=== PATIENT | male | born 1970 | race Caucasian/White ===

== ENCOUNTER 2018-01-27 16:37 | Outpatient (REF) | payer BC, SELFPAY ==
[2018-01-27 22:10] LABS: Abs Immature Grans 0.03 k/cumm (0.0-0.09); Absolute Basophil Count 0.02 k/cumm (0.0-0.2); Absolute Eosinophil Count 0.13 k/cumm (0.0-0.7); Absolute Monocyte Count 0.69 k/cumm (0.11-0.7); Absolute Neutrophil Count 7.26 k/cumm (1.2-6.7); Basophils % 0.2; Eosinophils % 1.3; HCT 41.8 % (40.0-50.0); HGB 13.8 g/dL (13.5-17.5); Immature Grans % 0.3; Lymphocytes % 17.3; Mean Corpuscular Volume 93.9 fL (80-95); Mean Platelet Volume 10.5 fL (8.0-11.0); Neutrophils % 73.9; Platelet Count 313 x1000/uL (130-400); RBC 4.45 m/cumm (4.50-6.00); RBC Distribution Width 11.8 % (11.8-14.1); White Blood Cell Count 9.83 k/cumm (4.4-10.8)
[2018-01-27 22:44] LABS: ALT 24 U/L (12-78); AST 26 U/L (15-37); Albumin 3.4 g/dL (3.4-5.0); Alkaline Phosphatase 71 U/L (46-116); Anion Gap 10.3 mmol/L (3-11); BUN 12 mg/dL (7-18); Bilirubin, Total 0.4 mg/dL (0.2-1.0); CO2 29.7 mmol/L (21.0-32.0); CREATININE 0.92 mg/dL (0.70-1.30); Calcium 8.9 mg/dL (8.5-10.1); Chloride 103 mmol/L (98-107); Glucose 108 mg/dL (70-100); Sodium 143 mmol/L (136-145); Total Protein 7.2 g/dL (6.4-8.2)
== END 2018-01-27 16:57 ==
LOC: NCHCN 16:37
PROVIDERS: PCP Internal Medicine; Visit Provider Nurse Practitioner Family
DX: K59.00 Constipation, unspecified (principal); R10.9 Unspecified abdominal pain
CPT/HCPCS: 80053; 85025

== ENCOUNTER 2018-01-29 12:47 | Outpatient (REF) | payer BC, SELFPAY ==
[2018-01-29 21:57] LABS: Abs Immature Grans 0.02 k/cumm (0.0-0.09); Absolute Basophil Count 0.01 k/cumm (0.0-0.2); Absolute Eosinophil Count 0.09 k/cumm (0.0-0.7); Absolute Monocyte Count 1.17 k/cumm (0.11-0.7); Basophils % 0.1; Eosinophils % 0.7; HCT 40.9 % (40.0-50.0); HGB 13.3 g/dL (13.5-17.5); Immature Grans % 0.2; Lymphocytes % 13.1; Mean Corp. HGB Concentration 32.5 g/dL (32.0-36.0); Mean Corpuscular Hemoglobin 30.7 pg (27.0-33.0); Mean Corpuscular Volume 94.5 fL (80-95); Mean Platelet Volume 10.4 fL (8.0-11.0); Monocytes % 8.9; Platelet Count 294 x1000/uL (130-400); RBC 4.33 m/cumm (4.50-6.00); RBC Distribution Width 11.7 % (11.8-14.1)
[2018-01-29 22:14] LABS: Absolute Lymphocyte Count 1.72 k/cumm (1.2-3.4); Absolute Neutrophil Count 10.09 k/cumm (1.2-6.7)
[2018-01-29 22:18] LABS: ALT 22 U/L (12-78); AST 20 U/L (15-37); Albumin 3.3 g/dL (3.4-5.0); Alkaline Phosphatase 67 U/L (46-116); Anion Gap 9.6 mmol/L (3-11); BUN 7 mg/dL (7-18); Bilirubin, Total 0.5 mg/dL (0.2-1.0); CO2 29.4 mmol/L (21.0-32.0); CREATININE 0.89 mg/dL (0.70-1.30); Calcium 8.4 mg/dL (8.5-10.1); Chloride 102 mmol/L (98-107); Glucose 85 mg/dL (70-100); Sodium 141 mmol/L (136-145)
== END 2018-01-29 13:07 ==
LOC: NCHCN 12:47
PROVIDERS: PCP Internal Medicine; Visit Provider Nurse Practitioner Family
DX: K59.00 Constipation, unspecified (principal); R10.30 Lower abdominal pain, unspecified; R30.0 Dysuria
CPT/HCPCS: 80053; 85025; 87086

== ENCOUNTER 2018-01-31 16:24 | Inpatient (IN) | payer BC, SELFPAY ==
[2018-01-31 16:30] VITALS: BP 129/72; PULSE 105; RESP 18; TEMP 36.6; O2SAT 97
--- NOTE | 2018-01-31 16:45 | DI.CT_ITS ---
SYMPTOMS/DIAGNOSIS: LEFT LOWER ABDOMINAL PAIN ABDOMINAL AND PELVIC CT: CT examination of the abdomen and pelvis was performed with a bolus infusion of 100 cc of Omnipaque 350. Images obtained through the lung bases are unremarkable. The liver, spleen and pancreas appear normal. Gallbladder and bile ducts are CT normal. Adrenals and kidneys appear normal. Abdominal aorta is of normal diameter and no major vascular abnormality is seen. No significant abdominal wall hernia is seen. No significant abdominal or pelvic adenopathy is seen. Appendix appears normal. There is marked wall thickening of the sigmoid colon with very prominent pericolonic fat edema and some small quantities of free fluid in the pelvis. There is an intramural irregular fluid collection measuring up to about 5 x 3 cm in diameter on transaxial imaging consistent with an intramural abscess. No free air identified. CONCLUSION: Severe diverticulitis with presumed intramural abscess as described above.
[2018-01-31 16:46] LABS: Bilirubin Negative (Negative); Blood Trace-lysed (Negative); Clarity Clear; Glucose Negative (Negative); Ketones Negative (Negative); Leukocyte Esterase Negative (Negative); Nitrite Negative (Negative)
--- NOTE | 2018-01-31 16:46 | W.ED.GENAD ---
Discharge Plan Disposition Patient Disposition: [facility] INPATIENT Condition: Stable Discharge Details Chief Complaint: Abd Prob Clinical Impression: Diverticulitis of intestine with abscess Reason For Visit: DIVERTICULITIS WITH ABSCESS Admit Date/Time: 01/31/18 18:52 Admit Provider: Diane House Attending Provider: Diane House Primary Care Provider: Shubham Tabor ED Provider: Blas Francis Medical Decision Making 47 yo male wh odenies chronic medical problems comes in with cc of 1 week of left lower abdominal pain, constipation and difficulty urinating. Based on his exam could be diverticulitis, will image to eval for this among other pathologies. No upper abdominal pain to suggest hepatitis. No testicle pain or swelling and normal cremasteric reflex so do not suspect torsion at this time labs unremarkable, pt remains stable. His CT shows diverticulitis with 3cm intramural abscess per radiology. Spoke with Dr. House who will admit, zosyn ordered. Pt agrees with plan Differential Diagnosis diverticulitis, kidney stone, constipation Imaging Data Radiologic Study: Attestation: I personally reviewed and interpreted this imaging study as follows: Imaging: CT Scan Radiologist's impression: diverticulitis with abscess Lab Data Lab results reviewed: Yes I reviewed the patient's lab results. HPI General Mode of arrival: ambulatory. Date/Time Provider Initiated Documentation: 01/31/18 16:27. Limitations to Documentation: no limitations. Information obtained by: patient. History of Present Illness 47 year old M presents to the emergency department with the chief complaint of abdominal pain, described as moderate, with intensity rated at 6. Quality is described as stabbing, and is localized to the abdomen. Patient reports no radiation. Patient started experiencing this week(s) (1) and it has been constant. No relieving factors improve symptom(s), No exacerbating factors reported . Patient notes other (difficulty urinating, constipation). Patient did receive the following treatments prior to arrival, none Related Data Home Medications Medication Instructions Recorded Confirmed Unknown [No Known Home Meds] 01/31/18 01/31/18 Allergies Allergy/AdvReac Type Severity Reaction Status Date / Time No Known Allergies Allergy Unverified 01/31/18 18:02 General Stated Complaint: Abd Prob CESAR: 3 Review of Systems Review of Systems All systems reviewed & are unremarkable except as noted in HPI and below Constitutional Denies chills and Denies fever(s) ENT Denies change in voice Cardiovascular Denies chest pain and Denies dyspnea Respiratory Denies dyspnea Gastrointestinal Denies vomiting Allergic/Immunologic Reports urticaria PFSH Social History Smoking/Tobacco Use Status: Never Exam Const General: no acute distress Orientation: alert HENMT Head: normal to inspection Ears: external ears normal General nose exam: external nose normal Mouth: moist mucous membranes Eyes General: appearance normal, both eyes and all related structures Neck Neck: normal visual inspection Resp Effort & Inspection: normal respiratory effort and able to speak in complete sentences Cardio Rate: regular rate GI Inspection: normal to inspection and other (llq pain without guarding or rebound, no other pain elsewhere) Skin General skin exam: no rashes or lesions noted Neuro General: alert and oriented x3 Extrem General: normal to inspection Psych Mental Status: mental status grossly normal Course Vital Signs Temperature 36.6 C 01/31/18 16:30 Pulse 105 H 01/31/18 16:30 Respiratory Rate 18 01/31/18 16:30 Blood Pressure 129/72 01/31/18 16:30 Pulse Oximetry 97 01/31/18 16:30 Temperature 36.6 C 01/31/18 16:30 Temperature Source Temporal Artery Scan 01/31/18 16:30 Pulse 105 H 01/31/18 16:30 Respiratory Rate 18 01/31/18 16:30 Respiratory Effort Non-Labored 01/31/18 16:34 Blood Pressure 129/72 01/31/18 16:30 Blood Pressure Position Sitting 01/31/18 16:30 Pulse Oximetry 97 01/31/18 16:30 Oxygen Delivery Method Room Air 01/31/18 16:30 Oxygen Flow Rate 0 01/31/18 16:30 Pain Level 8 01/31/18 16:30
--- NOTE | 2018-01-31 16:49 | ED.GENADUL_ITS ---
Discharge Plan Disposition Patient Disposition: [facility] INPATIENT Condition: Stable Discharge Details Chief Complaint: Abd Prob Clinical Impression: Diverticulitis of intestine with abscess Reason For Visit: DIVERTICULITIS WITH ABSCESS Admit Date/Time: 01/31/18 18:52 Admit Provider: Diane House Attending Provider: Diane House Primary Care Provider: Shubham Tabor ED Provider: Blas Francis Medical Decision Making 47 yo male wh odenies chronic medical problems comes in with cc of 1 week of left lower abdominal pain, constipation and difficulty urinating. Based on his exam could be diverticulitis, will image to eval for this among other pathologies. No upper abdominal pain to suggest hepatitis. No testicle pain or swelling and normal cremasteric reflex so do not suspect torsion at this time labs unremarkable, pt remains stable. His CT shows diverticulitis with 3cm intramural abscess per radiology. Spoke with Dr. House who will admit, zosyn ordered. Pt agrees with plan Differential Diagnosis diverticulitis, kidney stone, constipation Imaging Data Radiologic Study: Attestation: I personally reviewed and interpreted this imaging study as follows: Imaging: CT Scan Radiologist's impression: diverticulitis with abscess Lab Data Lab results reviewed: Yes I reviewed the patient's lab results. HPI General Mode of arrival: ambulatory . Date/Time Provider Initiated Documentation: 01/31/18 16:27 . Limitations to Documentation: no limitations . Information obtained by: patient . History of Present Illness 47 year old M presents to the emergency department with the chief complaint of abdominal pain, described as moderate, with intensity rated at 6. Quality is described as stabbing, and is localized to the abdomen. Patient reports no radiation. Patient started experiencing this week(s) (1) and it has been constant. No relieving factors improve symptom(s), No exacerbating factors reported . Patient notes other (difficulty urinating, constipation). Patient did receive the following treatments prior to arrival, none Related Data Home Medications Medication Instructions Recorded Confirmed Unknown [No Known Home Meds] 01/31/18 01/31/18 Allergies Allergy/AdvReac Type Severity Reaction Status Date / Time No Known Allergies Allergy Unverified 01/31/18 18:02 General Stated Complaint: Abd Prob CESAR: 3 Review of Systems Review of Systems All systems reviewed & are unremarkable except as noted in HPI and below Constitutional Denies chills and Denies fever(s) ENT Denies change in voice Cardiovascular Denies chest pain and Denies dyspnea Respiratory Denies dyspnea Gastrointestinal Denies vomiting Allergic/Immunologic Reports urticaria PFSH Social History Smoking/Tobacco Use Status: Never Exam Const General: no acute distress Orientation: alert HENMT Head: normal to inspection Ears: external ears normal General nose exam: external nose normal Mouth: moist mucous membranes Eyes General: appearance normal, both eyes and all related structures Neck Neck: normal visual inspection Resp Effort & Inspection: normal respiratory effort and able to speak in complete sentences Cardio Rate: regular rate GI Inspection: normal to inspection and other (llq pain without guarding or rebound , no other pain elsewhere) Skin General skin exam: no rashes or lesions noted Neuro General: alert and oriented x3 Extrem General: normal to inspection Psych Mental Status: mental status grossly normal Course Vital Signs Temperature 36.6 C 01/31/18 16:30 Pulse 105 H 01/31/18 16:30 Respiratory Rate 18 01/31/18 16:30 Blood Pressure 129/72 01/31/18 16:30 Pulse Oximetry 97 01/31/18 16:30 Temperature 36.6 C 01/31/18 16:30 Temperature Source Temporal Artery Scan 01/31/18 16:30 Pulse 105 H 01/31/18 16:30 Respiratory Rate 18 01/31/18 16:30 Respiratory Effort Non-Labored 01/31/18 16:34 Blood Pressure 129/72 01/31/18 16:30 Blood Pressure Position Sitting 01/31/18 16:30 Pulse Oximetry 97 01/31/18 16:30 Oxygen Delivery Method Room Air 01/31/18 16:30 Oxygen Flow Rate 0 01/31/18 16:30 Pain Level 8 01/31/18 16:30
[2018-01-31] MEDS: Ketorolac 15 MG/ML VIAL (16:59)
[2018-01-31] MEDS: Normal Saline 1,000 ML 1000 ML IV (16:59)
[2018-01-31 17:00] LABS: Bacteria Negative HPF (Negative); C & S Indicated? No; Casts Negative LPF (Negative); Crystals Negative HPF (Negative); Epithelial Cells Negative HPF (Negative); Mucus Negative (Negative); Other Cells Negative (Negative); RBC 0-2 (0-2); WBC Negative HPF (0-5)
[2018-01-31 17:02] LABS: Abs Immature Grans 0.03 k/cumm (0.0-0.09); Absolute Basophil Count 0.01 k/cumm (0.0-0.2); Absolute Lymphocyte Count 1.43 k/cumm (1.2-3.4); Absolute Monocyte Count 1.05 k/cumm (0.11-0.7); Absolute Neutrophil Count 7.81 k/cumm (1.2-6.7); Basophils % 0.1; HCT 43.7 % (40.0-50.0); HGB 14.5 g/dL (13.5-17.5); Immature Grans % 0.3; Lymphocytes % 13.7; Mean Corp. HGB Concentration 33.2 g/dL (32.0-36.0); Mean Corpuscular Hemoglobin 30.6 pg (27.0-33.0); Mean Corpuscular Volume 92.2 fL (80-95); Mean Platelet Volume 9.7 fL (8.0-11.0); Monocytes % 10.1; Neutrophils % 74.8; Platelet Count 310 x1000/uL (130-400); RBC 4.74 m/cumm (4.50-6.00); RBC Distribution Width 11.6 % (11.8-14.1); White Blood Cell Count 10.43 k/cumm (4.4-10.8)
[2018-01-31 17:15] LABS: ALT 22 U/L (12-78); AST 18 U/L (15-37); Albumin 3.2 g/dL (3.4-5.0); Alkaline Phosphatase 67 U/L (46-116); Anion Gap 10.4 mmol/L (3-11); BUN 8 mg/dL (7-18); Bilirubin, Total 0.5 mg/dL (0.2-1.0); CO2 29.6 mmol/L (21.0-32.0); CREATININE 1.04 mg/dL (0.70-1.30); Chloride 97 mmol/L (98-107); Glucose 104 mg/dL (70-100); Lipase 83 U/L (73-393); Potassium 3.7 mmol/L (3.5-5.1); Sodium 137 mmol/L (136-145); Total Protein 8.3 g/dL (6.4-8.2)
[2018-01-31] MEDS: Omnipaque 350 MG/ML 100 ML BTL IJ (17:31)
--- NOTE | 2018-01-31 18:05 | DI.VRAD_ITS ---
EXAM: CT Abdomen and Pelvis With Intravenous Contrast CLINICAL HISTORY: 47 years old, male; Pain; Abdominal pain; Localized; Left lower quadrant (llq); Patient HX: Left lower abdominal pain TECHNIQUE: Axial computed tomography images of the abdomen and pelvis with intravenous contrast. Coronal and sagittal reformatted images were created and reviewed. COMPARISON: No relevant prior studies available. FINDINGS: Appendix appears normal. Inflammatory process of the mid sigmoid colon consistent with a focal colitis less likely diverticulitis. There appears to be an approximate 3 cm intramural abscess. No additional abscess formation or extraluminal air. No evidence of bowel obstruction. No obstructive uropathy. No significant free fluid. IMPRESSION: Marked diverticulitis of the mid sigmoid colon with a prominent intramural abscess but no additional abscess formation or extraluminal air. Dictated and Authenticated by: Rigo Paulino MD. Ordering:GLENDA CASIANO MD
[2018-01-31 18:57] VITALS: BP 108/67; PULSE 76; RESP 16; O2SAT 94
[2018-01-31 19:15] VITALS: BP 96/58; PULSE 76; RESP 16; TEMP 36.4; O2SAT 94
[2018-01-31] MEDS: Normal Saline 1,000 ML 150 ML IV (20:05)
[2018-01-31] MEDS: PIPERACILLIN/TAZO 4.5 GM in Normal Saline 100 ML IVPB (20:05)
[2018-01-31 21:40] VITALS: BP 113/58; PULSE 68; RESP 16; O2SAT 100
[2018-01-31] MEDS: MORPHine 4 MG/ML SYR IVP (21:41)
[2018-01-31] MEDS: Normal Saline Flush 10 ML SYR 20 ML (21:56)
[2018-01-31] MEDS: ACETAMINOPHEN 1,000 MG/100 ML BTL 400 MG IVPB (22:24)
[2018-02-01] MEDS: PIPERACILLIN/TAZO 4.5 GM in Normal Saline 100 ML IVPB ×4 (02:05→20:15)
[2018-02-01] MEDS: Ketorolac 30 MG/ML VIAL IM ×2 (02:05→07:54)
[2018-02-01] MEDS: Normal Saline Flush 10 ML SYR 20 ML ×2 (02:06→20:15)
[2018-02-01] MEDS: ACETAMINOPHEN 1,000 MG/100 ML BTL 400 MG IVPB ×3 (03:53→16:15)
[2018-02-01] MEDS: Normal Saline 1,000 ML 150 ML IV ×4 (03:53→18:08)
[2018-02-01 06:48] LABS: Abs Immature Grans 0.01 k/cumm (0.0-0.09); Absolute Basophil Count 0.02 k/cumm (0.0-0.2); Absolute Eosinophil Count 0.11 k/cumm (0.0-0.7); Absolute Lymphocyte Count 1.06 k/cumm (1.2-3.4); Absolute Monocyte Count 0.79 k/cumm (0.11-0.7); Absolute Neutrophil Count 6.38 k/cumm (1.2-6.7); Basophils % 0.2; Eosinophils % 1.3; HGB 12.6 g/dL (13.5-17.5); Immature Grans % 0.1; Lymphocytes % 12.7; Mean Corp. HGB Concentration 32.3 g/dL (32.0-36.0); Mean Corpuscular Hemoglobin 30.4 pg (27.0-33.0); Mean Corpuscular Volume 94.2 fL (80-95); Mean Platelet Volume 9.6 fL (8.0-11.0); Monocytes % 9.4; Neutrophils % 76.3; Platelet Count 257 x1000/uL (130-400); RBC 4.14 m/cumm (4.50-6.00); RBC Distribution Width 11.5 % (11.8-14.1); White Blood Cell Count 8.37 k/cumm (4.4-10.8)
[2018-02-01 07:01] LABS: ALT 16 U/L (12-78); AST 15 U/L (15-37); Albumin 2.5 g/dL (3.4-5.0); Alkaline Phosphatase 57 U/L (46-116); Anion Gap 7.8 mmol/L (3-11); BUN 10 mg/dL (7-18); Bilirubin, Total 0.5 mg/dL (0.2-1.0); CO2 28.2 mmol/L (21.0-32.0); CREATININE 0.99 mg/dL (0.70-1.30); Calcium 8.1 mg/dL (8.5-10.1); Chloride 105 mmol/L (98-107); Glucose 91 mg/dL (70-100); Potassium 3.8 mmol/L (3.5-5.1); Sodium 141 mmol/L (136-145); Total Protein 6.6 g/dL (6.4-8.2)
[2018-02-01 07:35] VITALS: BP 104/70; PULSE 59; RESP 18; TEMP 37.1; O2SAT 96
--- NOTE | 2018-02-01 11:18 | PHARADMIT ---
Addendum entered by Lorenza Beauchamp 02/04/18 11:50: Pharmacy Note Subjective diverticulitis with abcess, may need more imaging depending on labs Objective vs ok, Assessment pip/tazo IV continues day 5, BC pending Plan continue to watch VS, labs and for med changes Original Note: Addendum entered by Delia Ayers 02/03/18 10:46: Pharmacy Note Subjective low grade fever overnight per progress note Objective VS-okay WBC-11.00(up) Assessment zosyn continues (day 4 starts this evening) acetaminophen and pantoprazole changed from IV to PO yesterday Plan continue to watch VS, labs and for med changes Original Note: Addendum entered by Delia Ayers 02/02/18 14:36: Pharmacy Note Subjective started on clear liquids today Objective VS-okay no labs Assessment zosyn continues (day 3 starts this evening) has been using ketorolac and acetaminophen for pain control no med changes Plan IV abx for a couple of days then PO, if fails IV abs may need surgery Original Note: Admission Pharmacy Clinical Review DIVERTICULITIS W/ABCESS (Obs) Code Status Full Code Current Weight 77.111 kg Renally Cleared and Narrow Therapeutic Index Meds QTc Value / Action Taken BP Control, Fever BP 104/70 Afebrile Pain 6/10 Electrolytes reviewed in range DVT Prophylaxis Opiate Usage / Scheduled Bowel Regimen Ordered Yes/NO (diet is NPO at this time) Plt/SCr for Heparin / Enoxaparin Plt 257 SCr 0.99 INR for Warfarin H/H stable, WBC/Bands H/H 12.6/39.0 WBC 8.37 Antibiotic appropriateness Zosyn 4.5gm q6h Cultures and Sensitivities Surgical ABX d/c within 24 hr DM control / Insulin Dosing BG 91 Heart Failure (Check EF%) (PATRICK's, B-Block, Diuretics) IV to PO Switch Home Meds Reviewed Home Meds Not Ordered No home meds Comments CT shows 3cm abscess
--- NOTE | 2018-02-01 11:27 | PDOC.CMIN ---
- If Service Date Differs Date of service: 02/01/18 Time of Service: 11:27 Care Management Initial Assess REASON FOR HOSPITALIZATION:: Diverticulitis/abscess PAST MEDICAL HISTORY/PAST SURGICAL HISTORY:: No past medical history PREVIOUS FUNCTIONAL STATUS/SOCIAL/FAMILY SUPPORTS:: Manuel is a 47 year old male that lives locally and works at [employer]. His Nany is present he has two children one in 8th grade and the other in highschool. He is independent at home and active in the community. CURRENT FUNCTIONAL STATUS:: Manuel describes events that led to admission. He has been having abdominal pain on and off he was seen by his primary care several times prior to coming into the ED. He spoke to the oncall provider who directed him to the ED. Today he is alert he states his pain is well controlled. He does not want to take opioid pain relievers and states Toradol and Tylenol are controlling his pain. He states the morphine made him awful. ADVANCE DIRECTIVES:: None on file CM left a packet for review with patient Has patient been provided with information about the portal?: Yes Did the patient sign up for the portal?: No (provided information) CODE STATUS:: Full Code INSURANCE COVERAGE / FINANCIAL ISSUES:: BCBS CURRENT HOME/COMMUNITY SERVICES/EQUIPMENT:: None PRIMARY CARE PHYSICIAN:: POTENTIAL DISCHARGE NEEDS:: Follow up with surgical provider and primary scheduled prior to discharge. PATIENT/FAMILY EDUCATION NEEDS:: Discharge education, limitations and follow up plan of care. ANTICIPATED BARRIERS TO DISCHARGE:: None identified TRANSPORTATION:: Via private car with spouse PLAN:: Manuel is receiving IV antibiotics, toradol, and tylenol IV. He will be dicharged home when medically ready per provider. No anticipated services at time of discharge. CM to continue to provide support to pt, family and care team.
--- NOTE | 2018-02-01 11:38 | W.PM.HP.N ---
Date of service: 02/01/18 Time of Service: 11:00 Assessment and Plan (1) Diverticulitis of intestine with abscess without bleeding: Current visit: Yes Status: Acute A\\ Diverticulitis of sigmoid colon with 3 cm abscess. No free air. MOst likely has had mild diverticulitis since June. P\\ 1. Diverticulitis: Iv antibiotics for 2-3 days then will switch to Augmentin 875 mg tid for 14 days. If he fails IV antibiotic therapy may need laparoscopy with washout and drain placement vs Percutaneous drain placement vs sigmoid colectomy and ileostomy. This was all discussed in detail with Manuel and his . 2. Activity: up and ambulating tid 3. DVT prophylaxis: Lovenox 40 mg SQ daily and SCD's while in bed 4. Nutrition: NPO for now. May start on clear liquids tomorrow if his pain is better. Discussed low fiber diet once he is eating solids, for 2-3 weeks. 5. Pain Control: Continue with Toradol and Acetaminophen IV. Also has dilauded if needed. 6. Dis[facility]: [facility] days of IV antibiotics. Discharge to home once Medically stable. Will have him follow up with me in the office after discharge. he will need a Colonoscopy in 6-8 weeks to evaluate severity of his diverticulosis. Will also discuss at that time surgery vs no surgery. History of Present Illness Chief Complaint: Diverticulitis Narrative: Mr. Santana is a pleasant 47 year old male who came to the ER yesterday with 1 week of painful constipation. CT scan showed complicated diverticulitis with a 3 cm abscess. On talking to him he tells me that he has not felt right since June. In June he had a bout of painful constipation. He was seen at his PCP's and treated for constipation. He then had 2 more milder episodes of pain. One week ago his pain got acutely worse and he was seen on at his PCP office. He was started on Cipro for presumed diverticulitis as well as given a medication for his prostate. He states that he is having dysuria and urinary frequency. His pain is located in the LLQ and suprapubic area. His pain is about the same as last night. The toradol and tylenol have been keeping him comfortable. He did have some Morphine that caused him to have chest tightness. He has never had a colonoscopy. He also tells me that since june his BM's have not been normal. He used to go to the bathroom daily and the BM's were soft. He doesn't usually have constipation. His mother has diverticulitis. Review of Systems Constitutional Reports anorexia, Denies fever(s) and Denies lethargy Eyes Reports system reviewed and no additional complaints, except as docu Cardiovascular Denies chest pain, Denies chest pain at rest, Denies chest pain with activity, Denies rapid heart rate, Denies palpitations, Denies dyspnea and Denies dyspnea on exertion Respiratory Denies dyspnea and Denies dyspnea on exertion Gastrointestinal Reports as per HPI Genitourinary Reports as per HPI Musculoskeletal Reports system reviewed and no additional complaints, except as docu Endocrine Reports system reviewed and no additional complaints, except as docu and Denies palpitations Hematologic/Lymphatic Denies easy bleeding and Denies easy bruising PFSH Family History Mother Diverticulosis Medical History Diverticulitis of intestine with abscess without bleeding (Acute) Social History household members: family housing: house marital status: current occupational status: employed current occupation: [employer] Smoking/Tobacco Use Status: Never alcohol intake: current alcohol intake frequency: a few times a month substance use type: does not use Meds Home Medications Medication Instructions Recorded Confirmed Type Unknown [No Known Home Meds] 01/31/18 01/31/18 History Allergies Allergy/AdvReac Type Severity Reaction Status Date / Time morphine AdvReac Mild chest Verified 02/01/18 11:52 tighteness Exam Const General: healthy appearing, comfortable and no acute distress HENMT Head: normocephalic and atraumatic Resp Effort & Inspection: normal respiratory effort Auscultation: clear to auscultation bilaterally Cardio Rate: regular rate Rhythm: regular rhythm Heart Sounds: no gallops, no murmurs and no rubs GI Inspection: normal to inspection Palpation: soft, guarding in the LLQ and other (suprapubic) and no hepatosplenomegaly Auscultation: normal bowel sounds Rectal Exam: deferred Extrem General: no clubbing, cyanosis or edema Results Labs : 02/01/18 06:30 02/01/18 06:30 Laboratory Results - last 24 hr 01/31/18 01/31/18 01/31/18 16:39 16:50 16:50 WBC 10.43 RBC 4.74 Hgb 14.5 Hct 43.7 MCV 92.2 MCH 30.6 MCHC 33.2 RDW 11.6 L Plt Count 310 MPV 9.7 Immature Gran % 0.3 Neutrophils % 74.8 Lymphocytes % 13.7 Monocytes % 10.1 Eosinophils % 1.0 Basophils % 0.1 Absolute Neutrophils 7.81 H Absolute Lymphocytes 1.43 Absolute Monocytes 1.05 H Absolute Eosinophils 0.10 Absolute Basophils 0.01 Sodium 137 Potassium 3.7 Chloride 97 L Carbon Dioxide 29.6 Anion Gap 10.4 BUN 8 Creatinine 1.04 Estimated GFR/1.73 m2 >= 60.00 Glucose 104 H Calcium 9.0 Total Bilirubin 0.5 AST 18 ALT 22 Alkaline Phosphatase 67 Total Protein 8.3 H Albumin 3.2 L Lipase 83 Urine Color Yellow Urine Clarity Clear Urine pH 6.0 Ur Specific [place] 1.010 Urine Protein Negative Urine Ketones Negative Urine Blood Trace-lysed H Urine Nitrite Negative Urine Bilirubin Negative Urine Urobilinogen 1.0 H Ur Leukocyte Esterase Negative Urine RBC 0-2 Urine WBC Negative Ur Epithelial Cells Negative Urine Crystals Negative Urine Bacteria Negative Urine Casts Negative Urine Mucus Negative Urine Other Negative Ur Culture Indicated? No Urine Glucose Negative 02/01/18 02/01/18 06:30 06:30 WBC 8.37 RBC 4.14 L Hgb 12.6 L Hct 39.0 L MCV 94.2 MCH 30.4 MCHC 32.3 RDW 11.5 L Plt Count 257 MPV 9.6 Immature Gran % 0.1 Neutrophils % 76.3 Lymphocytes % 12.7 Monocytes % 9.4 Eosinophils % 1.3 Basophils % 0.2 Absolute Neutrophils 6.38 Absolute Lymphocytes 1.06 L Absolute Monocytes 0.79 H Absolute Eosinophils 0.11 Absolute Basophils 0.02 Sodium 141 Potassium 3.8 Chloride 105 Carbon Dioxide 28.2 Anion Gap 7.8 BUN 10 Creatinine 0.99 Estimated GFR/1.73 m2 >= 60.00 Glucose 91 Calcium 8.1 L Total Bilirubin 0.5 AST 15 ALT 16 Alkaline Phosphatase 57 Total Protein 6.6 Albumin 2.5 L Lipase Urine Color Urine Clarity Urine pH Ur Specific [place] Urine Protein Urine Ketones Urine Blood Urine Nitrite Urine Bilirubin Urine Urobilinogen Ur Leukocyte Esterase Urine RBC Urine WBC Ur Epithelial Cells Urine Crystals Urine Bacteria Urine Casts Urine Mucus Urine Other Ur Culture Indicated? Urine Glucose Last Vital Signs Temp 98.8 F 02/01/18 07:35 Pulse 59 L 02/01/18 07:35 Resp 18 02/01/18 07:35 BP 104/70 02/01/18 07:35 Pulse Ox 96 02/01/18 07:35
[2018-02-01 12:32] VITALS: BP 107/67; PULSE 58; RESP 17; TEMP 36.8; O2SAT 99
[2018-02-01] MEDS: Ketorolac 30 MG/ML VIAL IV ×2 (13:39→20:14)
[2018-02-01] MEDS: Pantoprazole 40 MG VIAL IVP (13:40)
[2018-02-01] MEDS: Enoxaparin 40 MG/0.4 ML SYR SC (13:40)
[2018-02-01 15:56] VITALS: BP 104/68; PULSE 58; RESP 18; TEMP 36.5; O2SAT 98
[2018-02-01 20:30] VITALS: BP 104/65; PULSE 56; RESP 18; TEMP 36.9; O2SAT 98
[2018-02-02 00:26] VITALS: BP 119/76; PULSE 69; RESP 18; TEMP 36.3; O2SAT 98
[2018-02-02] MEDS: PIPERACILLIN/TAZO 4.5 GM in Normal Saline 100 ML IVPB ×2 (02:09→07:52)
[2018-02-02] MEDS: Ketorolac 30 MG/ML VIAL IV ×2 (02:09→21:49)
--- NOTE | 2018-02-02 07:03 | W.PM.PROGNOT ---
Assessment and Plan (1) Diverticulitis of intestine with abscess without bleeding: Current visit: No Status: Acute A\\ Diverticulitis of sigmoid colon with 3 cm abscess. No free air. MOst likely has had mild diverticulitis since June. P\\ 1. Diverticulitis: Iv antibiotics for 2-3 days then will switch to Augmentin 875 mg tid for 14 days. If he fails IV antibiotic therapy may need laparoscopy with washout and drain placement vs Percutaneous drain placement vs sigmoid colectomy and ileostomy. This was all discussed in detail with Manuel and his . 2. Activity: up and ambulating tid 3. DVT prophylaxis: Lovenox 40 mg SQ daily and SCD's while in bed 4. Nutrition: Start on clear liquids 5. Pain Control: Continue with Toradol and Acetaminophen IV. Also has dilauded if needed. 6. Disposition: He will be here for 2 more days most likely so he can get at least 3 days of IV antibiotics. Discharge to home once Medically stable. Will have him follow up with me in the office after discharge. he will need a Colonoscopy in 6-8 weeks to evaluate severity of his diverticulosis. Will also discuss at that time surgery vs no surgery. Subjective Interval history since last seen: Patient is feeling a little better. pain is not as bad. He is passing flatus. No BM yet. Exam Resp Auscultation: clear to auscultation bilaterally Cardio Rate: regular rate Rhythm: regular rhythm GI Palpation: soft and tender (mild LLQ and suprapubic pain) Objective Objective Clinical Data: Abnormal lab results 02/01/18 Range/Units 06:30 Calcium 8.1 L (8.5-10.1) mg/dL Albumin 2.5 L (3.4-5.0) g/dL Vital Signs Temperature 97.3 F L 02/02/18 00:26 Temperature Source Tympanic 02/02/18 00:26 Pulse 69 02/02/18 00:26 Pulse Rhythm Regular 02/01/18 19:58 Respiratory Rate 18 02/02/18 00:26 Respiratory Effort 02/01/18 19:58 Respiratory Depth Normal 02/01/18 19:58 Respiratory Pattern Normal 02/01/18 19:58 Blood Pressure 119/76 02/02/18 00:26 Blood Pressure Position Sitting 01/31/18 16:30 Pulse Oximetry 98 02/02/18 00:26 Oxygen Delivery Method Room Air 02/02/18 00:26 Oxygen Flow Rate 0 02/02/18 00:26 Pain Level 6 02/02/18 02:09 Intake & Output 02/01/18 02/01/18 02/02/18 11:59 23:59 11:59 Intake Total 1732.5 / 1732.5 1300.0 / 1300.0 Output Total 700 / 700 300 / 300 Balance 1032.5 / 1032.5 1000.0 / 1000.0 Intake: IV 1732.5 / 1732.5 1300.0 / 1300.0 Output: Urine 700 / 700 300 / 300 Other: Urine Color Light [place] Yellow Urine Appearance Clear Clear Comment independantly to toilet Voiding Methods Toilet Laboratory Results WBC 8.37 k/cumm (4.4-10.8) 02/01/18 06:30 RBC 4.14 m/cumm (4.50-6.00) L 02/01/18 06:30 Hgb 12.6 g/dL (13.5-17.5) L 02/01/18 06:30 Hct 39.0 % (40.0-50.0) L 02/01/18 06:30 MCV 94.2 fL (80-95) 02/01/18 06:30 MCH 30.4 pg (27.0-33.0) 02/01/18 06:30 MCHC 32.3 g/dL (32.0-36.0) 02/01/18 06:30 RDW 11.5 % (11.8-14.1) L 02/01/18 06:30 Plt Count 257 x1000/uL (130-400) 02/01/18 06:30 MPV 9.6 fL (8.0-11.0) 02/01/18 06:30 Immature Gran % 0.1 02/01/18 06:30 Neutrophils % 76.3 02/01/18 06:30 Lymphocytes % 12.7 02/01/18 06:30 Monocytes % 9.4 02/01/18 06:30 Eosinophils % 1.3 02/01/18 06:30 Basophils % 0.2 02/01/18 06:30 Absolute Neutrophils 6.38 k/cumm (1.2-6.7) 02/01/18 06:30 Absolute Lymphocytes 1.06 k/cumm (1.2-3.4) L 02/01/18 06:30 Absolute Monocytes 0.79 k/cumm (0.11-0.7) H 02/01/18 06:30 Absolute Eosinophils 0.11 k/cumm (0.0-0.7) 02/01/18 06:30 Absolute Basophils 0.02 k/cumm (0.0-0.2) 02/01/18 06:30 Sodium 141 mmol/L (136-145) 02/01/18 06:30 Potassium 3.8 mmol/L (3.5-5.1) 02/01/18 06:30 Chloride 105 mmol/L (98-107) 02/01/18 06:30 Carbon Dioxide 28.2 mmol/L (21.0-32.0) 02/01/18 06:30 Anion Gap 7.8 mmol/L (3-11) 02/01/18 06:30 BUN 10 mg/dL (7-18) 02/01/18 06:30 Creatinine 0.99 mg/dL (0.70-1.30) 02/01/18 06:30 Estimated GFR/1.73 m2 >= 60.00 (mL/min/1.73m2) 02/01/18 06:30 Glucose 91 mg/dL (70-100) 02/01/18 06:30 Calcium 8.1 mg/dL (8.5-10.1) L 02/01/18 06:30 Total Bilirubin 0.5 mg/dL (0.2-1.0) 02/01/18 06:30 AST 15 U/L (15-37) 02/01/18 06:30 ALT 16 U/L (12-78) 02/01/18 06:30 Alkaline Phosphatase 57 U/L (46-116) 02/01/18 06:30 Total Protein 6.6 g/dL (6.4-8.2) 02/01/18 06:30 Albumin 2.5 g/dL (3.4-5.0) L 02/01/18 06:30 Lipase 83 U/L (73-393) 01/31/18 16:50 Urine Color Yellow (Yellow) 01/31/18 16:39 Urine Clarity Clear 10/13/18 16:39 Urine pH 6.0 (5-8) 01/31/18 16:39 Ur Specific [place] 1.010 (1.005-1.025) 01/31/18 16:39 Urine Protein Negative mg/dL (Negative) 01/31/18 16:39 Urine Ketones Negative mg/dL (Negative) 01/31/18 16:39 Urine Blood Trace-lysed (Negative) H 01/31/18 16:39 Urine Nitrite Negative (Negative) 01/31/18 16:39 Urine Bilirubin Negative (Negative) 01/31/18 16:39 Urine Urobilinogen 1.0 EU/dL (Up TO 0.2) H 01/31/18 16:39 Ur Leukocyte Esterase Negative (Negative) 01/31/18 16:39 Urine RBC 0-2 (0-2) 01/31/18 16:39 Urine WBC Negative HPF (0-5) 01/31/18 16:39 Ur Epithelial Cells Negative HPF (Negative) 01/31/18 16:39 Urine Crystals Negative HPF (Negative) 01/31/18 16:39 Urine Bacteria Negative HPF (Negative) 01/31/18 16:39 Urine Casts Negative LPF (Negative) 01/31/18 16:39 Urine Mucus Negative (Negative) 01/31/18 16:39 Urine Other Negative (Negative) 01/31/18 16:39 Ur Culture Indicated? No 01/31/18 16:39 Urine Glucose Negative mg/dL (Negative) 01/31/18 16:39
[2018-02-02] MEDS: Normal Saline 1,000 ML 150 ML IV (07:52)
[2018-02-02 08:12] VITALS: BP 116/75; PULSE 69; RESP 18; TEMP 37.1; O2SAT 99
[2018-02-02] MEDS: Normal Saline Flush 10 ML SYR IVP ×4 (10:00→21:51)
[2018-02-02] MEDS: ACETAMINOPHEN 1,000 MG/100 ML BTL 400 MG IVPB (13:46)
[2018-02-02 14:00] VITALS: BP 116/73; PULSE 65; RESP 18; TEMP 37.5; O2SAT 95
[2018-02-02] MEDS: Enoxaparin 40 MG/0.4 ML SYR SC (14:36)
--- NOTE | 2018-02-02 14:57 | PDOC.CMPRO ---
- If Service Date Differs Date of service: 02/02/18 Time of Service: 14:57 Care Management Progress Note S/O: CM met with patient at the bedside with his spouse. They have questions about the treatment plan of care. CM reviewed the current plan with patient and spouse including antibiotic therapy, pain management and transition to oral antibiotics upon discharge. Nany (spouse) would like to be updated by provider during rounding. Manuel and Nany have two children and one of their children is having her braces put on this week. Nany wants to ensure that she is aware of her spouse treatment while she continues to manage the children health care as well. CM provided support and active listening with patient and family, also into see patient. Manuel states his pain has improved he states he definitely needs pain management at night ti improve his rest. He does feel that he is improving, his spouse agrees. Manuel is tolerating a clear liquid diet. A:Manuel is a 47 year old male admitted with diverticulitis with abscess. IV antibiotics every 6 hours and pain management. P:Manuel will return home when medically ready. Per MD he will transition to oral antibiotics upon discharge. He will follow up with after discharge. CM to continue to provide support to Pt, family and care team ongoing discharge planning.
--- NOTE | 2018-02-02 15:06 | W.PM.PROGNOT ---
Assessment and Plan (1) Diverticulitis of intestine with abscess without bleeding: Current visit: No Status: Acute A\\ Diverticulitis of sigmoid colon with 3 cm abscess. No free air. MOst likely has had mild diverticulitis since June. Is feeling better on antibiotics. P\\ 1. Diverticulitis: Iv antibiotics for 2-3 days then will switch to Augmentin 875 mg tid for 14 days. If he fails IV antibiotic therapy may need laparoscopy with washout and drain placement vs Percutaneous drain placement vs sigmoid colectomy and ileostomy. This was all discussed in detail with Manuel and his . 2. Activity: up and ambulating tid 3. DVT prophylaxis: Lovenox 40 mg SQ daily and SCD's if not ambulating 4. Nutrition: switch to soft, low fiber diet 5. Pain Control: Continue with IV Toradol as needed and po Tylenol as needed 6. Disposition: He is doing well. Hopefully will be able to go home tomorrow on a soft, low fiber diet. He will need a Colonoscopy in 6-8 weeks to evaluate severity of his diverticulosis. Will also discuss at that time surgery vs no surgery. Subjective Interval history since last seen: Doing better this afternoon. Has had several liquid BM's. Pain continues to improve. He has done well with a clear liquid diet. Has been up and around today. Exam GI Palpation: soft and tender (mild tenderness) Auscultation: normal bowel sounds Objective Objective Clinical Data: Vital Signs Temperature 99.5 F 02/02/18 14:00 Temperature Source Tympanic 02/02/18 14:00 Pulse 65 02/02/18 14:00 Pulse Rhythm Regular 02/02/18 08:00 Respiratory Rate 18 02/02/18 14:00 Respiratory Effort Non-Labored 02/02/18 08:00 Respiratory Depth Normal 02/02/18 08:00 Respiratory Pattern Normal 02/02/18 08:00 Blood Pressure 116/73 02/02/18 14:00 Blood Pressure Position Sitting 01/31/18 16:30 Pulse Oximetry 95 02/02/18 14:00 Oxygen Delivery Method Room Air 02/02/18 14:00 Oxygen Flow Rate 0 02/02/18 14:00 Pain Level 5 02/02/18 13:46 Comment 02/02/18 08:12 Intake & Output 02/01/18 02/02/18 02/02/18 23:59 11:59 23:59 Intake Total 1400.0 / 1400.0 1340 / 1340 Output Total 300 / 300 Balance 1100.0 / 1100.0 1340 / 1340 Intake: IV 1400.0 / 1400.0 1100 / 1100 Oral 240 / 240 Output: Urine 300 / 300 Other: Urine Color Yellow Urine Appearance Clear Comment independantly to toilet pt voiding independently in toilet; urine not assessed. pt denies any issues at this time Stool Size Small Stool Characteristics Soft Voiding Methods Toilet Laboratory Results WBC 8.37 k/cumm (4.4-10.8) 02/01/18 06:30 RBC 4.14 m/cumm (4.50-6.00) L 02/01/18 06:30 Hgb 12.6 g/dL (13.5-17.5) L 02/01/18 06:30 Hct 39.0 % (40.0-50.0) L 02/01/18 06:30 MCV 94.2 fL (80-95) 02/01/18 06:30 MCH 30.4 pg (27.0-33.0) 02/01/18 06:30 MCHC 32.3 g/dL (32.0-36.0) 02/01/18 06:30 RDW 11.5 % (11.8-14.1) L 02/01/18 06:30 Plt Count 257 x1000/uL (130-400) 02/01/18 06:30 MPV 9.6 fL (8.0-11.0) 02/01/18 06:30 Immature Gran % 0.1 02/01/18 06:30 Neutrophils % 76.3 02/01/18 06:30 Lymphocytes % 12.7 02/01/18 06:30 Monocytes % 9.4 02/01/18 06:30 Eosinophils % 1.3 02/01/18 06:30 Basophils % 0.2 02/01/18 06:30 Absolute Neutrophils 6.38 k/cumm (1.2-6.7) 02/01/18 06:30 Absolute Lymphocytes 1.06 k/cumm (1.2-3.4) L 02/01/18 06:30 Absolute Monocytes 0.79 k/cumm (0.11-0.7) H 02/01/18 06:30 Absolute Eosinophils 0.11 k/cumm (0.0-0.7) 02/01/18 06:30 Absolute Basophils 0.02 k/cumm (0.0-0.2) 02/01/18 06:30 Sodium 141 mmol/L (136-145) 02/01/18 06:30 Potassium 3.8 mmol/L (3.5-5.1) 02/01/18 06:30 Chloride 105 mmol/L (98-107) 02/01/18 06:30 Carbon Dioxide 28.2 mmol/L (21.0-32.0) 02/01/18 06:30 Anion Gap 7.8 mmol/L (3-11) 02/01/18 06:30 BUN 10 mg/dL (7-18) 02/01/18 06:30 Creatinine 0.99 mg/dL (0.70-1.30) 02/01/18 06:30 Estimated GFR/1.73 m2 >= 60.00 (mL/min/1.73m2) 02/01/18 06:30 Glucose 91 mg/dL (70-100) 02/01/18 06:30 Calcium 8.1 mg/dL (8.5-10.1) L 02/01/18 06:30 Total Bilirubin 0.5 mg/dL (0.2-1.0) 02/01/18 06:30 AST 15 U/L (15-37) 02/01/18 06:30 ALT 16 U/L (12-78) 02/01/18 06:30 Alkaline Phosphatase 57 U/L (46-116) 02/01/18 06:30 Total Protein 6.6 g/dL (6.4-8.2) 02/01/18 06:30 Albumin 2.5 g/dL (3.4-5.0) L 02/01/18 06:30 Lipase 83 U/L (73-393) 01/31/18 16:50 Urine Color Yellow (Yellow) 01/31/18 16:39 Urine Clarity Clear 01/31/18 16:39 Urine pH 6.0 (5-8) 01/31/18 16:39 Ur Specific [place] 1.010 (1.005-1.025) 01/31/18 16:39 Urine Protein Negative mg/dL (Negative) 01/31/18 16:39 Urine Ketones Negative mg/dL (Negative) 01/31/18 16:39 Urine Blood Trace-lysed (Negative) H 01/31/18 16:39 Urine Nitrite Negative (Negative) 01/31/18 16:39 Urine Bilirubin Negative (Negative) 01/31/18 16:39 Urine Urobilinogen 1.0 EU/dL (Up TO 0.2) H 01/31/18 16:39 Ur Leukocyte Esterase Negative (Negative) 01/31/18 16:39 Urine RBC 0-2 (0-2) 01/31/18 16:39 Urine WBC Negative HPF (0-5) 01/31/18 16:39 Ur Epithelial Cells Negative HPF (Negative) 01/31/18 16:39 Urine Crystals Negative HPF (Negative) 01/31/18 16:39 Urine Bacteria Negative HPF (Negative) 01/31/18 16:39 Urine Casts Negative LPF (Negative) 01/31/18 16:39 Urine Mucus Negative (Negative) 01/31/18 16:39 Urine Other Negative (Negative) 01/31/18 16:39 Ur Culture Indicated? No 01/31/18 16:39 Urine Glucose Negative mg/dL (Negative) 01/31/18 16:39
[2018-02-02 15:49] VITALS: BP 102/65; PULSE 58; RESP 18; TEMP 37.4; O2SAT 97
[2018-02-02 21:23] VITALS: BP 112/71; PULSE 59; RESP 18; TEMP 38; O2SAT 97
[2018-02-02] MEDS: Acetaminophen 500 MG TAB 1000 MG PO (21:49)
[2018-02-02] MEDS: Melatonin 3 MG TAB PO (21:50)
[2018-02-02] MEDS: Pantoprazole 40 MG TABCR PO (21:50)
[2018-02-03 02:30] VITALS: BP 111/73; PULSE 51; RESP 16; TEMP 36.1; O2SAT 98
[2018-02-03] MEDS: Normal Saline Flush 10 ML SYR IVP ×5 (02:40→20:08)
--- NOTE | 2018-02-03 06:36 | W.PM.PROGNOT ---
Assessment and Plan (1) Diverticulitis of intestine with abscess without bleeding: Current visit: No Status: Acute A\\ Diverticulitis of sigmoid colon with 3 cm abscess. Had a low grade fever last night and night sweats. P\\ 1. Diverticulitis: Continue Iv Abx for another 24 hours. If he spikes another temp will get blood cultures. May also repeat his CT scan if Leukocytosis worsens. 2. Activity: up and ambulating tid 3. DVT prophylaxis: Lovenox 40 mg SQ daily and SCD's while in bed 4. Nutrition: On soft diet. Continue for now 5. Pain Control: Continue with Toradol IV. Tylenol po. Also has dilauded if needed. 6. Disposition: Will keep for another 24 hours of IV antibitics. Further recommendations pending lab results Subjective Interval history since last seen: Patient reports a fever last night and night sweats. No increase in pain. Passing flatus but minimal BM. Exam GI Inspection: normal to inspection Palpation: soft and tender (minimal suprabupic pain. No guarding or rebound) Auscultation: normal bowel sounds Objective Objective Clinical Data: Vital Signs Temperature 97.0 F L 02/03/18 02:30 Temperature Source Skin 02/03/18 02:30 Pulse 51 L 02/03/18 02:30 Pulse Rhythm Regular 02/03/18 02:30 Respiratory Rate 16 02/03/18 02:30 Respiratory Effort 02/03/18 02:30 Respiratory Depth Normal 02/03/18 02:30 Respiratory Pattern Normal 02/03/18 02:30 Blood Pressure 111/73 02/03/18 02:30 Blood Pressure Position Sitting 01/31/18 16:30 Pulse Oximetry 98 02/03/18 02:30 Oxygen Delivery Method Room Air 02/03/18 02:30 Oxygen Flow Rate 0 02/03/18 02:30 Pain Level 0 02/03/18 02:30 Comment 02/02/18 08:12 Intake & Output 02/02/18 02/02/18 02/03/18 11:59 23:59 11:59 Intake Total 1340 / 1340 480 / 480 350 / 350 Balance 1340 / 1340 480 / 480 350 / 350 Intake: IV 1100 / 1100 100 / 100 100 / 100 Oral 240 / 240 380 / 380 250 / 250 Other: Urine Color Yellow Urine Appearance Clear Comment pt voiding independently in toilet; urine not assessed. pt denies any issues at this time VOID X 1 IN TOILET AND FLUSHED. Stool Size Small Small Stool Characteristics Soft Soft Liquid Voiding Methods Toilet Toilet Toilet Laboratory Results WBC 8.37 k/cumm (4.4-10.8) 02/01/18 06:30 RBC 4.14 m/cumm (4.50-6.00) L 02/01/18 06:30 Hgb 12.6 g/dL (13.5-17.5) L 02/01/18 06:30 Hct 39.0 % (40.0-50.0) L 02/01/18 06:30 MCV 94.2 fL (80-95) 02/01/18 06:30 MCH 30.4 pg (27.0-33.0) 02/01/18 06:30 MCHC 32.3 g/dL (32.0-36.0) 02/01/18 06:30 RDW 11.5 % (11.8-14.1) L 02/01/18 06:30 Plt Count 257 x1000/uL (130-400) 02/01/18 06:30 MPV 9.6 fL (8.0-11.0) 02/01/18 06:30 Immature Gran % 0.1 02/01/18 06:30 Neutrophils % 76.3 02/01/18 06:30 Lymphocytes % 12.7 02/01/18 06:30 Monocytes % 9.4 02/01/18 06:30 Eosinophils % 1.3 02/01/18 06:30 Basophils % 0.2 02/01/18 06:30 Absolute Neutrophils 6.38 k/cumm (1.2-6.7) 02/01/18 06:30 Absolute Lymphocytes 1.06 k/cumm (1.2-3.4) L 02/01/18 06:30 Absolute Monocytes 0.79 k/cumm (0.11-0.7) H 02/01/18 06:30 Absolute Eosinophils 0.11 k/cumm (0.0-0.7) 02/01/18 06:30 Absolute Basophils 0.02 k/cumm (0.0-0.2) 02/01/18 06:30 Sodium 141 mmol/L (136-145) 02/01/18 06:30 Potassium 3.8 mmol/L (3.5-5.1) 02/01/18 06:30 Chloride 105 mmol/L (98-107) 02/01/18 06:30 Carbon Dioxide 28.2 mmol/L (21.0-32.0) 02/01/18 06:30 Anion Gap 7.8 mmol/L (3-11) 02/01/18 06:30 BUN 10 mg/dL (7-18) 02/01/18 06:30 Creatinine 0.99 mg/dL (0.70-1.30) 02/01/18 06:30 Estimated GFR/1.73 m2 >= 60.00 (mL/min/1.73m2) 02/01/18 06:30 Glucose 91 mg/dL (70-100) 02/01/18 06:30 Calcium 8.1 mg/dL (8.5-10.1) L 02/01/18 06:30 Total Bilirubin 0.5 mg/dL (0.2-1.0) 02/01/18 06:30 AST 15 U/L (15-37) 02/01/18 06:30 ALT 16 U/L (12-78) 02/01/18 06:30 Alkaline Phosphatase 57 U/L (46-116) 02/01/18 06:30 Total Protein 6.6 g/dL (6.4-8.2) 02/01/18 06:30 Albumin 2.5 g/dL (3.4-5.0) L 02/01/18 06:30 Lipase 83 U/L (73-393) 01/31/18 16:50 Urine Color Yellow (Yellow) 01/31/18 16:39 Urine Clarity Clear 01/31/18 16:39 Urine pH 6.0 (5-8) 01/31/18 16:39 Ur Specific [place] 1.010 (1.005-1.025) 01/31/18 16:39 Urine Protein Negative mg/dL (Negative) 01/31/18 16:39 Urine Ketones Negative mg/dL (Negative) 01/31/18 16:39 Urine Blood Trace-lysed (Negative) H 01/31/18 16:39 Urine Nitrite Negative (Negative) 01/31/18 16:39 Urine Bilirubin Negative (Negative) 01/31/18 16:39 Urine Urobilinogen 1.0 EU/dL (Up TO 0.2) H 01/31/18 16:39 Ur Leukocyte Esterase Negative (Negative) 01/31/18 16:39 Urine RBC 0-2 (0-2) 01/31/18 16:39 Urine WBC Negative HPF (0-5) 01/31/18 16:39 Ur Epithelial Cells Negative HPF (Negative) 01/31/18 16:39 Urine Crystals Negative HPF (Negative) 01/31/18 16:39 Urine Bacteria Negative HPF (Negative) 01/31/18 16:39 Urine Casts Negative LPF (Negative) 01/31/18 16:39 Urine Mucus Negative (Negative) 01/31/18 16:39 Urine Other Negative (Negative) 01/31/18 16:39 Ur Culture Indicated? No 01/31/18 16:39 Urine Glucose Negative mg/dL (Negative) 01/31/18 16:39
[2018-02-03 07:21] LABS: Abs Immature Grans 0.02 k/cumm (0.0-0.09); Absolute Basophil Count 0.01 k/cumm (0.0-0.2); Absolute Eosinophil Count 0.22 k/cumm (0.0-0.7); Absolute Neutrophil Count 8.35 k/cumm (1.2-6.7); Basophils % 0.1; HCT 36.5 % (40.0-50.0); Immature Grans % 0.2; Lymphocytes % 12.7; Mean Corp. HGB Concentration 32.9 g/dL (32.0-36.0); Mean Corpuscular Hemoglobin 30.6 pg (27.0-33.0); Mean Corpuscular Volume 93.1 fL (80-95); Mean Platelet Volume 10.5 fL (8.0-11.0); Monocytes % 9.1; Neutrophils % 75.9; Platelet Count 287 x1000/uL (130-400); RBC 3.92 m/cumm (4.50-6.00); RBC Distribution Width 11.6 % (11.8-14.1)
--- NOTE | 2018-02-03 07:51 | PDOC.CMPRO ---
Care Management Progress Note S/O: Per MD, IV ABX will continue and if Manuel develops another fever, she will order blood cultures as Manuel experienced night sweats last night as well as a fever-when discussing this with Manuel in person he reported he felt like he had a fever at the moment. CM encouraged Manuel to hit his RN button. GERRY Maurice arrived and confirmed that Manuel did have an elevated tempature. He also reported increased pain, and changes in urination amount. He was pleasant in interaction and forthcoming with information. Kaylene later reported MD had ordered repeat blood and urine cultures. CM will continue to follow. A: 47 year old male admitted to [facility] 02/01/18 with Diverticulitis with Abscess P: Manuel is receiving IV antibiotics, Toradol, and Tylenol IV. He will be discharged home when medically ready per provider. No anticipated services at time of discharge.
--- NOTE | 2018-02-03 08:02 | CMPROGNOTE_ITS ---
Care Management Progress Note S/O: Per MD, IV ABX will continue and if Manuel develops another fever, she will order blood cultures as Manuel experienced night sweats last night as well as a fever-when discussing this with Manuel in person he reported he felt like he had a fever at the moment. CM encouraged Manuel to hit his RN button. GERRY Maurice arrived and confirmed that Manuel did have an elevated tempature. He also reported increased pain, and changes in urination amount. He was pleasant in interaction and forthcoming with information. Kaylene later reported MD had ordered repeat blood and urine cultures. CM will continue to follow. A: 47 year old male admitted to [facility] 02/01/18 with Diverticulitis with Abscess P: Manuel is receiving IV antibiotics, Toradol, and Tylenol IV. He will be discharged home when medically ready per provider. No anticipated services at time of discharge.
[2018-02-03 08:05] LABS: Anion Gap 8.1 mmol/L (3-11); BUN 9 mg/dL (7-18); CO2 27.9 mmol/L (21.0-32.0); CREATININE 0.87 mg/dL (0.70-1.30); Calcium 8.3 mg/dL (8.5-10.1); Chloride 106 mmol/L (98-107); Glucose 92 mg/dL (70-100); Potassium 3.5 mmol/L (3.5-5.1); Sodium 142 mmol/L (136-145)
[2018-02-03] MEDS: Pantoprazole 40 MG TABCR PO (08:06)
[2018-02-03 09:14] VITALS: BP 109/74; PULSE 87; RESP 18; TEMP 36.5; O2SAT 94
[2018-02-03 13:48] VITALS: BP 113/69; PULSE 67; RESP 18; TEMP 38.1; O2SAT 98
[2018-02-03] MEDS: Enoxaparin 40 MG/0.4 ML SYR SC (14:29)
--- NOTE | 2018-02-03 15:28 | W.PM.PROGNOT ---
Assessment and Plan (1) Diverticulitis of intestine with abscess without bleeding: Current visit: No Status: Acute A\\ Diverticulitis of sigmoid colon with 3 cm abscess. Had a low grade fever last night and night sweats. Another fever this afternoon and not feeling as well. Blood cultures done today. P\\ 1. Diverticulitis: Continue Iv Abx. Recheck Labs in am. If WBC count increased then repeat CT scan with Iv/oral contrast for increase in size of abscess. May need possible drainage procedure. 2. Activity: up and ambulating tid 3. DVT prophylaxis: Lovenox 40 mg SQ daily and SCD's while in bed 4. Nutrition: Clear liquids 5. Pain Control: Continue with Toradol IV. Tylenol po. Also has dilauded if needed. Subjective Interval history since last seen: Manuel had another spike in temperature to 100.6. he also tells me that he has not felt hungry again and has had increased urinary frequency again. No increased abdominal pain Exam GI Palpation: soft and tender (suprapubic, no guarding or rebound) Auscultation: normal bowel sounds Objective Objective Clinical Data: Abnormal lab results 02/03/18 02/03/18 Range/Units 06:15 06:15 WBC 11.00 H (4.4-10.8) k/cumm RBC 3.92 L (4.50-6.00) m/cumm Hgb 12.0 L (13.5-17.5) g/dL Hct 36.5 L (40.0-50.0) % RDW 11.6 L (11.8-14.1) % Absolute Neutrophils 8.35 H (1.2-6.7) k/cumm Absolute Monocytes 1.00 H (0.11-0.7) k/cumm Calcium 8.3 L (8.5-10.1) mg/dL Vital Signs Temperature 100.6 F H 02/03/18 13:48 Temperature Source Tympanic 02/03/18 13:48 Pulse 67 02/03/18 13:48 Pulse Rhythm Regular 02/03/18 08:08 Respiratory Rate 18 02/03/18 13:48 Respiratory Effort 02/03/18 08:08 Respiratory Depth Normal 02/03/18 08:08 Respiratory Pattern Normal 02/03/18 08:08 Blood Pressure 113/69 02/03/18 13:48 Blood Pressure Position Sitting 01/31/18 16:30 Pulse Oximetry 98 02/03/18 13:48 Oxygen Delivery Method Room Air 02/03/18 13:48 Oxygen Flow Rate 0 02/03/18 13:48 Pain Level 0 02/03/18 02:30 Comment 02/03/18 09:14 Intake & Output 02/02/18 02/03/18 02/03/18 23:59 11:59 23:59 Intake Total 480 / 480 810 / 810 Balance 480 / 480 810 / 810 Weight 168 lb 13.985 oz Intake: IV 100 / 100 200 / 200 Oral 380 / 380 610 / 610 Other: Urine Color Yellow Urine Appearance Clear Comment voided in toilet and flushed. pt independant to br, reports going frequently and not much at a time will put hat in toilet to measure Stool Size Small Stool Characteristics Soft Liquid Voiding Methods Toilet Toilet Laboratory Results WBC 11.00 k/cumm (4.4-10.8) H 02/03/18 06:15 RBC 3.92 m/cumm (4.50-6.00) L 02/03/18 06:15 Hgb 12.0 g/dL (13.5-17.5) L 02/03/18 06:15 Hct 36.5 % (40.0-50.0) L 02/03/18 06:15 MCV 93.1 fL (80-95) 02/03/18 06:15 MCH 30.6 pg (27.0-33.0) 02/03/18 06:15 MCHC 32.9 g/dL (32.0-36.0) 02/03/18 06:15 RDW 11.6 % (11.8-14.1) L 02/03/18 06:15 Plt Count 287 x1000/uL (130-400) 02/03/18 06:15 MPV 10.5 fL (8.0-11.0) 02/03/18 06:15 Immature Gran % 0.2 02/03/18 06:15 Neutrophils % 75.9 02/03/18 06:15 Lymphocytes % 12.7 02/03/18 06:15 Monocytes % 9.1 02/03/18 06:15 Eosinophils % 2.0 02/03/18 06:15 Basophils % 0.1 02/03/18 06:15 Absolute Neutrophils 8.35 k/cumm (1.2-6.7) H 02/03/18 06:15 Absolute Lymphocytes 1.40 k/cumm (1.2-3.4) 02/03/18 06:15 Absolute Monocytes 1.00 k/cumm (0.11-0.7) H 02/03/18 06:15 Absolute Eosinophils 0.22 k/cumm (0.0-0.7) 02/03/18 06:15 Absolute Basophils 0.01 k/cumm (0.0-0.2) 02/03/18 06:15 Sodium 142 mmol/L (136-145) 02/03/18 06:15 Potassium 3.5 mmol/L (3.5-5.1) 02/03/18 06:15 Chloride 106 mmol/L (98-107) 02/03/18 06:15 Carbon Dioxide 27.9 mmol/L (21.0-32.0) 02/03/18 06:15 Anion Gap 8.1 mmol/L (3-11) 02/03/18 06:15 BUN 9 mg/dL (7-18) 02/03/18 06:15 Creatinine 0.87 mg/dL (0.70-1.30) 02/03/18 06:15 Estimated GFR/1.73 m2 >= 60.00 (mL/min/1.73m2) 02/03/18 06:15 Glucose 92 mg/dL (70-100) 02/03/18 06:15 Calcium 8.3 mg/dL (8.5-10.1) L 02/03/18 06:15 Total Bilirubin 0.5 mg/dL (0.2-1.0) 02/01/18 06:30 AST 15 U/L (15-37) 02/01/18 06:30 ALT 16 U/L (12-78) 02/01/18 06:30 Alkaline Phosphatase 57 U/L (46-116) 02/01/18 06:30 Total Protein 6.6 g/dL (6.4-8.2) 02/01/18 06:30 Albumin 2.5 g/dL (3.4-5.0) L 02/01/18 06:30 Lipase 83 U/L (73-393) 01/31/18 16:50 Urine Color Yellow (Yellow) 01/31/18 16:39 Urine Clarity Clear 01/31/18 16:39 Urine pH 6.0 (5-8) 01/31/18 16:39 Ur Specific [place] 1.010 (1.005-1.025) 01/31/18 16:39 Urine Protein Negative mg/dL (Negative) 01/31/18 16:39 Urine Ketones Negative mg/dL (Negative) 01/31/18 16:39 Urine Blood Trace-lysed (Negative) H 01/31/18 16:39 Urine Nitrite Negative (Negative) 01/31/18 16:39 Urine Bilirubin Negative (Negative) 01/31/18 16:39 Urine Urobilinogen 1.0 EU/dL (Up TO 0.2) H 01/31/18 16:39 Ur Leukocyte Esterase Negative (Negative) 01/31/18 16:39 Urine RBC 0-2 (0-2) 01/31/18 16:39 Urine WBC Negative HPF (0-5) 01/31/18 16:39 Ur Epithelial Cells Negative HPF (Negative) 01/31/18 16:39 Urine Crystals Negative HPF (Negative) 01/31/18 16:39 Urine Bacteria Negative HPF (Negative) 01/31/18 16:39 Urine Casts Negative LPF (Negative) 01/31/18 16:39 Urine Mucus Negative (Negative) 01/31/18 16:39 Urine Other Negative (Negative) 01/31/18 16:39 Ur Culture Indicated? No 01/31/18 16:39 Urine Glucose Negative mg/dL (Negative) 01/31/18 16:39
[2018-02-03 16:03] VITALS: BP 131/79; PULSE 60; RESP 18; TEMP 37.9; O2SAT 96
[2018-02-03 17:11] LABS: Bilirubin Negative (Negative); Blood Moderate (Negative); Clarity Clear; Glucose Negative (Negative); Ketones Negative (Negative); Leukocyte Esterase Negative (Negative); Nitrite Negative (Negative); Urobilinogen >=8.0 EU/dL (Up TO 0.2)
[2018-02-03 17:23] LABS: Bacteria Negative HPF (Negative); C & S Indicated? No; Casts Negative LPF (Negative); Crystals Negative HPF (Negative); Epithelial Cells Negative HPF (Negative); Mucus Negative (Negative); Other Cells Negative (Negative); WBC 0-2 HPF (0-5)
[2018-02-03] MEDS: Ketorolac 30 MG/ML VIAL IV (17:43)
[2018-02-03 18:51] VITALS: BP 120/74; PULSE 57; RESP 18; TEMP 37.8; O2SAT 95
[2018-02-03] MEDS: Melatonin 3 MG TAB PO (21:55)
[2018-02-03 23:35] VITALS: BP 100/65; PULSE 47; RESP 14; TEMP 36.9; O2SAT 94
[2018-02-04] MEDS: Normal Saline Flush 10 ML SYR IVP ×6 (02:25→21:04)
[2018-02-04 06:55] VITALS: BP 108/70; PULSE 57; RESP 18; TEMP 36.7; O2SAT 97
[2018-02-04 07:10] VITALS: BP 131/79; PULSE 60; RESP 18; TEMP 37.9; O2SAT 96
[2018-02-04 07:28] LABS: Abs Immature Grans 0.02 k/cumm (0.0-0.09); Absolute Basophil Count 0.02 k/cumm (0.0-0.2); Absolute Eosinophil Count 0.27 k/cumm (0.0-0.7); Absolute Lymphocyte Count 1.56 k/cumm (1.2-3.4); Absolute Neutrophil Count 7.54 k/cumm (1.2-6.7); Basophils % 0.2; Eosinophils % 2.6; HCT 36.2 % (40.0-50.0); HGB 11.8 g/dL (13.5-17.5); Immature Grans % 0.2; Lymphocytes % 15.3; Mean Corp. HGB Concentration 32.6 g/dL (32.0-36.0); Mean Corpuscular Hemoglobin 30.5 pg (27.0-33.0); Mean Corpuscular Volume 93.5 fL (80-95); Mean Platelet Volume 10.1 fL (8.0-11.0); Monocytes % 7.8; Neutrophils % 73.9; Platelet Count 318 x1000/uL (130-400); RBC 3.87 m/cumm (4.50-6.00); RBC Distribution Width 11.8 % (11.8-14.1); White Blood Cell Count 10.21 k/cumm (4.4-10.8)
--- NOTE | 2018-02-04 07:32 | PGE_ITS ---
Documented by User: MELLISA Calle 02/04/18 11:37 Assessment and Plan (1) Diverticulitis of intestine with abscess without bleeding: Current visit: No Status: Acute A\\ Diverticulitis of sigmoid colon with 3 cm abscess. Low grade fever yesterday morning and afternoon. No fevers over night. Blood cultures pending. P\\ 1. Diverticulitis: Continue Iv Abx. AM labs pending. If WBC count increased then repeat CT scan with Iv/oral contrast for increase in size of abscess. May need possible drainage procedure. 2. Activity: up and ambulating tid 3. DVT prophylaxis: Lovenox 40 mg SQ daily and SCD's while in bed 4. Nutrition: Clear liquids 5. Pain Control: Continue with Toradol IV. Tylenol po. Also has dilauded if needed. Subjective Patient reports: no bowel movement; denies nausea and vomiting Interval history since last seen: Mr. Santana states that he is feeling better this morning and was able to get some sleep last night. He states that he has been passing mucus, but no BMs since admission. He describes his pain as a really bad, stomach ache and is crampy. The pain is located in his lower abdomen LLQ>RLQ. Pain has been well managed with Toradol which was last given last night around 2200. He states that he has been tolerating clear liquid diet , however does not have an appetite. Exam Const General: cooperative and comfortable Orientation: alert and oriented x3 HENMT Ears: hearing grossly normal bilaterally Resp Effort & Inspection: normal respiratory effort Auscultation: clear to auscultation bilaterally and no wheezes Cardio Jugular venous pressure: no JVD Rate: regular rate Rhythm: regular rhythm Heart Sounds: S1 normal, S2 normal, no gallops and no murmurs GI Palpation: soft, no guarding and tender in the LLQ and in the RLQ; with no rebound tenderness Auscultation: normal bowel sounds Objective Objective Clinical Data: Abnormal lab results 02/03/18 02/03/18 Range/Units 06:15 16:00 Calcium 8.3 L (8.5-10.1) mg/dL Urine Protein 100 H (Negative) mg/dL Urine Blood Moderate H (Negative) Urine RBC 10-20 H (0-2) Vital Signs Temperature 36.7 C 02/04/18 06:55 Temperature Source Tympanic 02/04/18 06:55 Pulse 57 L 02/04/18 06:55 Pulse Rhythm Regular 02/03/18 23:35 Respiratory Rate 18 02/04/18 06:55 Respiratory Effort 02/03/18 23:35 Respiratory Depth Normal 02/03/18 23:35 Respiratory Pattern Normal 02/03/18 23:35 Blood Pressure 108/70 02/04/18 06:55 Blood Pressure Position Sitting 01/31/18 16:30 Pulse Oximetry 97 02/04/18 06:55 Oxygen Delivery Method Room Air 02/04/18 06:55 Oxygen Flow Rate 0 02/04/18 06:55 Pain Level 0 02/04/18 06:55 Comment 02/03/18 09:14 Intake & Output 02/03/18 02/03/18 02/04/18 11:59 23:59 11:59 Intake Total 810 / 810 200 / 200 200 / 200 Balance 810 / 810 200 / 200 200 / 200 Weight 76.6 kg Intake: IV 200 / 200 200 / 200 100 / 100 Oral 610 / 610 100 / 100 Other: Urine Appearance Clear Comment voided in toilet and flushed. pt independant to br, reports going frequently and not much at a time will put hat in toilet to measure voiding in toilet indep and flushing. Pt did get up one time during noc to void and did not just felt like he might have to void. Stool Size Small Voiding Methods Toilet Toilet Toilet Laboratory Results WBC 11.00 k/cumm (4.4-10.8) H 02/03/18 06:15 RBC 3.92 m/cumm (4.50-6.00) L 02/03/18 06:15 Hgb 12.0 g/dL (13.5-17.5) L 02/03/18 06:15 Hct 36.5 % (40.0-50.0) L 02/03/18 06:15 MCV 93.1 fL (80-95) 02/03/18 06:15 MCH 30.6 pg (27.0-33.0) 02/03/18 06:15 MCHC 32.9 g/dL (32.0-36.0) 02/03/18 06:15 RDW 11.6 % (11.8-14.1) L 02/03/18 06:15 Plt Count 287 x1000/uL (130-400) 02/03/18 06:15 MPV 10.5 fL (8.0-11.0) 02/03/18 06:15 Immature Gran % 0.2 02/03/18 06:15 Neutrophils % 75.9 02/03/18 06:15 Lymphocytes % 12.7 02/03/18 06:15 Monocytes % 9.1 02/03/18 06:15 Eosinophils % 2.0 02/03/18 06:15 Basophils % 0.1 02/03/18 06:15 Absolute Neutrophils 8.35 k/cumm (1.2-6.7) H 02/03/18 06:15 Absolute Lymphocytes 1.40 k/cumm (1.2-3.4) 02/03/18 06:15 Absolute Monocytes 1.00 k/cumm (0.11-0.7) H 02/03/18 06:15 Absolute Eosinophils 0.22 k/cumm (0.0-0.7) 02/03/18 06:15 Absolute Basophils 0.01 k/cumm (0.0-0.2) 02/03/18 06:15 Sodium 142 mmol/L (136-145) 02/03/18 06:15 Potassium 3.5 mmol/L (3.5-5.1) 02/03/18 06:15 Chloride 106 mmol/L (98-107) 02/03/18 06:15 Carbon Dioxide 27.9 mmol/L (21.0-32.0) 02/03/18 06:15 Anion Gap 8.1 mmol/L (3-11) 02/03/18 06:15 BUN 9 mg/dL (7-18) 02/03/18 06:15 Creatinine 0.87 mg/dL (0.70-1.30) 02/03/18 06:15 Estimated GFR/1.73 m2 >= 60.00 (mL/min/1.73m2) 02/03/18 06:15 Glucose 92 mg/dL (70-100) 02/03/18 06:15 Calcium 8.3 mg/dL (8.5-10.1) L 02/03/18 06:15 Total Bilirubin 0.5 mg/dL (0.2-1.0) 02/01/18 06:30 AST 15 U/L (15-37) 02/01/18 06:30 ALT 16 U/L (12-78) 02/01/18 06:30 Alkaline Phosphatase 57 U/L (46-116) 02/01/18 06:30 Total Protein 6.6 g/dL (6.4-8.2) 02/01/18 06:30 Albumin 2.5 g/dL (3.4-5.0) L 02/01/18 06:30 Lipase 83 U/L (73-393) 01/31/18 16:50 Urine Color Yellow (Yellow) 02/03/18 16:00 Urine Clarity Clear 02/03/18 16:00 Urine pH 7.0 (5-8) 02/03/18 16:00 Ur Specific [place] 1.020 (1.005-1.025) 02/03/18 16:00 Urine Protein 100 mg/dL (Negative) H 02/03/18 16:00 Urine Ketones Negative mg/dL (Negative) 02/03/18 16:00 Urine Blood Moderate (Negative) H 02/03/18 16:00 Urine Nitrite Negative (Negative) 02/03/18 16:00 Urine Bilirubin Negative (Negative) 02/03/18 16:00 Urine Urobilinogen >=8.0 EU/dL (Up TO 0.2) 02/03/18 16:00 Ur Leukocyte Esterase Negative (Negative) 02/03/18 16:00 Urine RBC 10-20 (0-2) H 02/03/18 16:00 Urine WBC 0-2 HPF (0-5) 02/03/18 16:00 Ur Epithelial Cells Negative HPF (Negative) 02/03/18 16:00 Urine Crystals Negative HPF (Negative) 02/03/18 16:00 Urine Bacteria Negative HPF (Negative) 02/03/18 16:00 Urine Casts Negative LPF (Negative) 02/03/18 16:00 Urine Mucus Negative (Negative) 02/03/18 16:00 Urine Other Negative (Negative) 02/03/18 16:00 Ur Culture Indicated? No 02/03/18 16:00 Urine Glucose Negative mg/dL (Negative) 02/03/18 16:00
[2018-02-04 07:42] LABS: ALT 23 U/L (12-78); AST 31 U/L (15-37); Albumin 2.4 g/dL (3.4-5.0); Alkaline Phosphatase 51 U/L (46-116); Anion Gap 8.3 mmol/L (3-11); BUN 8 mg/dL (7-18); Bilirubin, Total 0.4 mg/dL (0.2-1.0); CO2 28.7 mmol/L (21.0-32.0); CREATININE 0.88 mg/dL (0.70-1.30); Calcium 8.4 mg/dL (8.5-10.1); Chloride 105 mmol/L (98-107); Glucose 90 mg/dL (70-100); Potassium 3.5 mmol/L (3.5-5.1); Sodium 142 mmol/L (136-145); Total Protein 6.6 g/dL (6.4-8.2)
--- NOTE | 2018-02-04 09:06 | PDOC.CMPRO ---
Care Management Progress Note S/O: Manuel reported sleeping better but has continued pain, his was at his bedside when CM entered the room. He continues on IV ABX; and is being closely monitored. CM will continue to follow. A: 47 year old male admitted to [facility] 02/01/18 with Diverticulitis with Abscess P: Manuel is receiving IV antibiotics, Toradol, and Tylenol IV. He will be discharged home when medically ready per provider. No anticipated services at time of discharge.
[2018-02-04] MEDS: Pantoprazole 40 MG TABCR PO (09:10)
[2018-02-04 11:00] VITALS: BP 111/68; PULSE 61; RESP 18; TEMP 37; O2SAT 97
[2018-02-04] MEDS: Enoxaparin 40 MG/0.4 ML SYR SC (14:40)
[2018-02-04 15:53] VITALS: BP 116/74; PULSE 64; RESP 20; TEMP 37.5; O2SAT 94
[2018-02-04] MEDS: PIPERACILLIN/TAZO 4.5 GM in Normal Saline 100 ML IVPB (19:45)
[2018-02-04] MEDS: Melatonin 3 MG TAB PO (21:03)
[2018-02-04] MEDS: Ketorolac 30 MG/ML VIAL IV (21:03)
[2018-02-05] MEDS: PIPERACILLIN/TAZO 4.5 GM in Normal Saline 100 ML IVPB ×3 (01:55→14:17)
[2018-02-05] MEDS: Normal Saline 500 ML 200 ML IV (01:56)
[2018-02-05] MEDS: Normal Saline Flush 10 ML SYR IVP ×3 (01:56→14:17)
[2018-02-05 02:00] VITALS: BP 108/68; PULSE 48; RESP 18; TEMP 36.3; O2SAT 94
[2018-02-05 07:15] VITALS: BP 121/75; PULSE 57; RESP 18; TEMP 36.7; O2SAT 98
[2018-02-05 07:50] LABS: Abs Immature Grans 0.02 k/cumm (0.0-0.09); Absolute Basophil Count 0.02 k/cumm (0.0-0.2); Absolute Eosinophil Count 0.34 k/cumm (0.0-0.7); Absolute Lymphocyte Count 1.48 k/cumm (1.2-3.4); Absolute Monocyte Count 0.72 k/cumm (0.11-0.7); Absolute Neutrophil Count 5.86 k/cumm (1.2-6.7); Basophils % 0.2; HCT 36.6 % (40.0-50.0); Immature Grans % 0.2; Lymphocytes % 17.5; Mean Corp. HGB Concentration 32.8 g/dL (32.0-36.0); Mean Corpuscular Hemoglobin 30.6 pg (27.0-33.0); Mean Corpuscular Volume 93.4 fL (80-95); Mean Platelet Volume 9.1 fL (8.0-11.0); Monocytes % 8.5; Neutrophils % 69.6; Platelet Count 326 x1000/uL (130-400); RBC 3.92 m/cumm (4.50-6.00); RBC Distribution Width 11.7 % (11.8-14.1); White Blood Cell Count 8.44 k/cumm (4.4-10.8)
[2018-02-05 07:59] LABS: Anion Gap 8.5 mmol/L (3-11); BUN 6 mg/dL (7-18); CO2 30.5 mmol/L (21.0-32.0); CREATININE 0.92 mg/dL (0.70-1.30); Calcium 8.8 mg/dL (8.5-10.1); Chloride 104 mmol/L (98-107); Glucose 93 mg/dL (70-100); Magnesium 1.9 mg/dL (1.8-2.4); Potassium 3.4 mmol/L (3.5-5.1); Sodium 143 mmol/L (136-145)
[2018-02-05] MEDS: Pantoprazole 40 MG TABCR PO (08:05)
--- NOTE | 2018-02-05 09:36 | PGE_ITS ---
Documented by User: MELLISA Calle 02/05/18 09:41 Assessment and Plan (1) Diverticulitis of intestine with abscess without bleeding: Current visit: Yes Status: Acute A\\ Diverticulitis of sigmoid colon with 3 cm abscess. Lower abdominal pain has reduced. (+) BMs over night. Afebrile over night. WBC count is trending down. P\\ 1. Diverticulitis: Continue Iv Abx. Recheck Labs in am. If WBC count increased then repeat CT scan with Iv/oral contrast for increase in size of abscess. May need possible drainage procedure. 2. Activity: up and ambulating tid 3. DVT prophylaxis: Lovenox 40 mg SQ daily and SCD's while in bed 4. Nutrition: Will progress to soft diet today 5. Pain Control: Continue with Toradol IV. Tylenol po. Also has dilauded if needed. Subjective Interval history since last seen: Mr. Santana reports that he is feeling much better. He states that he continues to have mild lower crampy abdominal pain that is much improved compared to when he was first admitted. He reports that last evening and this morning he has been having loose, brown stools. Tolerating clear liquids well with no change in his abdominal pain. Denies nause , vomiting, fevers or chills. Exam Const General: cooperative, comfortable and no acute distress Orientation: alert and oriented x3 Resp Effort & Inspection: normal respiratory effort Auscultation: clear to auscultation bilaterally and no wheezes Cardio Rate: regular rate Rhythm: regular rhythm Heart Sounds: S1 normal, S2 normal, no gallops and no murmurs GI Palpation: soft, no guarding and tender in the LLQ and in the RLQ; with no rebound tenderness Auscultation: normal bowel sounds Objective Objective Clinical Data: Abnormal lab results 02/05/18 02/05/18 Range/Units 07:45 07:45 RBC 3.92 L (4.50-6.00) m/cumm Hgb 12.0 L (13.5-17.5) g/dL Hct 36.6 L (40.0-50.0) % RDW 11.7 L (11.8-14.1) % Absolute Monocytes 0.72 H (0.11-0.7) k/cumm Potassium 3.4 L (3.5-5.1) mmol/L BUN 6 L (7-18) mg/dL Vital Signs Temperature 36.7 C 02/05/18 07:15 Temperature Source Tympanic 02/05/18 07:15 Pulse 57 L 02/05/18 07:15 Pulse Rhythm Regular 02/05/18 02:00 Respiratory Rate 18 02/05/18 07:15 Respiratory Effort Non-Labored 02/05/18 02:00 Respiratory Depth Normal 02/05/18 02:00 Respiratory Pattern Normal 02/05/18 02:00 Blood Pressure 121/75 02/05/18 07:15 Blood Pressure Position Sitting 01/31/18 16:30 Pulse Oximetry 98 02/05/18 07:15 Oxygen Delivery Method Room Air 02/05/18 07:15 Oxygen Flow Rate 0 02/05/18 07:15 Pain Level 0 02/05/18 02:00 Comment 02/05/18 07:15 Intake & Output 02/04/18 02/04/18 02/05/18 11:59 23:59 11:59 Intake Total 960 / 960 480 / 480 130 / 130 Output Total 150 / 150 Balance 960 / 960 330 / 330 130 / 130 Weight 75.2 kg Intake: IV 210 / 210 130 / 130 Oral 750 / 750 480 / 480 Output: Urine 150 / 150 Other: Urine Color Yellow Urine Appearance Clear Comment pt noted to void x 2 so far this shift pt state he passed urine in the bathroom Stool Size Small Stool Characteristics Liquid Voiding Methods Toilet Urinal Toilet Laboratory Results WBC 8.44 k/cumm (4.4-10.8) 02/05/18 07:45 RBC 3.92 m/cumm (4.50-6.00) L 02/05/18 07:45 Hgb 12.0 g/dL (13.5-17.5) L 02/05/18 07:45 Hct 36.6 % (40.0-50.0) L 02/05/18 07:45 MCV 93.4 fL (80-95) 02/05/18 07:45 MCH 30.6 pg (27.0-33.0) 02/05/18 07:45 MCHC 32.8 g/dL (32.0-36.0) 02/05/18 07:45 RDW 11.7 % (11.8-14.1) L 02/05/18 07:45 Plt Count 326 x1000/uL (130-400) 02/05/18 07:45 MPV 9.1 fL (8.0-11.0) 02/05/18 07:45 Immature Gran % 0.2 02/05/18 07:45 Neutrophils % 69.6 02/05/18 07:45 Lymphocytes % 17.5 02/05/18 07:45 Monocytes % 8.5 02/05/18 07:45 Eosinophils % 4.0 02/05/18 07:45 Basophils % 0.2 02/05/18 07:45 Absolute Neutrophils 5.86 k/cumm (1.2-6.7) 02/05/18 07:45 Absolute Lymphocytes 1.48 k/cumm (1.2-3.4) 02/05/18 07:45 Absolute Monocytes 0.72 k/cumm (0.11-0.7) H 02/05/18 07:45 Absolute Eosinophils 0.34 k/cumm (0.0-0.7) 02/05/18 07:45 Absolute Basophils 0.02 k/cumm (0.0-0.2) 02/05/18 07:45 Sodium 143 mmol/L (136-145) 02/05/18 07:45 Potassium 3.4 mmol/L (3.5-5.1) L 02/05/18 07:45 Chloride 104 mmol/L (98-107) 02/05/18 07:45 Carbon Dioxide 30.5 mmol/L (21.0-32.0) 02/05/18 07:45 Anion Gap 8.5 mmol/L (3-11) 02/05/18 07:45 BUN 6 mg/dL (7-18) L 02/05/18 07:45 Creatinine 0.92 mg/dL (0.70-1.30) 02/05/18 07:45 Estimated GFR/1.73 m2 >= 60.00 (mL/min/1.73m2) 02/05/18 07:45 Glucose 93 mg/dL (70-100) 02/05/18 07:45 Calcium 8.8 mg/dL (8.5-10.1) 02/05/18 07:45 Magnesium 1.9 mg/dL (1.8-2.4) 02/05/18 07:45 Total Bilirubin 0.4 mg/dL (0.2-1.0) 02/04/18 06:22 AST 31 U/L (15-37) 02/04/18 06:22 ALT 23 U/L (12-78) 02/04/18 06:22 Alkaline Phosphatase 51 U/L (46-116) 02/04/18 06:22 Total Protein 6.6 g/dL (6.4-8.2) 02/04/18 06:22 Albumin 2.4 g/dL (3.4-5.0) L 02/04/18 06:22 Lipase 83 U/L (73-393) 01/31/18 16:50 Urine Color Yellow (Yellow) 02/03/18 16:00 Urine Clarity Clear 02/03/18 16:00 Urine pH 7.0 (5-8) 02/03/18 16:00 Ur Specific [place] 1.020 (1.005-1.025) 02/03/18 16:00 Urine Protein 100 mg/dL (Negative) H 02/03/18 16:00 Urine Ketones Negative mg/dL (Negative) 02/03/18 16:00 Urine Blood Moderate (Negative) H 02/03/18 16:00 Urine Nitrite Negative (Negative) 02/03/18 16:00 Urine Bilirubin Negative (Negative) 02/03/18 16:00 Urine Urobilinogen >=8.0 EU/dL (Up TO 0.2) 02/03/18 16:00 Ur Leukocyte Esterase Negative (Negative) 02/03/18 16:00 Urine RBC 10-20 (0-2) H 02/03/18 16:00 Urine WBC 0-2 HPF (0-5) 02/03/18 16:00 Ur Epithelial Cells Negative HPF (Negative) 02/03/18 16:00 Urine Crystals Negative HPF (Negative) 02/03/18 16:00 Urine Bacteria Negative HPF (Negative) 02/03/18 16:00 Urine Casts Negative LPF (Negative) 02/03/18 16:00 Urine Mucus Negative (Negative) 02/03/18 16:00 Urine Other Negative (Negative) 02/03/18 16:00 Ur Culture Indicated? No 02/03/18 16:00 Urine Glucose Negative mg/dL (Negative) 02/03/18 16:00
--- NOTE | 2018-02-05 11:22 | CMPROGNOTE_ITS ---
- If Service Date Differs Date of service: 02/05/18 Time of Service: 11:21 Care Management Progress Note S/O:Manuel is sitting up in the bed he has just finished his lunch and at this point has tolerating it. Anticipate that he will be discharged home on Friday on oral antibiotics. A: 47 year old male admitted to [facility] 02/01/18 with Diverticulitis with Abscess P: Manuel is receiving IV antibiotics, Toradol, and Tylenol IV. He will be discharged home when medically ready per provider. No anticipated services at time of discharge.
[2018-02-05] MEDS: Enoxaparin 40 MG/0.4 ML SYR SC (13:46)
[2018-02-05 13:50] VITALS: BP 119/76; PULSE 75; RESP 20; TEMP 36.9; O2SAT 96
--- NOTE | 2018-02-05 15:00 | W.PM.DS.N ---
Date of service: 02/05/18 Time of Service: 15:01 DS: Diagnosis Discharge Diagnosis (1) Diverticulitis of intestine with abscess without bleeding: Status: Acute (2) Diverticulitis of large intestine with abscess: Status: Acute Discharge Plan Disposition Patient Disposition: HOME Condition: Stable Discharge Details Chief Complaint: Abd Prob Reason For Visit: DIVERTICULITIS WITH ABSCESS Admit Date/Time: 02/01/18 12:23 Admit Provider: Diane House Attending Provider: Diane House Primary Care Provider: Shubham Tabor ED Provider: Blas Francis Hospital Course Hospital Course: HPI: Mr. Santana is a pleasant 47 year old male who came to the ER yesterday with 1 week of painful constipation. CT scan showed complicated diverticulitis with a 3 cm abscess. On talking to him he tells me that he has not felt right since June. In June he had a bout of painful constipation. He was seen at his PCP's and treated for constipation. He then had 2 more milder episodes of pain. One week ago his pain got acutely worse and he was seen on at his PCP office. He was started on Cipro for presumed diverticulitis as well as given a medication for his prostate. He states that he is having dysuria and urinary frequency. His pain is located in the LLQ and suprapubic area. His pain is about the same as last night. The toradol and tylenol have been keeping him comfortable. He did have some Morphine that caused him to have chest tightness. He has never had a colonoscopy. He also tells me that since june his BM's have not been normal. He used to go to the bathroom daily and the BM's were soft. He doesn't usually have constipation. His mother has had diverticulitis. Hospital Course: Patient was admitted for conservative therapy of perforated diverticulitis with abscess. He was continued on IV antibiotics. Consideration was given to percutaneous drainage of the abscess; given its size of the abscess, the plan was for trial of antibiotic therapy only without drainage, then attempt drainage if antibiotic therapy alone was not successful. His hospital course was fairly unremarkable except that he did spike a fever hospital day 2 up to 38.1 ?C. At that time he had been progressing well, but started to feel worse once his diet had been advanced to a regular diet. He is put back on a clear liquid diet, and appropriate studies were obtained for the fever workup which have been negative to date. After 24 hours of being afebrile, and was steady improvement in his pain profile, his diet was advanced which he tolerated without complications. As he was tolerating a soft diet without nausea or vomiting, had had no pain medication for 24 hours, and no narcotics for 72 hours, along with being afebrile for 48 hours, the decision was made to discharge home on oral antibiotics. He was afebrile, tolerating soft diet, pain resolved, ambulating at baseline at the time of discharge. Plan: If he does well with conservative outpatient management of his diverticulitis, the plan will be for outpatient colonoscopy in 6-8 weeks to rule out occult malignancy. Home Meds and New Rx's Prescriptions: New amoxicillin-pot clavulanate 875-125 mg tablet 1 tab PO BID Qty: 20 RF: 0 Discharge Instructions Instructions: Diverticulitis (GEN), Soft Diet (DC), Soft Diet (GEN) Stand Alone Forms: Nursing Discharge Form Referrals: Diane House MD [ [facility] STAFF PHYSICIAN] - 02/13/18 2:00 pm (Follow up after hospitalization for diverticulitis with abscess) Activity:: Activity as Tolerated Equipment/Supplies:: No Equipment Needed Diet:: disgestive soft Discharge Orders Discharge Orders: Discharge Order (Routine); Ordered 02/05/18 Ordered By: Huey Pizano DS: Summary Status at Discharge Functional status at discharge: independent ambulation Overall status at discharge: patient is progressing back to baseline Time Spent with Patient Less than 30 minutes Exam Const General: cooperative, healthy appearing, comfortable and no acute distress Nutritional Appearance: average body habitus Orientation: alert, awake and oriented x3 HENMT Head: normal to inspection, normocephalic and atraumatic Ears: hearing grossly normal bilaterally General nose exam: external nose normal Face and sinus: normal facial exam Mouth: oral mucosae normal Eyes Periorbital: periorbital findings normal Conjunctivae: conjunctivae normal Sclera: sclerae normal Pupils: PERRL EOM: EOM intact bilaterally Neck Neck: normal visual inspection, trachea midline and supple Resp Effort & Inspection: normal respiratory effort, no audible wheezes and not labored Auscultation: clear to auscultation bilaterally Cardio Jugular venous pressure: no JVD Rate: regular rate Rhythm: regular rhythm GI Inspection: non-distended Palpation: soft, not firm, no guarding and nontender Rectal Exam: deferred Skin General skin exam: no rashes or lesions noted and turgor normal Neuro General: moves all extremities, no focal motor deficits and CN's II-XI intact bilaterally Extrem General: normal capillary refill and no clubbing, cyanosis or edema Psych Appearance: grossly normal and well kempt Mental Status: mental status grossly normal Affect: normal affect Attitude: cooperative Judgment: judgment good DS: Data Vitals/I&O Vitals and I&O: Vital Signs Temperature 36.9 C 02/05/18 13:50 Temperature Source Tympanic 02/05/18 13:50 Pulse 75 02/05/18 13:50 Pulse Rhythm Regular 02/05/18 02:00 Respiratory Rate 20 02/05/18 13:50 Respiratory Effort Non-Labored 02/05/18 02:00 Respiratory Depth Normal 02/05/18 02:00 Respiratory Pattern Normal 02/05/18 02:00 Blood Pressure 119/76 02/05/18 13:50 Blood Pressure Position Sitting 01/31/18 16:30 Pulse Oximetry 96 02/05/18 13:50 Oxygen Delivery Method Room Air 02/05/18 13:50 Oxygen Flow Rate 0 02/05/18 13:50 Pain Level 0 02/05/18 02:00 Comment 02/05/18 07:15 Intake & Output 02/04/18 02/05/18 02/05/18 18:59 06:59 18:59 Intake Total 860 / 860 610 / 610 460 / 460 Output Total 150 / 150 Balance 860 / 860 460 / 460 460 / 460 Weight 75.2 kg Intake: IV 110 / 110 130 / 130 100 / 100 Oral 750 / 750 480 / 480 360 / 360 Output: Urine 150 / 150 Other: Urine Color Yellow Yellow Urine Appearance Clear Clear Comment pt noted to void x 2 so far this shift pt state he passed urine in the bathroom voiding indep in BR Stool Size Small Stool Characteristics Liquid Voiding Methods Toilet Toilet Toilet Labs on day of discharge: Labs from last 24 hours 02/05/18 02/05/18 07:45 07:45 WBC 8.44 RBC 3.92 L Hgb 12.0 L Hct 36.6 L MCV 93.4 MCH 30.6 MCHC 32.8 RDW 11.7 L Plt Count 326 MPV 9.1 Immature Gran % 0.2 Neutrophils % 69.6 Lymphocytes % 17.5 Monocytes % 8.5 Eosinophils % 4.0 Basophils % 0.2 Absolute Neutrophils 5.86 Absolute Lymphocytes 1.48 Absolute Monocytes 0.72 H Absolute Eosinophils 0.34 Absolute Basophils 0.02 Sodium 143 Potassium 3.4 L Chloride 104 Carbon Dioxide 30.5 Anion Gap 8.5 BUN 6 L Creatinine 0.92 Estimated GFR/1.73 m2 >= 60.00 Glucose 93 Calcium 8.8 Magnesium 1.9 Preliminary micro results at discharge 02/03/18 14:38 Blood Culture - Preliminary Blood NO GROWTH 24 HOURS 02/03/18 14:30 Blood Culture - Preliminary Blood NO GROWTH [address] abdomen & pelvis w SYMPTOMS/DIAGNOSIS: LEFT LOWER ABDOMINAL PAIN ABDOMINAL AND PELVIC CT: CT examination of the abdomen and pelvis was performed with a bolus infusion of 100 cc of Omnipaque 350. Images obtained through the lung bases are unremarkable. The liver, spleen and pancreas appear normal. Gallbladder and bile ducts are CT normal. Adrenals and kidneys appear normal. Abdominal aorta is of normal diameter and no major vascular abnormality is seen. No significant abdominal wall hernia is seen. No significant abdominal or pelvic adenopathy is seen. Appendix appears normal. There is marked wall thickening of the sigmoid colon with very prominent pericolonic fat edema and some small quantities of free fluid in the pelvis. There is an intramural irregular fluid collection measuring up to about 5 x 3 cm in diameter on transaxial imaging consistent with an intramural abscess. No free air identified. CONCLUSION: Severe diverticulitis with presumed intramural abscess as described above.
== END 2018-02-05 17:03 | disposition home or self-care (01) | DRG 392 ==
LOC: ER 18:59 → MS 19:16
PROVIDERS: Admitting Provider Surgery; Emergency Provider Emergency Medicine; PCP Internal Medicine; Visit Provider Surgery
DX: K57.20 Diverticulitis of large intestine with perforation and abscess without bleeding (principal); R30.0 Dysuria
CPT/HCPCS: 36410; 36415; 80048; 80053; 83690; 87040; 96361; 96374; 99223; 99231; 99232; 99233; 99238; 99285; J1650; NC; 74177; 81003; 81015; 83735; 85025; 99284; G0378; J0131; J1885; J2543; J3490

== ENCOUNTER 2018-02-06 15:37 | Inpatient (IN) | payer BC, SELFPAY ==
[2018-02-06] VITALS (9 sets, daily range): BP systolic 97–120; BP diastolic 54–81; PULSE 62–121; RESP 16–20; TEMP 37–38.4; O2SAT 94–96
--- NOTE | 2018-02-06 16:07 | W.ED.GENAD ---
Discharge Plan Disposition Patient Disposition: [facility] INPATIENT Condition: Poor Discharge Details Chief Complaint: Fever Clinical Impression: Diverticulitis of large intestine with abscess Reason For Visit: DIVERTICULITIS WITH ABCESS Admit Date/Time: 02/06/18 17:19 Admit Provider: Huey Pizano Attending Provider: Huey Pizano Primary Care Provider: Shubham Tabor ED Provider: Suri Hewitt Discharge Data Discharge Date/Time-TO BE ENTERED AT DEPARTURE: 02/06/18 18:32 Medical Decision Making Patient is a 47-year-old male presenting today, accompanied by his , with chief complaint of fever. Patient was discharged from the hospital yesterday after being treated inpatient for complicated diverticulitis with abscess formation. Patient reports that his abdominal pain began approximately 2 weeks ago. No chronic medical problems that he is aware of. At th e time patient was admitted last week, imaging was concerning for a comp gated diverticulitis with a 3 cm abscess. At the time of discharge, patient had been afebrile for 48 hours, not required narcotics for 72 hours and had not had any nausea vomiting times 24 hours. He denies any nausea or vomiting since the time of discharge. States that he awoke this morning feeling weak which was new since yesterday. Reports depression 45 minutes to arrival he began having Reiger's with T-max of 102 ?F at home. Has not taken anything as of yet for his fever. On exam, he had mild discomfort in the left lower quadrant. Actually reported that he was not having any abdominal discomfort. Has been having soft bowel movements times 3 days. Reports is been taking his antibiotics as prescribed. Time of arrival, patient is febrile with a temp of 38.4. Pulse is 120. Will [address] IV, give Tylenol, hydrate the patient and obtain baseline labs. Plan to consult with Dr. Toribio who discharged the patient yesterday. Patient is also endorsing feeling of post void residual since the onset of his symptoms. I did perform a rectal exam as his primary had been concerned for possible prostate involvement. Patient is not having any prostate tenderness. No abnormalities palpated. Heme-negative stool. Will obtain postvoid residual Spoke with Dr. Toribio who also advised repeat imaging with IV contrast. Discussed this plan with the patient who is in agreement. Will also obtain repeat blood cultures. He advised beginning patient on IV Zosyn after obtaining cultures. Laboratory evaluation significant for hypokalemia with potassium of 2.9, will give oral and IV potassium. Patient will remain on monitor. Will obtain EKG. patient received 40 mg p.o. and 10 thus far IV. Lactate 1.0 AST and ALT are also noted to be elevated. Is not been elevated yesterday at the time of discharge EKG performed by my nursing staff, reviewed by Dr. Mills with no acute abnormalities noted, no U waves noted. No ischemic changes Postvoid residual was 0 Was contacted by the radiologist who advised the patient has diverticulitis. They note that the patient's inferior intramural abscess has reduced in size. However, they do notice a small section of abscess between the bladder and colon measuring 2.2 x 1.2 x 2.3 cm. Advised this appears contained against the bladder. No free air noted. We did discuss possible need for IR drainage in the radiologist is concerned that it due to the location this would be quite difficult and that it may need to be performed through the bladder. She has no tiny amount of pelvic free fluid. Enlargement of the prostate noted. He also notes thickening of the bladder wall but feels that this likely associated with the above-noted infection. Contacted Dr. Pizano once again. We discussed the findings of the CT as well as laboratory evaluation. He advised admission for continued IV antibiotics. Does not feel the IR drainage is appropriate at this time given the size of the abscess. He is asked that I place holding orders. We discussed the patient's hyperkalemia and ongoing replenishment as you well as continue antibiotics. Discussed this plan with the patient and his . He voiced understanding and agreement. Patient will be admitted to medical surgical unit. HPI General Mode of arrival: ambulatory. Date/Time Provider Initiated Documentation: 02/06/18 15:42. Limitations to Documentation: no limitations. Information obtained by: patient and family. History of Present Illness 47 year old M presents to the emergency department with the chief complaint of fever, described as mild, with intensity rated at 1 (denies pain at this time). and is localized to the abdomen (reports he had been having LLQ pain and pain around areas of injection of Lovenox). Patient reports no radiation. Patient started experiencing this day(s) (1) and it has been constant. No relieving factors improve symptom(s), No exacerbating factors reported . Patient notes fever/chills, loss of appetite and malaise; denies chest pain, cough, headaches, nausea/vomiting, rash and shortness of breath. Patient did receive the following treatments prior to arrival, other (has been taking antibiotics as prescribed) Related Data Home Medications Medication Instructions Recorded Confirmed amoxicillin-pot clavulanate 1 tab PO BID #20 tab 02/05/18 02/06/18 Previous Rx's Medication Instructions Recorded amoxicillin-pot clavulanate 1 tab PO BID #20 tab 02/05/18 Allergies Allergy/AdvReac Type Severity Reaction Status Date / Time morphine AdvReac Mild chest Verified 02/06/18 15:49 tighteness General Stated Complaint: Fever CESAR: 2 Review of Systems Constitutional Reports as per HPI, Reports chills, Reports fatigue, Reports fever(s), Denies headache(s), Reports malaise, Reports poor appetite and Reports weakness Eyes Denies change in vision ENT Denies headache(s) Cardiovascular Denies chest pain, Denies dyspnea and Denies dyspnea on exertion Respiratory Denies cough, Denies dyspnea and Denies dyspnea on exertion Gastrointestinal Reports as per HPI, Reports abdominal pain (improving LLQ pain), Denies melena, Reports change in bowel habits (states he has had soft BM x 3 days, one episode today), Denies constipation, Reports loose stools, Denies nausea and Denies vomiting Genitourinary Reports as per HPI (patient reports that he feels that he has post void residual, this sensation has been present since onset of symptoms), Denies dysuria, Denies flank pain, Denies penile discharge, Denies scrotal swelling, Denies testicular pain, Denies urinary frequency, Denies urinary hesitancy and Denies urinary urgency Musculoskeletal Denies back pain Integumentary/Breasts Denies rash and Reports other (patient has areas of ecchymosis over his abdomen which he relates to Lovenox injections) Neurologic Denies headache(s) and Reports weakness Endocrine Reports fatigue Exam Const General: cooperative, comfortable, no acute distress, well developed, well groomed and other (patient appears fatigued) Nutritional Appearance: average body habitus and well nourished Orientation: alert and awake [facility] Mouth: mucous membranes dry (patient appears dry) Resp Effort & Inspection: normal respiratory effort, able to speak in complete sentences and no respiratory distress Auscultation: clear to auscultation bilaterally, no rales, no rhonchi and no wheezes Cardio Rate: regular rate Rhythm: regular rhythm Heart Sounds: S1 normal and S2 normal GI Inspection: normal to inspection, abdominal wall ecchymosis (small areas of ecchymosis consistent with Lovenox injection), no edema, non-distended, no incisions and no visible herniation Palpation: soft, no hepatosplenomegaly, not firm, no guarding, no hernias, no masses, not rigid, tender in the LLQ (mild tenderness with palpation); with no rebound tenderness and No ascites Auscultation: normal bowel sounds Rectal Exam: visual inspection normal, normal sphincter tone, prostate normal, heme negative stool, No hemorrhoids and No tenderness Back/Spine/Pelvis Back: no CVA tenderness Skin General skin exam: no rashes or lesions noted and ecchymosis (as above) Neuro General: alert and awake Cognition: normal cognition Speech: speech normal Gait: normal gait Psych Appearance: grossly normal and well kempt Mental Status: mental status grossly normal Speech and Movement: speech and movement normal Mood: congruent mood Course Vital Signs Temperature 38.4 C H 02/06/18 15:42 Pulse 121 H 02/06/18 15:42 Respiratory Rate 20 02/06/18 15:42 Blood Pressure 120/81 02/06/18 15:42 Pulse Oximetry 96 02/06/18 15:42 Temperature 38.4 C H 02/06/18 15:42 Temperature Source Oral 02/06/18 15:42 Pulse 121 H 02/06/18 15:42 Respiratory Rate 20 02/06/18 15:42 Respiratory Effort 02/06/18 15:45 Blood Pressure 120/81 02/06/18 15:42 Blood Pressure Position Sitting 02/06/18 15:42 Pulse Oximetry 96 02/06/18 15:42 Oxygen Delivery Method Room Air 02/06/18 15:42 Oxygen Flow Rate 0 02/06/18 15:42 Pain Level 0 02/06/18 15:42
--- NOTE | 2018-02-06 16:09 | DI.CT_ITS ---
SYMPTOM/DIAGNOSIS: LLQ PAIN ABDOMEN AND PELVIC CT: Comparison is made with 01/31/18. Images were performed from the lung bases through the ischial tuberosities after IV and without oral contrast. The exam is mildly limited by patient motion in the mid to lower portion of the scan. Again noted is severe sigmoid diverticulitis. There is a residual abscess seen between the sigmoid colon and superior aspect of the bladder. The intramural component of the abscess shows significant improvement. There is no free fluid. There is no bowel dilatation. There is again noted to be marked thickening of the superior aspect of the bladder, adjacent to the abscess. IMPRESSION: Interval improvement in intramural abscess of the sigmoid colon. A small abscess is seen between the sigmoid colon and roof of the bladder measuring 2.5 by 3 by 3.2 cm.
[2018-02-06] MEDS: Acetaminophen 500 MG TAB 1000 MG PO (16:32)
[2018-02-06 16:34] LABS: Abs Immature Grans 0.04 k/cumm (0.0-0.09); Absolute Basophil Count 0.02 k/cumm (0.0-0.2); Absolute Eosinophil Count 0.15 k/cumm (0.0-0.7); Absolute Lymphocyte Count 0.56 k/cumm (1.2-3.4); Absolute Monocyte Count 0.37 k/cumm (0.11-0.7); Absolute Neutrophil Count 8.25 k/cumm (1.2-6.7); Basophils % 0.2; Eosinophils % 1.6; HCT 40.6 % (40.0-50.0); HGB 13.6 g/dL (13.5-17.5); Immature Grans % 0.4; Mean Corp. HGB Concentration 33.5 g/dL (32.0-36.0); Mean Corpuscular Hemoglobin 30.6 pg (27.0-33.0); Mean Corpuscular Volume 91.4 fL (80-95); Mean Platelet Volume 9.4 fL (8.0-11.0); Monocytes % 3.9; Neutrophils % 87.9; Platelet Count 318 x1000/uL (130-400); RBC 4.44 m/cumm (4.50-6.00); RBC Distribution Width 11.9 % (11.8-14.1); White Blood Cell Count 9.39 k/cumm (4.4-10.8)
[2018-02-06 16:35] LABS: Lactate-non-spesis 1.1 mmol/L (0.6-1.4)
[2018-02-06] MEDS: Omnipaque 350 MG/ML 100 ML BTL IJ (16:44)
[2018-02-06 16:54] LABS: ALT 111 U/L (12-78); AST 126 U/L (15-37); Albumin 2.8 g/dL (3.4-5.0); Alkaline Phosphatase 59 U/L (46-116); Anion Gap 11.3 mmol/L (3-11); BUN 5 mg/dL (7-18); Bilirubin, Total 0.4 mg/dL (0.2-1.0); CO2 29.7 mmol/L (21.0-32.0); CREATININE 0.95 mg/dL (0.70-1.30); Calcium 8.9 mg/dL (8.5-10.1); Chloride 102 mmol/L (98-107); Glucose 111 mg/dL (70-100); Lipase 97 U/L (73-393); Sodium 143 mmol/L (136-145); Total Protein 7.7 g/dL (6.4-8.2)
--- NOTE | 2018-02-06 17:00 | DI.VRAD_ITS ---
EXAM: CT Abdomen and Pelvis With Intravenous Contrast EXAM DATE/TIME: 02/06/2018 4:11 PM CLINICAL HISTORY: 47 years old, male; Pain; Other: Llq pain TECHNIQUE: Axial computed tomography images of the abdomen and pelvis with intravenous contrast. Coronal and sagittal reformatted images were created and reviewed. COMPARISON: CT ABDOMEN PELVIS W 01/31/2018 5:08 PM FINDINGS: Marked inflammatory process of the proximal sigmoid colon of with surrounding fatty infiltration consistent with diverticulitis. There is decreased density along the inferior wall of the sigmoid colon suggesting an intramural abscess. No other definite abscess formation or significant extraluminal air. Small air collection in the subcutaneous fat of the anterior right lower abdominal wall most likely related to an injection. No evidence of bowel obstruction. No obstructive uropathy. Tiny amount of pelvic free fluid. Enlargement of the prostate gland with thickening of the urinary bladder wall some of this thickening may be secondary reaction to the sigmoid colon inflammation. Suggestion of prior TURP. IMPRESSION: 1. Prominent diverticulitis of the sigmoid colon with what appears to be a prominent intramural abscess without evidence of perforation. Continued close followup is recommended. 2. Additional incidental findings as described. Dictated and Authenticated by: Rigo Paulino MD. Ordering:NANDO DIEZ MD
[2018-02-06] MEDS: Normal Saline 1,000 ML 1000 ML IV (17:06)
[2018-02-06] MEDS: PIPERACILLIN/TAZO 3.375 GM in Normal Saline 50 ML IVPB (17:07)
[2018-02-06 17:10] LABS: Potassium 2.9 mmol/L (3.5-5.1)
[2018-02-06] MEDS: POTASSIUM CHLORIDE 10 MEQ/100 ML BAG 100 MEQ IVPB (17:57)
[2018-02-06] MEDS: Potassium Chloride 20 MEQ TABCR 40 MEQ PO (17:58)
--- NOTE | 2018-02-06 18:23 | ED.GENADUL_ITS ---
Discharge Plan Disposition Patient Disposition: [facility] INPATIENT Condition: Poor Discharge Details Chief Complaint: Fever Clinical Impression: Diverticulitis of large intestine with abscess Reason For Visit: DIVERTICULITIS WITH ABCESS Admit Date/Time: 02/06/18 17:19 Admit Provider: Huey Pizano Attending Provider: Huey Pizano Primary Care Provider: Shubham Tabor ED Provider: Suri Hewitt Discharge Data Discharge Date/Time-TO BE ENTERED AT DEPARTURE: 02/06/18 18:32 Medical Decision Making Patient is a 47-year-old male presenting today, accompanied by his , with chief complaint of fever. Patient was discharged from the hospital yesterday after being treated inpatient for complicated diverticulitis with abscess formation. Patient reports that his abdominal pain began approximately 2 weeks ago. No chronic medical problems that he is aware of. At th e time patient was admitted last week, imaging was concerning for a comp gated diverticulitis with a 3 cm abscess. At the time of discharge, patient had been afebrile for 48 hours, not required narcotics for 72 hours and had not had any nausea vomiting times 24 hours. He denies any nausea or vomiting since the time of discharge. States that he awoke this morning feeling weak which was new since yesterday. Reports depression 45 minutes to arrival he began having Reiger's with T-max of 102 ?F at home. Has not taken anything as of yet for his fever. On exam, he had mild discomfort in the left lower quadrant. Actually reported that he was not having any abdominal discomfort. Has been having soft bowel movements times 3 days. Reports is been taking his antibiotics as prescribed. Time of arrival, patient is febrile with a temp of 38.4. Pulse is 120. Will place IV, give Tylenol, hydrate the patient and obtain baseline labs. Plan to consult with Dr. Toribio who discharged the patient yesterday. Patient is also endorsing feeling of post void residual since the onset of his symptoms. I did perform a rectal exam as his primary had been concerned for possible prostate involvement. Patient is not having any prostate tenderness. No abnormalities palpated. Heme-negative stool. Will obtain postvoid residual Spoke with Dr. Toribio who also advised repeat imaging with IV contrast. Discussed this plan with the patient who is in agreement. Will also obtain repeat blood cultures. He advised beginning patient on IV Zosyn after obtaining cultures. Laboratory evaluation significant for hypokalemia with potassium of 2.9, will give oral and IV potassium. Patient will remain on monitor. Will obtain EKG. patient received 40 mg p.o. and 10 thus far IV. Lactate 1.0 AST and ALT are also noted to be elevated. Is not been elevated yesterday at the time of discharge EKG performed by my nursing staff, reviewed by Dr. Mills with no acute abnormalities noted, no U waves noted. No ischemic changes Postvoid residual was 0 Was contacted by the radiologist who advised the patient has diverticulitis. They note that the patient's inferior intramural abscess has reduced in size. However, they do notice a small section of abscess between the bladder and colon measuring 2.2 x 1.2 x 2.3 cm. Advised this appears contained against the bladder. No free air noted. We did discuss possible need for IR drainage in the radiologist is concerned that it due to the location this would be quite difficult and that it may need to be performed through the bladder. She has no tiny amount of pelvic free fluid. Enlargement of the prostate noted. He also notes thickening of the bladder wall but feels that this likely associated with the above-noted infection. Contacted Dr. Pizano once again. We discussed the findings of the CT as well as laboratory evaluation. He advised admission for continued IV antibiotics. Does not feel the IR drainage is appropriate at this time given the size of the abscess. He is asked that I place holding orders. We discussed the patient's hyperkalemia and ongoing replenishment as you well as continue antibiotics. Discussed this plan with the patient and his . He voiced understanding and agreement. Patient will be admitted to medical surgical unit. HPI General Mode of arrival: ambulatory . Date/Time Provider Initiated Documentation: 02/06/18 15:42 . Limitations to Documentation: no limitations . Information obtained by: patient and family . History of Present Illness 47 year old M presents to the emergency department with the chief complaint of fever, described as mild, with intensity rated at 1 (denies pain at this time). and is localized to the abdomen (reports he had been having LLQ pain and pain around areas of injection of Lovenox). Patient reports no radiation. Patient started experiencing this day(s) (1) and it has been constant. No relieving factors improve symptom(s), No exacerbating factors reported . Patient notes fever/chills, loss of appetite and malaise; denies chest pain, cough, headaches, nausea/vomiting, rash and shortness of breath. Patient did receive the following treatments prior to arrival, other (has been taking antibiotics as prescribed) Related Data Home Medications Medication Instructions Recorded Confirmed amoxicillin-pot clavulanate 1 tab PO BID #20 tab 02/05/18 02/06/18 Previous Rx's Medication Instructions Recorded amoxicillin-pot clavulanate 1 tab PO BID #20 tab 02/05/18 Allergies Allergy/AdvReac Type Severity Reaction Status Date / Time morphine AdvReac Mild chest Verified 02/06/18 15:49 tighteness General Stated Complaint: Fever CESAR: 2 Review of Systems Constitutional Reports as per HPI, Reports chills, Reports fatigue, Reports fever(s), Denies headache(s), Reports malaise, Reports poor appetite and Reports weakness Eyes Denies change in vision ENT Denies headache(s) Cardiovascular Denies chest pain, Denies dyspnea and Denies dyspnea on exertion Respiratory Denies cough, Denies dyspnea and Denies dyspnea on exertion Gastrointestinal Reports as per HPI, Reports abdominal pain (improving LLQ pain), Denies melena, Reports change in bowel habits (states he has had soft BM x 3 days, one episode today), Denies constipation, Reports loose stools, Denies nausea and Denies vomiting Genitourinary Reports as per HPI (patient reports that he feels that he has post void residual , this sensation has been present since onset of symptoms), Denies dysuria, Denies flank pain, Denies penile discharge, Denies scrotal swelling, Denies testicular pain, Denies urinary frequency, Denies urinary hesitancy and Denies urinary urgency Musculoskeletal Denies back pain Integumentary/Breasts Denies rash and Reports other (patient has areas of ecchymosis over his abdomen which he relates to Lovenox injections) Neurologic Denies headache(s) and Reports weakness Endocrine Reports fatigue Exam Const General: cooperative, comfortable, no acute distress, well developed, well groomed and other (patient appears fatigued) Nutritional Appearance: average body habitus and well nourished Orientation: alert and awake [facility] Mouth: mucous membranes dry (patient appears dry) Resp Effort & Inspection: normal respiratory effort, able to speak in complete sentences and no respiratory distress Auscultation: clear to auscultation bilaterally, no rales, no rhonchi and no wheezes Cardio Rate: regular rate Rhythm: regular rhythm Heart Sounds: S1 normal and S2 normal GI Inspection: normal to inspection, abdominal wall ecchymosis (small areas of ecchymosis consistent with Lovenox injection), no edema, non-distended, no incisions and no visible herniation Palpation: soft, no hepatosplenomegaly, not firm, no guarding, no hernias, no masses, not rigid, tender in the LLQ (mild tenderness with palpation); with no rebound tenderness and No ascites Auscultation: normal bowel sounds Rectal Exam: visual inspection normal, normal sphincter tone, prostate normal, heme negative stool, No hemorrhoids and No tenderness Back/Spine/Pelvis Back: no CVA tenderness Skin General skin exam: no rashes or lesions noted and ecchymosis (as above) Neuro General: alert and awake Cognition: normal cognition Speech: speech normal Gait: normal gait Psych Appearance: grossly normal and well kempt Mental Status: mental status grossly normal Speech and Movement: speech and movement normal Mood: congruent mood Course Vital Signs Temperature 38.4 C H 02/06/18 15:42 Pulse 121 H 02/06/18 15:42 Respiratory Rate 20 02/06/18 15:42 Blood Pressure 120/81 02/06/18 15:42 Pulse Oximetry 96 02/06/18 15:42 Temperature 38.4 C H 02/06/18 15:42 Temperature Source Oral 02/06/18 15:42 Pulse 121 H 02/06/18 15:42 Respiratory Rate 20 02/06/18 15:42 Respiratory Effort 02/06/18 15:45 Blood Pressure 120/81 02/06/18 15:42 Blood Pressure Position Sitting 02/06/18 15:42 Pulse Oximetry 96 02/06/18 15:42 Oxygen Delivery Method Room Air 02/06/18 15:42 Oxygen Flow Rate 0 02/06/18 15:42 Pain Level 0 02/06/18 15:42
[2018-02-06 18:34] LABS: Bilirubin Negative (Negative); Blood Small (Negative); Clarity Clear; Glucose Negative (Negative); Ketones Negative (Negative); Leukocyte Esterase Negative (Negative); Nitrite Negative (Negative); Specific Gravity <= 1.005 (1.005-1.025); Urobilinogen 0.2 EU/dL (Up TO 0.2)
[2018-02-06 18:43] LABS: Bacteria Rare HPF (Negative); C & S Indicated? No; Casts Negative LPF (Negative); Crystals Negative HPF (Negative); Epithelial Cells Rare HPF (Negative); Mucus Negative (Negative); WBC 0-2 HPF (0-5)
[2018-02-06] MEDS: Pantoprazole 40 MG VIAL IVP (21:26)
--- NOTE | 2018-02-06 21:26 | HPE_ITS ---
Date of service: 02/06/18 Time of Service: 21:15 Assessment and Plan (1) Diverticulitis of large intestine with abscess: Current visit: No Status: Acute Diverticulitis?question of intraluminal abscess versus extraluminal. Will continue on IV antibiotics, pain medication, antiemetics, antipyretics, and continue to reassess. Did have fairly long discussion with Mr. Santana in regards to success of conservative management. He is not any emergent need of surgery, but with this latest episode of fever, and malaise. I am not sure that conservative therapy will be successful. In consideration of this, I did discuss at length semi-elective surgery, with urology involved for ureter stent placement, and time to optimize surgical outcomes. For now we will continue with conservative treatments, unless emergent surgical intervention becomes necessary. Hypokalemia?will replace electrolytes as needed Abscess?question whether intraluminal versus extraluminal abscess present. In either case, abscess position difficult for percutaneous drainage, and appears to high for transrectal aspiration. Antibiotics may be able to resolve abscess alone given its small size. Though have not seen much success with this with intraluminal abscesses. Disposition?continue current treatment, further recommendations pending clinical diagnostic findings. History of Present Illness Chief Complaint: Fever Narrative: Mr. Santana is a 47-year-old gentleman well-known to the surgery service. He was discharged yesterday, after being hospitalized for conservative therapy of perforated diverticulitis with abscess. He did well overnight but this morning started to feel weak general malaise, then developed chills with rigors. He was sent to the emergency room for evaluation. Surgery was consulted for admission Review of Systems Constitutional Reports anorexia, Reports chills, Reports fatigue, Reports fever(s), Reports malaise, Reports poor appetite and Reports weakness Eyes Denies blurry vision, Denies diplopia and Denies loss of vision ENT Reports system reviewed and no additional complaints, except as docu Cardiovascular Reports system reviewed and no additional complaints, except as docu Respiratory Reports system reviewed and no additional complaints, except as docu Gastrointestinal Reports abdominal pain, Denies melena, Denies bloating, Denies hematochezia, Denies constipation, Denies heartburn, Reports loose stools, Denies nausea and Denies vomiting Genitourinary Reports urinary frequency, Denies urinary hesitancy and Denies urinary incontinence Musculoskeletal Denies back pain, Denies myalgias and Denies joint swelling Neurologic Reports system reviewed and no additional complaints, except as docu, Denies loss of vision and Reports weakness Psychiatric Reports system reviewed and no additional complaints, except as docu Endocrine Reports system reviewed and no additional complaints, except as docu and Reports fatigue Hematologic/Lymphatic Denies easy bleeding and Denies easy bruising Allergic/Immunologic Reports system reviewed and no additional complaints, except as docu Meds Home Medications Medication Instructions Recorded Confirmed Type amoxicillin-pot clavulanate 1 tab PO BID #20 tab 02/05/18 02/06/18 Rx Allergies Allergy/AdvReac Type Severity Reaction Status Date / Time morphine AdvReac Mild chest Verified 02/06/18 15:49 tighteness Exam Const General: cooperative, healthy appearing and no acute distress Nutritional Appearance: average body habitus Orientation: alert, awake and oriented x3 HENMT Head: normal to inspection, normocephalic and atraumatic Ears: hearing grossly normal bilaterally General nose exam: external nose normal Face and sinus: normal facial exam Mouth: oral mucosae normal Teeth and gingiva: dentition normal Eyes General: appearance normal, both eyes and all related structures Periorbital: periorbital findings normal Sclera: sclerae normal Pupils: PERRL EOM: EOM intact bilaterally Neck Neck: normal visual inspection, trachea midline and supple Chest Chest: normal inspection of the chest Resp Effort & Inspection: normal respiratory effort, no audible wheezes and not labored Auscultation: clear to auscultation bilaterally Cardio Jugular venous pressure: no JVD Rate: regular rate Rhythm: regular rhythm Heart Sounds: S1 normal and S2 normal GI Inspection: normal to inspection and non-distended Palpation: soft, no guarding and tender suprapubicly; with no rebound tenderness Rectal Exam: deferred Skin General skin exam: no rashes or lesions noted Neuro General: moves all extremities, no focal motor deficits and CN's II-XI intact bilaterally Extrem General: normal capillary refill and no clubbing, cyanosis or edema Psych Appearance: grossly normal Attitude: cooperative Judgment: judgment good CT abdomen and pelvis: Impression?diverticulitis in the sigmoid colon small intraluminal abscess no evidence of free air free fluid. Results Labs : 02/06/18 16:25 02/06/18 16:25 Laboratory Results - last 24 hr 02/06/18 02/06/18 02/06/18 16:25 16:25 16:25 WBC 9.39 RBC 4.44 L Hgb 13.6 Hct 40.6 MCV 91.4 MCH 30.6 MCHC 33.5 RDW 11.9 Plt Count 318 MPV 9.4 Immature Gran % 0.4 Neutrophils % 87.9 Lymphocytes % 6.0 Monocytes % 3.9 Eosinophils % 1.6 Basophils % 0.2 Absolute Neutrophils 8.25 H Absolute Lymphocytes 0.56 L Absolute Monocytes 0.37 Absolute Eosinophils 0.15 Absolute Basophils 0.02 Sodium 143 Potassium 2.9 L* Chloride 102 Carbon Dioxide 29.7 Anion Gap 11.3 H BUN 5 L Creatinine 0.95 Estimated GFR/1.73 m2 >= 60.00 Glucose 111 H Lactate 1.1 Calcium 8.9 Total Bilirubin 0.4 AST 126 H ALT 111 H Alkaline Phosphatase 59 Total Protein 7.7 Albumin 2.8 L Lipase 97 Urine Color Urine Clarity Urine pH Ur Specific [place] Urine Protein Urine Ketones Urine Blood Urine Nitrite Urine Bilirubin Urine Urobilinogen Ur Leukocyte Esterase Urine RBC Urine WBC Ur Epithelial Cells Urine Crystals Urine Bacteria Urine Casts Urine Mucus Ur Culture Indicated? Urine Glucose 02/06/18 18:29 WBC RBC Hgb Hct MCV MCH MCHC RDW Plt Count MPV Immature Gran % Neutrophils % Lymphocytes % Monocytes % Eosinophils % Basophils % Absolute Neutrophils Absolute Lymphocytes Absolute Monocytes Absolute Eosinophils Absolute Basophils Sodium Potassium Chloride Carbon Dioxide Anion Gap BUN Creatinine Estimated GFR/1.73 m2 Glucose Lactate Calcium Total Bilirubin AST ALT Alkaline Phosphatase Total Protein Albumin Lipase Urine Color Yellow Urine Clarity Clear Urine pH 7.0 Ur Specific [place] <= 1.005 Urine Protein Negative Urine Ketones Negative Urine Blood Small H Urine Nitrite Negative Urine Bilirubin Negative Urine Urobilinogen 0.2 Ur Leukocyte Esterase Negative Urine RBC 5-10 H Urine WBC 0-2 Ur Epithelial Cells Rare Urine Crystals Negative Urine Bacteria Rare Urine Casts Negative Urine Mucus Negative Ur Culture Indicated? No Urine Glucose Negative Last Vital Signs Temp 37.5 C 02/06/18 18:44 Pulse 62 02/06/18 18:44 Resp 18 02/06/18 18:44 BP 102/67 02/06/18 18:44 Pulse Ox 94 L 02/06/18 18:44
[2018-02-06] MEDS: ACETAMINOPHEN 1,000 MG/100 ML BTL 400 MG IVPB (21:28)
[2018-02-06] MEDS: POTASSIUM CHLORIDE/D5-0.45NACL 1,000 ML 100 MEQ IV (21:31)
[2018-02-06] MEDS: Enoxaparin 40 MG/0.4 ML SYR SC (21:49)
[2018-02-07] VITALS (8 sets, daily range): BP systolic 100–127; BP diastolic 64–86; PULSE 49–68; RESP 16–20; TEMP 36.5–37.1; O2SAT 93–97
[2018-02-07] MEDS: Piperacillin/Tazobactam 3.375 GM VIAL IVPB ×2 (00:09→06:39)
--- NOTE | 2018-02-07 07:06 | PDOC.CMIN ---
- If Service Date Differs Date of service: 02/07/18 Time of Service: 07:07 Care Management Initial Assess REASON FOR HOSPITALIZATION:: Diverticulitis with abcess. PAST MEDICAL HISTORY/PAST SURGICAL HISTORY:: No past medical or surgical history. PREVIOUS FUNCTIONAL STATUS/SOCIAL/FAMILY SUPPORTS:: Manuel resides in his own home in [facility] with his , Nany and their two children. He is employed at [facility] [employer]. He is independent at home and active in the community. CURRENT FUNCTIONAL STATUS:: Manuel is lying in bed with his , Nany, at bedside. He is engaged in conversation, makes good eye contact and is talkative. Manuel reports that at his discharge on 02/05 he was feeling well. On 02/06 he became febrile and returned the hospital per MD suggestion. He denies pain at this time. Manuel continues to receive IV antibiotics and fluids and will likely continue to do so for several days. ADVANCE DIRECTIVES:: None on file at [facility]. Packet provided at last visit; 02/05/2018. Has patient been provided with information about the portal?: Yes Did the patient sign up for the portal?: No CODE STATUS:: Full Code INSURANCE COVERAGE / FINANCIAL ISSUES:: [employer]. CURRENT HOME/COMMUNITY SERVICES/EQUIPMENT:: No home or community services or equipment. PRIMARY CARE PHYSICIAN:: Shubham Tabor. POTENTIAL DISCHARGE NEEDS:: Follow up appointments with surgical provider and PCP. PATIENT/FAMILY EDUCATION NEEDS:: Discharge education, any limitations, and follow up plan of care. Ask Me Three discussion. ANTICIPATED BARRIERS TO DISCHARGE:: No anticipated barriers to discharge identified. TRANSPORTATION:: Manuel will transport via private vehicle with Nany. PLAN:: Manuel will discharge home when medically ready per MD. Anticipate patient will discharge with no services and follow up with surgical provider and PCP. will continue to offer support to patient, family, and care team regarding discharge planning and disposition. Readmission - Within the Past 30 Days Yes or No: Y - Date of First Admission Date of 1st Admission: 02/05/18 - Date of this Admission Date of Admission: 02/06/18 This admission was: Through ED - Office Visit Since 1st Admission Have you seen your PCP in the office since discharge?: No Had an appointment Been Scheduled?: Yes Describe barriers for scheduling or getting an appointment: Patient was discharged on 02/05/18 and re-admitted on 02/06/18. - Speicalist Appointments Have you seen any other specialist since your 1st Admission?: No - I. Interview patient and/or Family Difficulty reaching your doctor or getting an office appt?: No Have you had trouble purchasing/ or taking medication?: No Have you had trouble with getting meals at home?: No Did you feel ready for discharge when you left the last time: Yes Did you call your physician beore you came to the ED?: Yes Did your physician tell you to come in?: Yes How do you think you became sick enough to come back?: Unsure. - Assessment for Readmission Summary of readmission circumstances, based upon interviews: Manuel was discharged from [facility] following an admission for diverticulitis with an abscess. At that time he felt well and reports that he felt ready to return home. Her returned to [facility] and was re-admitted 02/06 following episodes of malaise and fever.
--- NOTE | 2018-02-07 07:13 | INITIAL_ITS ---
- If Service Date Differs Date of service: 02/07/18 Time of Service: 07:07 Care Management Initial Assess REASON FOR HOSPITALIZATION:: Diverticulitis with abcess. PAST MEDICAL HISTORY/PAST SURGICAL HISTORY:: No past medical or surgical history. PREVIOUS FUNCTIONAL STATUS/SOCIAL/FAMILY SUPPORTS:: Manuel resides in his own home in [place] with his , Nany and their two children. He is employed at [facility] [employer]. He is independent at home and active in the community. CURRENT FUNCTIONAL STATUS:: Manuel is lying in bed with his , Nany, at bedside. He is engaged in conversation, makes good eye contact and is talkative. Manuel reports that at his discharge on 02/05 he was feeling well. On 02/06 he became febrile and returned the hospital per MD suggestion. He denies pain at this time. Manuel continues to receive IV antibiotics and fluids and will likely continue to do so for several days. ADVANCE DIRECTIVES:: None on file at [facility]. Packet provided at last visit; 2017. Has patient been provided with information about the portal?: Yes Did the patient sign up for the portal?: No CODE STATUS:: Full Code INSURANCE COVERAGE / FINANCIAL ISSUES:: [employer]. CURRENT HOME/COMMUNITY SERVICES/EQUIPMENT:: No home or community services or equipment. PRIMARY CARE PHYSICIAN:: Shubham Tabor. POTENTIAL DISCHARGE NEEDS:: Follow up appointments with surgical provider and PCP. PATIENT/FAMILY EDUCATION NEEDS:: Discharge education, any limitations, and follow up plan of care. Ask Me Three discussion. ANTICIPATED BARRIERS TO DISCHARGE:: No anticipated barriers to discharge identified. TRANSPORTATION:: Manuel will transport via private vehicle with Nany. PLAN:: Manuel will discharge home when medically ready per MD. Anticipate patient will discharge with no services and follow up with surgical provider and PCP. will continue to offer support to patient, family, and care team regarding discharge planning and disposition. Readmission - Within the Past 30 Days Yes or No: Y - Date of First Admission Date of 1st Admission: 02/05/18 - Date of this Admission Date of Admission: 02/06/18 This admission was: Through ED - Office Visit Since 1st Admission Have you seen your PCP in the office since discharge?: No Had an appointment Been Scheduled?: Yes Describe barriers for scheduling or getting an appointment: Patient was discharged on 02/05/18 and re-admitted on 02/06/18. - Speicalist Appointments Have you seen any other specialist since your 1st Admission?: No - I. Interview patient and/or Family Difficulty reaching your doctor or getting an office appt?: No Have you had trouble purchasing/ or taking medication?: No Have you had trouble with getting meals at home?: No Did you feel ready for discharge when you left the last time: Yes Did you call your physician beore you came to the ED?: Yes Did your physician tell you to come in?: Yes How do you think you became sick enough to come back?: Unsure. - Assessment for Readmission Summary of readmission circumstances, based upon interviews: Manuel was discharged from [facility] following an admission for diverticulitis with an abscess. At that time he felt well and reports that he felt ready to return home. Her returned to [facility] and was re-admitted 02/06 following episodes of malaise and fever.
[2018-02-07 07:42] LABS: Abs Immature Grans 0.03 k/cumm (0.0-0.09); Absolute Basophil Count 0.01 k/cumm (0.0-0.2); Absolute Eosinophil Count 0.27 k/cumm (0.0-0.7); Absolute Lymphocyte Count 1.05 k/cumm (1.2-3.4); Absolute Monocyte Count 0.62 k/cumm (0.11-0.7); Absolute Neutrophil Count 2.84 k/cumm (1.2-6.7); Basophils % 0.2; Eosinophils % 5.6; HCT 35.4 % (40.0-50.0); HGB 11.3 g/dL (13.5-17.5); Immature Grans % 0.6; Lymphocytes % 21.8; Mean Corp. HGB Concentration 31.9 g/dL (32.0-36.0); Mean Corpuscular Hemoglobin 30.1 pg (27.0-33.0); Mean Corpuscular Volume 94.1 fL (80-95); Mean Platelet Volume 9.5 fL (8.0-11.0); Monocytes % 12.9; Neutrophils % 58.9; Platelet Count 288 x1000/uL (130-400); RBC 3.76 m/cumm (4.50-6.00); White Blood Cell Count 4.82 k/cumm (4.4-10.8)
[2018-02-07 07:59] LABS: Anion Gap 9.6 mmol/L (3-11); BUN 4 mg/dL (7-18); C-Reactive Protein 7.46 mg/dL (0.0-0.3); CO2 27.4 mmol/L (21.0-32.0); CREATININE 0.91 mg/dL (0.70-1.30); Calcium 8.4 mg/dL (8.5-10.1); Chloride 107 mmol/L (98-107); Glucose 94 mg/dL (70-100); Magnesium 1.8 mg/dL (1.8-2.4); Potassium 3.6 mmol/L (3.5-5.1); Sodium 144 mmol/L (136-145)
[2018-02-07] MEDS: POTASSIUM CHLORIDE 10 MEQ/100 ML BAG 100 MEQ IVPB ×2 (11:00→16:12)
[2018-02-07] MEDS: Normal Saline Flush 10 ML SYR IVP ×2 (11:01→20:45)
--- NOTE | 2018-02-07 11:10 | PHARADMIT ---
Addendum entered by Delia Ayers 02/08/18 12:02: Pharmacy Note Subjective bowel rest and IV abx continue Objective HR-56 other VS okay BUN-3 electrolytes okay Assessment acetaminophen changed from IV scheduled to PO PRN, pantoprazole discontinued, zosyn continues C.diff negative, blood cultures no growth at 24 hours Plan continue to watch VS, labs and for med changes Original Note: Pharmacy Note Subjective diverticulitis with abscess Objective HR-50 other VS okay electrolytes okay Assessment zosyn restarted yesterday; no PO meds right now Plan continue to watch VS, labs and for med changes FROM PREVIOUS ADMISSION discharged 02/05/18 and readmitted 02/06/18 PAUL PLATA Male : 1970 Emr# [id number] 02/01/18 11:18 - [id number] 1970 Patient Age: 47 Addendum entered by Lorenza Beauchamp 02/04/18 11:50: Pharmacy Note Subjective diverticulitis with abcess, may need more imaging depending on labs Objective vs ok, Assessment pip/tazo IV continues day 5, BC pending Plan continue to watch VS, labs and for med changes Original Note: Addendum entered by Delia Ayers 02/03/18 10:46: Pharmacy Note Subjective low grade fever overnight per progress note Objective VS-okay WBC-11.00(up) Assessment zosyn continues (day 4 starts this evening) acetaminophen and pantoprazole changed from IV to PO yesterday Plan continue to watch VS, labs and for med changes Original Note: Addendum entered by Delia Ayers 02/02/18 14:36: Pharmacy Note Subjective started on clear liquids today Objective VS-okay no labs Assessment zosyn continues (day 3 starts this evening) has been using ketorolac and acetaminophen for pain control no med changes Plan IV abx for a couple of days then PO, if fails IV abs may need surgery Original Note: Admission Pharmacy Clinical Review DIVERTICULITIS W/ABCESS (Obs) Code Status Full Code Current Weight 77.111 kg Renally Cleared and Narrow Therapeutic Index Meds QTc Value / Action Taken BP Control, Fever BP 104/70 Afebrile Pain 6/10 Electrolytes reviewed in range DVT Prophylaxis Opiate Usage / Scheduled Bowel Regimen Ordered Yes/NO (diet is NPO at this time) Plt/SCr for Heparin / Enoxaparin Plt 257 SCr 0.99 INR for Warfarin H/H stable, WBC/Bands H/H 12.6/39.0 WBC 8.37 Antibiotic appropriateness Zosyn 4.5gm q6h Cultures and Sensitivities Surgical ABX d/c within 24 hr DM control / Insulin Dosing BG 91 Heart Failure (Check EF%) (PATRICK's, B-Block, Diuretics) IV to PO Switch Home Meds Reviewed Home Meds Not Ordered No home meds Comments CT shows 3cm abscess
--- NOTE | 2018-02-07 12:17 | W.PM.PROGNOT ---
Assessment and Plan (1) Diverticulitis of large intestine with abscess: Current visit: No Status: Acute Continue conservative management of bowel rest and IV antibiotics. We will slowly advance diet. Question if current occurrence of fevers was from failure of oral antibiotic therapy for perforated diverticulitis, or C. difficile superinfection. Have ordered a C. difficile screen may need to change antibiotic therapy to address C. difficile. Otherwise continue current care. (2) Hypokalemia due to inadequate potassium intake: Start date: 02/06/18 Current visit: Yes Status: Acute Hypokalemia resolved with IV therapy. Original cause is probably multifactorial from diarrhea and poor intake. We will continue to monitor this. Subjective Patient reports: no new complaints, feels better, tolerating liquids well, voiding w/o difficulty, diarrhea and afebrile; denies nausea, vomiting and shortness of breath Interval history since last seen: 47-year-old male with perforated diverticulitis with abscess currently hemodynamically stable being treated with conservative therapy of IV antibiotics bowel rest. Exam Const General: cooperative, comfortable and well developed Nutritional Appearance: average body habitus and well nourished Orientation: alert, awake and oriented x3 Resp Effort & Inspection: normal respiratory effort, no audible wheezes and no grunting Auscultation: clear to auscultation bilaterally Cardio Jugular venous pressure: no JVD Rate: regular rate Rhythm: regular rhythm GI Inspection: normal to inspection Palpation: soft, no guarding and nontender Percussion: normal to percussion Auscultation: normal bowel sounds Rectal Exam: deferred Objective Objective Clinical Data: Temp Pulse Resp BP Pulse Ox 36.6 C 50 L 16 113/76 97 02/07/18 07:47 02/07/18 08:45 02/07/18 08:45 02/07/18 07:47 02/07/18 08:45 Vital Signs - 24 hr 02/06/18 15:42 02/06/18 16:32 02/06/18 17:00 Temperature 38.4 C H 38.4 C H Pulse 121 H 75 Pulse [Bilateral Posterior Throughout] Respiratory Rate 20 16 Respiratory Rate [Bilateral Posterior Throughout] Blood Pressure 120/81 110/65 Pulse Oximetry 96 96 Pulse Oximetry [Bilateral Posterior Throughout] 02/06/18 17:15 02/06/18 17:30 02/06/18 17:45 Temperature Pulse 79 76 67 Pulse [Bilateral Posterior Throughout] Respiratory Rate 16 18 18 Respiratory Rate [Bilateral Posterior Throughout] Blood Pressure 108/69 102/54 L 97/62 L Pulse Oximetry 95 95 96 Pulse Oximetry [Bilateral Posterior Throughout] 02/06/18 18:12 02/06/18 18:15 02/06/18 18:44 Temperature 37.0 C 37.0 C 37.5 C Pulse 63 63 62 Pulse [Bilateral Posterior Throughout] Respiratory Rate 16 16 18 Respiratory Rate [Bilateral Posterior Throughout] Blood Pressure 102/69 102/69 102/67 Pulse Oximetry 96 96 94 L Pulse Oximetry [Bilateral Posterior Throughout] 02/07/18 00:10 02/07/18 04:00 02/07/18 07:47 Temperature 36.5 C 36.7 C 36.6 C Pulse 64 68 56 L Pulse [Bilateral Posterior Throughout] Respiratory Rate 18 18 20 Respiratory Rate [Bilateral Posterior Throughout] Blood Pressure 100/64 114/71 113/76 Pulse Oximetry 97 97 96 Pulse Oximetry [Bilateral Posterior Throughout] 02/07/18 08:45 Temperature Pulse Pulse [Bilateral Posterior Throughout] 50 L Respiratory Rate Respiratory Rate [Bilateral Posterior Throughout] 16 Blood Pressure Pulse Oximetry Pulse Oximetry [Bilateral Posterior Throughout] 97 Intake & Output 02/05/18 02/06/18 02/07/18 02/08/18 06:59 06:59 06:59 06:59 Intake Total 1941.666 / 1941.666 Output Total 300 / 300 Balance 1641.666 / 1641.666 Weight 74.843 kg Laboratory Last Values WBC 4.82 k/cumm (4.4-10.8) D 02/07/18 06:50 RBC 3.76 m/cumm (4.50-6.00) L 02/07/18 06:50 Hgb 11.3 g/dL (13.5-17.5) L D 02/07/18 06:50 Hct 35.4 % (40.0-50.0) L 02/07/18 06:50 MCV 94.1 fL (80-95) 02/07/18 06:50 MCH 30.1 pg (27.0-33.0) 02/07/18 06:50 MCHC 31.9 g/dL (32.0-36.0) L 02/07/18 06:50 RDW 12.0 % (11.8-14.1) 02/07/18 06:50 Plt Count 288 x1000/uL (130-400) 02/07/18 06:50 MPV 9.5 fL (8.0-11.0) 02/07/18 06:50 Immature Gran % 0.6 02/07/18 06:50 Neutrophils % 58.9 02/07/18 06:50 Lymphocytes % 21.8 02/07/18 06:50 Monocytes % 12.9 02/07/18 06:50 Eosinophils % 5.6 02/07/18 06:50 Basophils % 0.2 02/07/18 06:50 Absolute Neutrophils 2.84 k/cumm (1.2-6.7) 02/07/18 06:50 Absolute Lymphocytes 1.05 k/cumm (1.2-3.4) L 02/07/18 06:50 Absolute Monocytes 0.62 k/cumm (0.11-0.7) 02/07/18 06:50 Absolute Eosinophils 0.27 k/cumm (0.0-0.7) 02/07/18 06:50 Absolute Basophils 0.01 k/cumm (0.0-0.2) 02/07/18 06:50 Sodium 144 mmol/L (136-145) 02/07/18 06:50 Potassium 3.6 mmol/L (3.5-5.1) D 02/07/18 06:50 Chloride 107 mmol/L (98-107) 02/07/18 06:50 Carbon Dioxide 27.4 mmol/L (21.0-32.0) 02/07/18 06:50 Anion Gap 9.6 mmol/L (3-11) 02/07/18 06:50 BUN 4 mg/dL (7-18) L 02/07/18 06:50 Creatinine 0.91 mg/dL (0.70-1.30) 02/07/18 06:50 Estimated GFR/1.73 m2 >= 60.00 (mL/min/1.73m2) 02/07/18 06:50 Glucose 94 mg/dL (70-100) 02/07/18 06:50 Lactate 1.1 mmol/L (0.6-1.4) 02/06/18 16:25 Calcium 8.4 mg/dL (8.5-10.1) L 02/07/18 06:50 Magnesium 1.8 mg/dL (1.8-2.4) 02/07/18 06:50 Total Bilirubin 0.4 mg/dL (0.2-1.0) 02/06/18 16:25 AST 126 U/L (15-37) H 02/06/18 16:25 ALT 111 U/L (12-78) H 02/06/18 16:25 Alkaline Phosphatase 59 U/L (46-116) 02/06/18 16:25 C-Reactive Protein 7.46 mg/dL (0.0-0.3) H 02/07/18 06:50 Total Protein 7.7 g/dL (6.4-8.2) 02/06/18 16:25 Albumin 2.8 g/dL (3.4-5.0) L 02/06/18 16:25 Lipase 97 U/L (73-393) 02/06/18 16:25 Urine Color Yellow (Yellow) 02/06/18 18:29 Urine Clarity Clear 02/06/18 18:29 Urine pH 7.0 (5-8) 02/06/18 18:29 Ur Specific [place] <= 1.005 (1.005-1.025) 02/06/18 18:29 Urine Protein Negative mg/dL (Negative) 02/06/18 18:29 Urine Ketones Negative mg/dL (Negative) 02/06/18 18:29 Urine Blood Small (Negative) H 02/06/18 18:29 Urine Nitrite Negative (Negative) 02/06/18 18:29 Urine Bilirubin Negative (Negative) 02/06/18 18:29 Urine Urobilinogen 0.2 EU/dL (Up TO 0.2) 02/06/18 18:29 Ur Leukocyte Esterase Negative (Negative) 02/06/18 18:29 Urine RBC 5-10 (0-2) H 02/06/18 18:29 Urine WBC 0-2 HPF (0-5) 02/06/18 18:29 Ur Epithelial Cells Rare HPF (Negative) 02/06/18 18:29 Urine Crystals Negative HPF (Negative) 02/06/18 18:29 Urine Bacteria Rare HPF (Negative) 02/06/18 18:29 Urine Casts Negative LPF (Negative) 02/06/18 18:29 Urine Mucus Negative (Negative) 02/06/18 18:29 Ur Culture Indicated? No 02/06/18 18:29 Urine Glucose Negative mg/dL (Negative) 02/06/18 18:29
[2018-02-07] MEDS: PIPERACILLIN/TAZO 3.375 GM in Normal Saline 50 ML IVPB ×2 (12:53→18:29)
[2018-02-07] MEDS: Pantoprazole 40 MG VIAL IVP (20:45)
[2018-02-07] MEDS: Enoxaparin 40 MG/0.4 ML SYR SC (20:46)
[2018-02-07] MEDS: POTASSIUM CHLORIDE/D5-0.45NACL 1,000 ML 100 MEQ IV (20:51)
[2018-02-08] VITALS (7 sets, daily range): BP systolic 106–123; BP diastolic 67–82; PULSE 44–56; RESP 15–20; TEMP 35.6–37; O2SAT 96–99
[2018-02-08] MEDS: PIPERACILLIN/TAZO 3.375 GM in Normal Saline 50 ML IVPB ×5 (00:11→23:29)
[2018-02-08 07:30] LABS: Anion Gap 8.7 mmol/L (3-11); BUN 3 mg/dL (7-18); CO2 29.3 mmol/L (21.0-32.0); CREATININE 0.88 mg/dL (0.70-1.30); Calcium 8.8 mg/dL (8.5-10.1); Chloride 105 mmol/L (98-107); Glucose 95 mg/dL (70-100); Potassium 3.6 mmol/L (3.5-5.1); Sodium 143 mmol/L (136-145)
--- NOTE | 2018-02-08 08:18 | PDOC.CMPRO ---
- If Service Date Differs Date of service: 02/08/18 Time of Service: 08:18 Care Management Progress Note S/O: Manuel is sitting on the edge of his bed when CM visits this morning. He is engaged in conversation, makes good eye contact, and is talkative. Manuel reports irritation that his IV pump has been continually alarming this morning. [facility] aware. Manuel would like to shower but otherwise has no requests or complaints. He reports that he's feeling well and thinks he slept well last night. Manuel continues to receive IV antibiotics and fluids and remains NPO for bowel rest. A: 47 year old male admitted for diverticulitis with abscess. P: Manuel will discharge home when medically ready per MD. Anticipate patient will discharge with no services and follow up with surgical services and PCP. Manuel will transport via private vehicle with his , Nany. CM will continue to offer support to patient, family, and care team regarding discharge planning and disposition.
[2018-02-08] MEDS: POTASSIUM CHLORIDE/D5-0.45NACL 1,000 ML 100 MEQ IV ×2 (08:58→23:29)
[2018-02-08] MEDS: Normal Saline Flush 10 ML SYR IVP ×3 (08:58→22:56)
--- NOTE | 2018-02-08 10:32 | W.PM.PROGNOT ---
Assessment and Plan (1) Diverticulitis of large intestine with abscess: Current visit: No Status: Acute Continue conservative management of bowel rest and IV antibiotics. Advanced to full liquids to day. C diff is negative. He is feeling better, no longer having urinary symptoms Subjective Patient reports: no new complaints, feels better, tolerating liquids well, voiding w/o difficulty, diarrhea and afebrile; denies nausea, vomiting and shortness of breath Interval history since last seen: 47-year-old male with perforated diverticulitis with abscess currently hemodynamically stable being treated with conservative therapy of IV antibiotics bowel rest. Exam Const General: cooperative, healthy appearing, comfortable, no acute distress and well developed Nutritional Appearance: average body habitus and well nourished Orientation: alert, awake and oriented x3 Resp Effort & Inspection: normal respiratory effort, no audible wheezes, no grunting and not labored Auscultation: clear to auscultation bilaterally Cardio Jugular venous pressure: no JVD Rate: regular rate Rhythm: regular rhythm Heart Sounds: S1 normal and S2 normal GI Inspection: normal to inspection and non-distended Palpation: soft, no guarding and nontender Percussion: normal to percussion Auscultation: normal bowel sounds Rectal Exam: deferred Skin General skin exam: no rashes or lesions noted Psych Appearance: grossly normal Attitude: cooperative Judgment: judgment good Objective Objective Clinical Data: Vital Signs - 24 hr 02/07/18 11:10 02/07/18 16:17 02/07/18 20:25 Temperature 36.7 C 37.0 C 37.1 C Pulse 54 L 56 L 49 L Respiratory Rate 20 20 19 Blood Pressure 113/86 127/83 127/85 Pulse Oximetry 97 93 L 97 02/07/18 21:05 02/08/18 00:26 02/08/18 03:52 Temperature 37.1 C 37 C 35.6 C L Pulse 49 L 44 L 54 L Respiratory Rate 19 18 17 Blood Pressure 127/85 111/76 115/78 Pulse Oximetry 97 96 98 02/08/18 07:40 Temperature 35.7 C L Pulse 56 L Respiratory Rate 17 Blood Pressure 119/82 Pulse Oximetry 99 Intake & Output 02/06/18 02/07/18 02/08/18 02/09/18 06:59 06:59 06:59 06:59 Intake Total 1941.666 / 7423.121 6842 / 3430 1020 / 1020 Output Total 300 / 300 Balance 1641.666 / 8448.564 6943 / 3430 1020 / 1020 Weight 74.843 kg Laboratory Last Values WBC 4.82 k/cumm (4.4-10.8) D 02/07/18 06:50 RBC 3.76 m/cumm (4.50-6.00) L 02/07/18 06:50 Hgb 11.3 g/dL (13.5-17.5) L D 02/07/18 06:50 Hct 35.4 % (40.0-50.0) L 02/07/18 06:50 MCV 94.1 fL (80-95) 02/07/18 06:50 MCH 30.1 pg (27.0-33.0) 02/07/18 06:50 MCHC 31.9 g/dL (32.0-36.0) L 02/07/18 06:50 RDW 12.0 % (11.8-14.1) 02/07/18 06:50 Plt Count 288 x1000/uL (130-400) 02/07/18 06:50 MPV 9.5 fL (8.0-11.0) 02/07/18 06:50 Immature Gran % 0.6 02/07/18 06:50 Neutrophils % 58.9 02/07/18 06:50 Lymphocytes % 21.8 02/07/18 06:50 Monocytes % 12.9 02/07/18 06:50 Eosinophils % 5.6 02/07/18 06:50 Basophils % 0.2 02/07/18 06:50 Absolute Neutrophils 2.84 k/cumm (1.2-6.7) 02/07/18 06:50 Absolute Lymphocytes 1.05 k/cumm (1.2-3.4) L 02/07/18 06:50 Absolute Monocytes 0.62 k/cumm (0.11-0.7) 02/07/18 06:50 Absolute Eosinophils 0.27 k/cumm (0.0-0.7) 02/07/18 06:50 Absolute Basophils 0.01 k/cumm (0.0-0.2) 02/07/18 06:50 Sodium 143 mmol/L (136-145) 02/08/18 06:25 Potassium 3.6 mmol/L (3.5-5.1) 02/08/18 06:25 Chloride 105 mmol/L (98-107) 02/08/18 06:25 Carbon Dioxide 29.3 mmol/L (21.0-32.0) 02/08/18 06:25 Anion Gap 8.7 mmol/L (3-11) 02/08/18 06:25 BUN 3 mg/dL (7-18) L 02/08/18 06:25 Creatinine 0.88 mg/dL (0.70-1.30) 02/08/18 06:25 Estimated GFR/1.73 m2 >= 60.00 (mL/min/1.73m2) 02/08/18 06:25 Glucose 95 mg/dL (70-100) 02/08/18 06:25 Lactate 1.1 mmol/L (0.6-1.4) 02/06/18 16:25 Calcium 8.8 mg/dL (8.5-10.1) 02/08/18 06:25 Magnesium 1.8 mg/dL (1.8-2.4) 02/07/18 06:50 Total Bilirubin 0.4 mg/dL (0.2-1.0) 02/06/18 16:25 AST 126 U/L (15-37) H 02/06/18 16:25 ALT 111 U/L (12-78) H 02/06/18 16:25 Alkaline Phosphatase 59 U/L (46-116) 02/06/18 16:25 C-Reactive Protein 7.46 mg/dL (0.0-0.3) H 02/07/18 06:50 Total Protein 7.7 g/dL (6.4-8.2) 02/06/18 16:25 Albumin 2.8 g/dL (3.4-5.0) L 02/06/18 16:25 Lipase 97 U/L (73-393) 02/06/18 16:25 Urine Color Yellow (Yellow) 02/06/18 18:29 Urine Clarity Clear 02/06/18 18:29 Urine pH 7.0 (5-8) 02/06/18 18:29 Ur Specific [place] <= 1.005 (1.005-1.025) 02/06/18 18:29 Urine Protein Negative mg/dL (Negative) 02/06/18 18:29 Urine Ketones Negative mg/dL (Negative) 02/06/18 18:29 Urine Blood Small (Negative) H 02/06/18 18:29 Urine Nitrite Negative (Negative) 02/06/18 18:29 Urine Bilirubin Negative (Negative) 02/06/18 18:29 Urine Urobilinogen 0.2 EU/dL (Up TO 0.2) 02/06/18 18:29 Ur Leukocyte Esterase Negative (Negative) 02/06/18 18:29 Urine RBC 5-10 (0-2) H 02/06/18 18:29 Urine WBC 0-2 HPF (0-5) 02/06/18 18:29 Ur Epithelial Cells Rare HPF (Negative) 02/06/18 18:29 Urine Crystals Negative HPF (Negative) 02/06/18 18:29 Urine Bacteria Rare HPF (Negative) 02/06/18 18:29 Urine Casts Negative LPF (Negative) 02/06/18 18:29 Urine Mucus Negative (Negative) 02/06/18 18:29 Ur Culture Indicated? No 02/06/18 18:29 Urine Glucose Negative mg/dL (Negative) 02/06/18 18:29 Microbiology 02/07/18 19:30 Stool Clostridium difficile Screen - Final 02/06/18 16:55 Blood Blood Culture - Preliminary NO GROWTH 24 HOURS 02/06/18 16:25 Blood Blood Culture - Preliminary NO GROWTH 24 HOURS
[2018-02-08] MEDS: Enoxaparin 40 MG/0.4 ML SYR SC (20:21)
[2018-02-09 04:07] VITALS: BP 113/72; PULSE 50; RESP 15; TEMP 36; O2SAT 95
[2018-02-09] MEDS: PIPERACILLIN/TAZO 3.375 GM in Normal Saline 50 ML IVPB ×2 (05:49→12:42)
--- NOTE | 2018-02-09 06:56 | PGE_ITS ---
Documented by User: MELLISA Calle 02/09/18 07:06 Assessment and Plan (1) Diverticulitis of large intestine with abscess: Current visit: Yes Status: Acute A// Improvement in urinary symptoms. No abdominal pain. Afebrile since Friday (02/07). P// Antibiotics- Continue Zosyn Diet- Continue Full liquid diet Right Forearm- Discussed use of warm compresses for symptomatic treatment and gentle massage to the area. Activity- Ambulation ADLIB. Encouraged to ambulate in the hallway. Pulmonary- Continue use of incentive spirometer and ambulation in the hallway Subjective Patient reports: denies nausea and vomiting Interval history since last seen: Mr. Santana is feeling better today. Reports that he feels his urinary symptoms have improved. He describes urinary frequency secondary to IV fluids. Denies abdominal pain. Denies fever, chills, or night sweats. Tolerating full liquid diet without complaints of abdominal pain. Patient complains of right forearm discomfort from previous IV placement. This was removed last night, however continues to be sore to palpation. Exam Const General: cooperative, comfortable and no acute distress Resp Effort & Inspection: normal respiratory effort Auscultation: clear to auscultation bilaterally and no wheezes Cardio Jugular venous pressure: no JVD Rate: regular rate Rhythm: regular rhythm Heart Sounds: S1 normal, S2 normal, no gallops and no murmurs GI Inspection: non-distended Palpation: soft, no guarding and nontender Skin General skin exam: no rashes or lesions noted Other: Right forearm mild swelling near a previous IV site. Tender with palpation. No erythema or warmth appreciated. Objective Objective Clinical Data: Abnormal lab results 02/08/18 Range/Units 06:25 BUN 3 L (7-18) mg/dL Vital Signs Temperature 36 C L 02/09/18 04:07 Temperature Source Tympanic 02/09/18 04:07 Pulse 50 L 02/09/18 04:07 Pulse Rhythm Regular 02/08/18 19:41 Respiratory Rate 15 02/09/18 04:07 Respiratory Effort Non-Labored 02/08/18 19:41 Respiratory Depth Normal 02/08/18 19:41 Respiratory Pattern Normal 02/08/18 19:41 Blood Pressure 113/72 02/09/18 04:07 Blood Pressure Position Sitting 02/06/18 15:42 Pulse Oximetry 95 02/09/18 04:07 Oxygen Delivery Method Room Air 02/09/18 04:07 Oxygen Flow Rate 0 02/09/18 04:07 Pain Level 0 02/08/18 19:41 Intake & Output 02/08/18 02/08/18 02/09/18 11:59 23:59 11:59 Intake Total 2440 / 2440 1481.667 / 1481.667 933.333 / 933.333 Balance 2440 / 2440 1481.667 / 1481.667 933.333 / 933.333 Intake: IV 1160 / 1160 1121.667 / 1121.667 633.333 / 633.333 Oral 1280 / 1280 360 / 360 300 / 300 Other: Comment Void x1 in the toilet. Void x1 in the toilet. Stool Characteristics Liquid Brown Voiding Methods Toilet Toilet Laboratory Results WBC 4.82 k/cumm (4.4-10.8) D 02/07/18 06:50 RBC 3.76 m/cumm (4.50-6.00) L 02/07/18 06:50 Hgb 11.3 g/dL (13.5-17.5) L D 02/07/18 06:50 Hct 35.4 % (40.0-50.0) L 02/07/18 06:50 MCV 94.1 fL (80-95) 02/07/18 06:50 MCH 30.1 pg (27.0-33.0) 02/07/18 06:50 MCHC 31.9 g/dL (32.0-36.0) L 02/07/18 06:50 RDW 12.0 % (11.8-14.1) 02/07/18 06:50 Plt Count 288 x1000/uL (130-400) 02/07/18 06:50 MPV 9.5 fL (8.0-11.0) 02/07/18 06:50 Immature Gran % 0.6 02/07/18 06:50 Neutrophils % 58.9 02/07/18 06:50 Lymphocytes % 21.8 02/07/18 06:50 Monocytes % 12.9 02/07/18 06:50 Eosinophils % 5.6 02/07/18 06:50 Basophils % 0.2 02/07/18 06:50 Absolute Neutrophils 2.84 k/cumm (1.2-6.7) 02/07/18 06:50 Absolute Lymphocytes 1.05 k/cumm (1.2-3.4) L 02/07/18 06:50 Absolute Monocytes 0.62 k/cumm (0.11-0.7) 02/07/18 06:50 Absolute Eosinophils 0.27 k/cumm (0.0-0.7) 02/07/18 06:50 Absolute Basophils 0.01 k/cumm (0.0-0.2) 02/07/18 06:50 Sodium 143 mmol/L (136-145) 02/08/18 06:25 Potassium 3.6 mmol/L (3.5-5.1) 02/08/18 06:25 Chloride 105 mmol/L (98-107) 02/08/18 06:25 Carbon Dioxide 29.3 mmol/L (21.0-32.0) 02/08/18 06:25 Anion Gap 8.7 mmol/L (3-11) 02/08/18 06:25 BUN 3 mg/dL (7-18) L 02/08/18 06:25 Creatinine 0.88 mg/dL (0.70-1.30) 02/08/18 06:25 Estimated GFR/1.73 m2 >= 60.00 (mL/min/1.73m2) 02/08/18 06:25 Glucose 95 mg/dL (70-100) 02/08/18 06:25 Lactate 1.1 mmol/L (0.6-1.4) 02/06/18 16:25 Calcium 8.8 mg/dL (8.5-10.1) 02/08/18 06:25 Magnesium 1.8 mg/dL (1.8-2.4) 02/07/18 06:50 Total Bilirubin 0.4 mg/dL (0.2-1.0) 02/06/18 16:25 AST 126 U/L (15-37) H 02/06/18 16:25 ALT 111 U/L (12-78) H 02/06/18 16:25 Alkaline Phosphatase 59 U/L (46-116) 02/06/18 16:25 C-Reactive Protein 7.46 mg/dL (0.0-0.3) H 02/07/18 06:50 Total Protein 7.7 g/dL (6.4-8.2) 02/06/18 16:25 Albumin 2.8 g/dL (3.4-5.0) L 02/06/18 16: Lipase 97 U/L (73-393) 02/06/18 16:25 Urine Color Yellow (Yellow) 02/06/18 18: Urine Clarity Clear 02/06/18 18: Urine pH 7.0 (5-8) 02/06/18 18: Ur Specific [place] <= 1.005 (1.005-1.025) 02/06/18 18: Urine Protein Negative mg/dL (Negative) 02/06/18 18: Urine Ketones Negative mg/dL (Negative) 02/06/18 18: Urine Blood Small (Negative) H 02/06/18 18:29 Urine Nitrite Negative (Negative) 02/06/18 18: Urine Bilirubin Negative (Negative) 02/06/18 18: Urine Urobilinogen 0.2 EU/dL (Up TO 0.2) 02/06/18 18:29 Ur Leukocyte Esterase Negative (Negative) 02/06/18 18: Urine RBC 5-10 (0-2) H 02/06/18 18:29 Urine WBC 0-2 HPF (0-5) 02/06/18 18:29 Ur Epithelial Cells Rare HPF (Negative) 02/06/18 18:29 Urine Crystals Negative HPF (Negative) 02/06/18 18: Urine Bacteria Rare HPF (Negative) 02/06/18 18: Urine Casts Negative LPF (Negative) 02/06/18 18:29 Urine Mucus Negative (Negative) 02/06/18 18: Ur Culture Indicated? No 02/06/18 18: Urine Glucose Negative mg/dL (Negative) 02/06/18 18:
[2018-02-09 07:45] VITALS: BP 108/74; PULSE 58; RESP 18; TEMP 36.1; O2SAT 98
[2018-02-09 11:13] VITALS: BP 112/76; PULSE 54; RESP 17; TEMP 36.5; O2SAT 97
--- NOTE | 2018-02-09 12:25 | PDOC.CMPRO ---
Care Management Progress Note S/O: Manuel was lying in bed, regular street clothes on-reading a book when CM met with him. He reported he would not be hesitant about leaving today and felt confident that being on IV ABX for a longer duration of time had been helpful. He reported he would be comfortable with returning home but would not be comfortable if leaving resulted in surgery being required later. He also shared that he is currently on solid liquids and has experienced no pain or fever since admission. Undetermined if Manuel will trial oral antibiotics with a period of observation prior to discharge. A: 47 year old male re-admitted for Diverticulitis with Abscess P: Manuel will return home when ready per MD. He will transport via private vehicle with his . CM will continue to follow regarding discharge planning considerations.
[2018-02-09] MEDS: Normal Saline Flush 10 ML SYR IVP (12:41)
[2018-02-09] MEDS: POTASSIUM CHLORIDE/D5-0.45NACL 1,000 ML 100 MEQ IV (14:52)
[2018-02-09 16:29] VITALS: BP 109/66; PULSE 52; RESP 18; TEMP 36.4; O2SAT 96
[2018-02-09 19:47] VITALS: BP 102/57; PULSE 58; RESP 18; TEMP 36.5; O2SAT 96
[2018-02-09] MEDS: Amoxicillin 875/Clav. 125 TAB PO (20:33)
[2018-02-10 00:12] VITALS: BP 119/80; PULSE 54; RESP 18; TEMP 35.8; O2SAT 95
--- NOTE | 2018-02-10 07:01 | PGE_ITS ---
Documented by User: MELLISA Calle 02/10/18 09:16 Assessment and Plan (1) Diverticulitis of large intestine with abscess: Current visit: Yes Status: Acute Continue conservative management with PO antibiotics. Possible D/C home later today after assessing how he tolerates the PO antibiotics and soft, low fiber diet. Subjective Patient reports: feels better and afebrile; denies nausea and vomiting Interval history since last seen: He continues to feel as if he is improving. Denies urinary symptoms, abdominal pain, fevers and chills. He tolerated a soft , low fiber foods last night with no abdominal discomfort and is eager to trial breakfast. He denies any N/V or GI upset from starting PO antibiotics last night. Exam Const General: cooperative, comfortable and no acute distress Orientation: alert and oriented x3 Resp Effort & Inspection: normal respiratory effort Auscultation: clear to auscultation bilaterally Cardio Jugular venous pressure: no JVD Rate: regular rate Rhythm: regular rhythm Heart Sounds: S1 normal, S2 normal, no gallops and no murmurs GI Inspection: non-distended Palpation: soft, no guarding and nontender Auscultation: normal bowel sounds Objective Objective Clinical Data: Vital Signs Temperature 35.8 C L 02/10/18 00:12 Temperature Source Tympanic 02/10/18 00:12 Pulse 54 L 02/10/18 00:12 Pulse Rhythm Regular 02/09/18 22:00 Respiratory Rate 18 02/10/18 00:12 Respiratory Effort 02/09/18 22:00 Respiratory Depth Normal 02/09/18 22:00 Respiratory Pattern Normal 02/09/18 16:05 Blood Pressure 119/80 02/10/18 00:12 Blood Pressure Position Sitting 02/06/18 15:42 Pulse Oximetry 95 02/10/18 00:12 Oxygen Delivery Method Room Air 02/10/18 00:12 Oxygen Flow Rate 0 02/10/18 00:12 Pain Level 0 02/09/18 11:13 Intake & Output 02/09/18 02/09/18 02/10/18 11:59 23:59 11:59 Intake Total 1708.333 / 1708.333 310 / 310 Balance 1708.333 / 1708.333 310 / 310 Intake: IV 1048.333 / 1048.333 60 / 60 Oral 660 / 660 250 / 250 Other: Urine Appearance Clear Comment pt voiding ad jennifer in toilet; urine not assessed. pt denies issues Voiding Methods Toilet Laboratory Results WBC 4.82 k/cumm (4.4-10.8) D 02/07/18 06:50 RBC 3.76 m/cumm (4.50-6.00) L 02/07/18 06:50 Hgb 11.3 g/dL (13.5-17.5) L D 02/07/18 06:50 Hct 35.4 % (40.0-50.0) L 02/07/18 06:50 MCV 94.1 fL (80-95) 02/07/18 06:50 MCH 30.1 pg (27.0-33.0) 02/07/18 06:50 MCHC 31.9 g/dL (32.0-36.0) L 02/07/18 06:50 RDW 12.0 % (11.8-14.1) 02/07/18 06:50 Plt Count 288 x1000/uL (130-400) 02/07/18 06:50 MPV 9.5 fL (8.0-11.0) 02/07/18 06:50 Immature Gran % 0.6 02/07/18 06:50 Neutrophils % 58.9 02/07/18 06:50 Lymphocytes % 21.8 02/07/18 06:50 Monocytes % 12.9 02/07/18 06:50 Eosinophils % 5.6 02/07/18 06:50 Basophils % 0.2 02/07/18 06:50 Absolute Neutrophils 2.84 k/cumm (1.2-6.7) 02/07/18 06:50 Absolute Lymphocytes 1.05 k/cumm (1.2-3.4) L 02/07/18 06:50 Absolute Monocytes 0.62 k/cumm (0.11-0.7) 02/07/18 06:50 Absolute Eosinophils 0.27 k/cumm (0.0-0.7) 02/07/18 06:50 Absolute Basophils 0.01 k/cumm (0.0-0.2) 02/07/18 06:50 Sodium 143 mmol/L (136-145) 02/08/18 06:25 Potassium 3.6 mmol/L (3.5-5.1) 02/08/18 06:25 Chloride 105 mmol/L (98-107) 02/08/18 06:25 Carbon Dioxide 29.3 mmol/L (21.0-32.0) 02/08/18 06:25 Anion Gap 8.7 mmol/L (3-11) 02/08/18 06:25 BUN 3 mg/dL (7-18) L 02/08/18 06:25 Creatinine 0.88 mg/dL (0.70-1.30) 02/08/18 06:25 Estimated GFR/1.73 m2 >= 60.00 (mL/min/1.73m2) 02/08/18 06:25 Glucose 95 mg/dL (70-100) 02/08/18 06:25 Lactate 1.1 mmol/L (0.6-1.4) 02/06/18 16:25 Calcium 8.8 mg/dL (8.5-10.1) 02/08/18 06:25 Magnesium 1.8 mg/dL (1.8-2.4) 02/07/18 06:50 Total Bilirubin 0.4 mg/dL (0.2-1.0) 02/06/18 16:25 AST 126 U/L (15-37) H 02/06/18 16:25 ALT 111 U/L (12-78) H 02/06/18 16:25 Alkaline Phosphatase 59 U/L (46-116) 02/06/18 16:25 C-Reactive Protein 7.46 mg/dL (0.0-0.3) H 02/07/18 06:50 Total Protein 7.7 g/dL (6.4-8.2) 02/06/18 16:25 Albumin 2.8 g/dL (3.4-5.0) L 02/06/18 16:25 Lipase 97 U/L (73-393) 02/06/18 16:25 Urine Color Yellow (Yellow) 02/06/18 18:29 Urine Clarity Clear 02/06/18 18:29 Urine pH 7.0 (5-8) 02/06/18 18:29 Ur Specific [place] <= 1.005 (1.005-1.025) 02/06/18 18:29 Urine Protein Negative mg/dL (Negative) 02/06/18 18:29 Urine Ketones Negative mg/dL (Negative) 02/06/18 18: Urine Blood Small (Negative) H 02/06/18 18: Urine Nitrite Negative (Negative) 02/06/18 18: Urine Bilirubin Negative (Negative) 02/06/18 18: Urine Urobilinogen 0.2 EU/dL (Up TO 0.2) 02/06/18 18: Ur Leukocyte Esterase Negative (Negative) 02/06/18 18: Urine RBC 5-10 (0-2) H 02/06/18 18: Urine WBC 0-2 HPF (0-5) 02/06/18 18:29 Ur Epithelial Cells Rare HPF (Negative) 02/06/18 18: Urine Crystals Negative HPF (Negative) 02/06/18 18: Urine Bacteria Rare HPF (Negative) 02/06/18 18: Urine Casts Negative LPF (Negative) 02/06/18 18: Urine Mucus Negative (Negative) 02/06/18 18: Ur Culture Indicated? No 02/06/18 18: Urine Glucose Negative mg/dL (Negative) 02/06/18 18:
[2018-02-10 07:23] LABS: Platelet Count 386 x1000/uL (130-400)
[2018-02-10 07:40] VITALS: BP 130/81; PULSE 50; RESP 19; TEMP 35.7; O2SAT 98
[2018-02-10] MEDS: Polyethylene Glycol 3350 17 GM PACKET PO (08:17)
[2018-02-10] MEDS: Amoxicillin 875/Clav. 125 TAB PO ×2 (08:17→13:23)
--- NOTE | 2018-02-10 10:21 | PDOC.CMDIS ---
LACE Index Scoring Tool - Questions: Length of Stay (in days): 4 - 6 Acuity (Admit via E.D.?): Yes E.D. Visits: 2 - Answers: Total Score: 9 Risk of Readmission: Low Risk Care Management Discharge Reason for Hospitalization: Diverticulitis with abcess. Discharge Plan: Manuel will return home when ready per MD-he will follow up with surgical services and his PCP. He will transport via private vehicle with his . Patient/Family Education Needs: Review discharge instructions, discuss Ask Me Three.
[2018-02-10 11:28] VITALS: BP 109/69; PULSE 55; RESP 18; TEMP 36.3; O2SAT 97
--- NOTE | 2018-02-10 12:03 | DSE_ITS ---
Date of service: 02/10/18 DS: Diagnosis Discharge Diagnosis (1) Diverticulitis of large intestine with abscess: Status: Acute Discharge Plan Disposition Patient Disposition: HOME Condition: Improving Discharge Details Reason For Visit: DIVERTICULITIS WITH ABCESS Admit Date/Time: 02/06/18 17:19 Admit Provider: Huey Pizano Attending Provider: Huey Pizano Primary Care Provider: Shubham Tabor Home Meds and New Rx's Prescriptions: Continue amoxicillin-pot clavulanate 875-125 mg tablet 1 tab PO TID Qty: 20 RF: 0 Discharge Instructions Instructions: Diverticulitis (DC), Low Fiber Diet (DC), Diverticulitis Diet (DC ) Additional Instructions: General Surgery Discharge Information Discharge Activities: 1. Continue incentive spirometry 10-15 times~every hour while awake and as tolerated 2. Ambulate at least 3 times a day for 15 minutes and as tolerated 3. Out of bed at least 3 times a day for 2 hours at a time, and as tolerated 4. You can shower Restrictions: None Radiology: CT scan will be ordered for . We will call you with the time. Follow-up appointments: Dr. House on Friday02/13/18 at 2 pm. My office is located in the upper level of the [facility] [address] [place] hospital. The office number is [phone]. For any questions or to make, confirm appointments. Other in [] weeks, on [] at []. If you are having fever, chills, nausea, vomiting, pain not controlled with pain medications, bleeding or drainage from your wounds. Call [phone] or [phone] (after hours). I understand the above instructions and have no questions. _ Signature of Patient or Responsible Adult Escort Date/Time _ Name of Responsible Adult Escort _ Sugnature of Nurse Date/Time Stand Alone Forms: Nursing Discharge Form Referrals: Shubham Tabor MD [Primary Care Provider] - Activity:: Activity as Tolerated Equipment/Supplies:: No Equipment Needed Diet:: low fiber diet Discharge Orders Discharge Orders: Discharge Order (Routine); Ordered 02/10/18 Ordered By: Diane House DS: Summary Time Spent with Patient Greater than 30 minutes Exam Const General: comfortable and no acute distress GI Inspection: normal to inspection Palpation: soft and nontender Auscultation: normal bowel sounds DS: Data Vitals/I&O Vitals and I&O: Vital Signs Temperature 97.3 F L 02/10/18 11:28 Temperature Source Tympanic 02/10/18 11:28 Pulse 55 L 02/10/18 11:28 Pulse Rhythm Regular 02/10/18 10:17 Respiratory Rate 18 02/10/18 11:28 Respiratory Effort 02/10/18 10:17 Respiratory Depth Normal 02/10/18 10:17 Respiratory Pattern Normal 02/09/18 16:05 Blood Pressure 109/69 02/10/18 11:28 Blood Pressure Position Sitting 02/06/18 15:42 Pulse Oximetry 97 02/10/18 11:28 Oxygen Delivery Method Room Air 02/10/18 11:28 Oxygen Flow Rate 0 02/10/18 11:28 Pain Level 0 02/09/18 11:13 Intake & Output 02/09/18 02/10/18 02/10/18 23:59 11:59 23:59 Intake Total 310 / 310 760 / 760 Balance 310 / 310 760 / 760 Intake: IV 60 / 60 Oral 250 / 250 760 / 760 Other: Urine Appearance Clear Clear Comment independent in room, pt denies abnormalities Voiding Methods Toilet Labs on day of discharge: Labs from last 24 hours 02/10/18 06:30 Plt Count 386 Preliminary micro results at discharge 02/06/18 16:55 Blood Culture - Preliminary Blood NO GROWTH 72 HOURS 02/06/18 16:25 Blood Culture - Preliminary Blood NO GROWTH 72 HOURS
== END 2018-02-10 13:55 | disposition home or self-care (01) | DRG 392 ==
LOC: ER 16:35 → MS 18:32
PROVIDERS: Admitting Provider Surgery; Emergency Provider Physician Assistant; PCP Internal Medicine; Visit Provider Surgery
DX: K57.20 Diverticulitis of large intestine with perforation and abscess without bleeding (principal); E87.6 Hypokalemia; R19.7 Diarrhea, unspecified; R30.0 Dysuria
CPT/HCPCS: 36415; 80048; 80053; 83690; 87040; 93005; 96361; 96365; 96367; 99223; 99232; 99239; 99285; J1650; 74177; 81003; 81015; 83605; 83735; 85025; 85049; 86140; 87324; 93010; J0131; J1885; J2543; J3480; J3490

== ENCOUNTER 2018-02-13 00:42 | Outpatient (CLI) | payer BC, SELFPAY ==
[2018-02-13] MEDS: Breeza Beverage 473 ML BTL PO ×2 (07:54→07:55)
[2018-02-13] MEDS: Omnipaque 350 MG/ML 50 ML BTL PO (07:55)
[2018-02-13] MEDS: Omnipaque 350 MG/ML 100 ML BTL IJ (09:04)
--- NOTE | 2018-02-13 09:17 | DI.CT_ITS ---
SYMPTOM/DIAGNOSIS: F/U DIVERTICULAR ABSCESS ABDOMEN AND PELVIC CT: CT examination of the abdomen and pelvis was performed with a bolus infusion of 100 cc's of Omnipaque 350 and ingestion of dilute barium. The examination is compared to recent CT of 02/06/18 to re-evaluate a previously described abscess located between sigmoid colon and urinary bladder has decreased in size in comparison with the previous examination and now measures about 2 cm. in diameter. No new abscess identified. No evidence of obstruction. No free fluid or free air in the peritoneal cavity or retroperitoneum. Liver, spleen, pancreas, gallbladder and bile ducts are unremarkable. Adrenals and kidneys appear normal. Abdominal aorta is of normal diameter and no major vascular abnormality is seen. No abdominal or pelvic adenopathy. No abdominal wall hernia. Images obtained through the lung bases are unremarkable. CONCLUSION: Interval decrease in size of previously noted abscess located between sigmoid colon and urinary bladder, the abscess appears to have a complex appearance with at least two cavities seen on sagittal images.
== END 2018-02-13 01:02 ==
PROVIDERS: PCP Internal Medicine; Visit Provider Surgery
DX: K57.20 Diverticulitis of large intestine with perforation and abscess without bleeding (principal)
CPT/HCPCS: 74177; J3490; Q9967

== ENCOUNTER 2018-03-16 17:16 | Outpatient (REF) | payer BC, SELFPAY ==
[2018-03-16 20:55] LABS: Absolute Basophil Count 0.03 k/cumm (0.0-0.2); Absolute Eosinophil Count 0.24 k/cumm (0.0-0.7); Absolute Lymphocyte Count 2.14 k/cumm (1.2-3.4); Absolute Monocyte Count 0.71 k/cumm (0.11-0.7); Absolute Neutrophil Count 3.36 k/cumm (1.2-6.7); Basophils % 0.5; Eosinophils % 3.7; HCT 43.1 % (40.0-50.0); HGB 13.8 g/dL (13.5-17.5); Mean Corpuscular Hemoglobin 30.5 pg (27.0-33.0); Mean Corpuscular Volume 95.1 fL (80-95); Mean Platelet Volume 10.3 fL (8.0-11.0); Neutrophils % 51.8; Platelet Count 228 x1000/uL (130-400); RBC 4.53 m/cumm (4.50-6.00); RBC Distribution Width 13.7 % (11.8-14.1); White Blood Cell Count 6.48 k/cumm (4.4-10.8)
[2018-03-16 21:00] LABS: Bilirubin Negative (Negative); Blood Moderate (Negative); Clarity Clear; Glucose Negative (Negative); Ketones Negative (Negative); Leukocyte Esterase Trace (Negative); Nitrite Negative (Negative); Specific Gravity 1.015 (1.005-1.025); Urobilinogen 0.2 EU/dL (Up TO 0.2); pH 7.5 (5-8)
[2018-03-16 21:25] LABS: ALT 172 U/L (12-78); AST 139 U/L (15-37); Alkaline Phosphatase 68 U/L (46-116); Anion Gap 6.8 mmol/L (3-11); BUN 13 mg/dL (7-18); Bilirubin, Total 0.5 mg/dL (0.2-1.0); CO2 31.2 mmol/L (21.0-32.0); CREATININE 1.04 mg/dL (0.70-1.30); Calcium 9.6 mg/dL (8.5-10.1); Chloride 102 mmol/L (98-107); Glucose 91 mg/dL (70-100); Potassium 4.6 mmol/L (3.5-5.1); Sodium 140 mmol/L (136-145); Total Protein 7.7 g/dL (6.4-8.2)
[2018-03-16 21:58] LABS: Bacteria Rare HPF (Negative); C & S Indicated? No; Casts Negative LPF (Negative); Crystals Negative HPF (Negative); Epithelial Cells Negative HPF (Negative); Mucus Negative (Negative); Other Cells Negative (Negative); WBC 0-2 HPF (0-5)
== END 2018-03-16 17:36 ==
LOC: NCHCN 17:16
PROVIDERS: PCP Internal Medicine; Visit Provider Nurse Practitioner
DX: K57.80 Diverticulitis of intestine, part unspecified, with perforation and abscess without bleeding (principal)
CPT/HCPCS: 80053; 81003; 81015; 85025

== ENCOUNTER 2018-03-17 10:27 | Outpatient (CLI) | payer BC, SELFPAY ==
--- NOTE | 2018-03-17 13:00 | DI.CT_ITS ---
SYMPTOM/DIAGNOSIS: LLQ ABD PAIN, R10.32, H/O DIVERTICULITIS WITH ABSCESS ABDOMEN AND PELVIC CT: Comparison is made with 02/13/18. Images were performed from the lung bases through the ischial tuberosities after IV and oral contrast. The oral contrast is seen in mid to distal small bowel and in the colon to the level of the splenic flexure. Severe diverticulosis of the sigmoid colon is again noted. There has been some interval decrease in the amount of inflammation. Marked thickening is noted of the superior aspect of the bladder adjacent to the sigmoid colon. There has been slight improvement. No new abnormalities are seen. There is no evidence of bowel obstruction. There is no free fluid. IMPRESSION: Mild interval decrease in amount of sigmoid inflammation as well as decrease in size of abscess and inflammation between the sigmoid and bladder.
[2018-03-17] MEDS: Omnipaque 350 MG/ML 100 ML BTL IJ (15:41)
== END 2018-03-17 10:47 ==
PROVIDERS: PCP Internal Medicine; Visit Provider Nurse Practitioner
DX: R10.32 Left lower quadrant pain (principal); K57.32 Diverticulitis of large intestine without perforation or abscess without bleeding
CPT/HCPCS: 74177; J3490

== ENCOUNTER 2018-04-09 09:56 | Day surgery (SDC) | payer BC, SELFPAY ==
[2018-04-09 10:14] VITALS: BP 114/78; PULSE 53; RESP 16; TEMP 36.5; O2SAT 99
[2018-04-09] MEDS: Lactated Ringers 1,000 ML 80 ML IV (10:35)
[2018-04-09] MEDS: CIPROFLOXACIN 400 MG/200 ML BAG 200 MG IVPB (11:25)
[2018-04-09] MEDS: Lidocaine 2% Jelly 6 ML SYR (11:32)
[2018-04-09] MEDS: Omnipaque 300 MG/ML 50 ML BTL (11:33)
--- NOTE | 2018-04-09 11:35 | BLADDER_PTH ---
PATIENT: Manuel Santana LOC: [facility] U#:[id number] AGE/SX: 47/M ROOM: RE04/09/[address]: Carlyle Reyna MD : [id number] BED: DIS: 04/09/2018 SPEC #: [id number] RECD: 04/09/18 12:52 STATUS: JOON REQ #: [id number] JEET: 04/09/18 11:[address]: Carlyle Reyna DEPT: Surgical Specimen RECD BY: Gely Dowling ENTERED: 04/09/18 12:52 SP TYPE: Bladder OTHR DR: Shubham Tabor Tissues: 1 - BLADDER BIOPSY Procedures: GROSS AND MICRO LEVEL 4 Comments: [id number]
--- NOTE | 2018-04-09 11:55 | DI.RAD_ITS ---
SYMPTOM/DIAGNOSIS: ABD PAIN OR RETROGRADE: Fluoroscopy Time: 21.9 sec, 3.35 mGy Under fluoroscopic guidance, Dr Reyna carried out a bilateral retrograde examination. The visualized opacified portions of the ureters and intrarenal collecting structures appear unremarkable. Please see Dr. Reyna's procedure report for further information.
--- NOTE | 2018-04-09 12:03 | W.PM.DSUDISC ---
Discharge Plan Disposition Patient Disposition: HOME Condition: Stable Discharge Details Reason For Visit: LLQ PAIN / CHRONIC DIVERTICULITIS / GROSS HEMATURI Attending Provider: Carlyle Reyna Primary Care Provider: Shubham Tabor Discharge Instructions Additional Instructions: call my office 1 to 2 weeks to review pathology results check with Dr House to make sure no other orders are needed Stand Alone Forms: [facility] ([facility]) Activity:: Activity as Tolerated Diet:: As Tolerated Discharge Orders Discharge Orders: Discharge Order (Routine); Ordered 04/09/18 Ordered By: Carlyle Reyna DS: Diagnosis Discharge Diagnosis (1) Gross hematuria: Status: Acute (2) Diverticulitis of large intestine with abscess: Status: Acute
--- NOTE | 2018-04-09 12:56 | W.COLOREPORT ---
Date of service: 04/09/18 Time of Service: 12:30 Colonoscopy Report Date of procedure: 04/09/18 Pre-op diagnosis general: Hx of Diverticulitis/ ? colovesicular fistula Post-op diagnosis procedure note: same Procedure: Attempted Colonoscopy Flex sig Surgeon: Diane House Anesthesia proc note operative: GETA (Andrés Cueto, MANAGER OF TRANSPORTATION/ ASA 2) Estimated blood loss (mL): 5 Pathology: none sent Complications: None Disposition: PACU Indications: Mr. Santana is a pleasant 47-year-old gentleman who had a complicated bout of diverticulitis with an abscess between the sigmoid colon and bladder he was in hospital for a week with IV antibiotics and then went home on antibiotics. He was recovering quite well when he started to have pain with urination again which is how his diverticulitis started. His primary care physician put him back on p.o. antibiotics and another CT scan was done which showed less inflammation smaller fluid collection but a lot of thickening of the bladder. He saw Dr. Reyna and he was scheduled for a cystoscopy. We discussed doing a colonoscopy at the same time to better visualize the inside of his colon and also make sure that there were not any other polyps or issues. Risks, benefits and complications have been reviewed. Complications include but are not limited to bleeding, pain, perforation, missed small lesion/polyp, sore throat, aspiration and adverse reaction to the medications. Questions were entertained and answered to their satisfaction and they wished to proceed. No guarantees were given or implied. Prep: Miralax/Dulcolax Findings: The scope was advanced to about 20 cm at which point there was a sharp 90 degree angle. I tried to insufflate the bowel to see where I needed to go but was unable to see the opening of the colon. After several attempts the colonoscopy was aborted. Procedure Description: After informed consent was obtained the patient was taken to the operating room for the cystoscopy. Once the cystoscopy was done he was placed in a left decubitous position. The patients name, date of , procedure, allergies to medications and metal in their body was reviewed. A rectal exam was done. External exam was normal. Internal exam revealed a normal sphincter tone and no palpable masses. The prostate was smooth. The scope was then introduced and retro-flexed. No internal hemorrhoids were identified. The scope was then advanced to 20 cm. At this point there was a sharp corner and I was unable to insufflate the bowel to see where the opening was. I attempted getting around this corner 3 times. After the third attempt I stopped. The prep was good to 20 cm. The scope was removed and the patient was woken up and taken back to PACU in stable condition. The patient tolerated the procedure well and there were no immediate complications. Follow up: I will refer the patient to [facility] [place]. I think this is going to be a very difficult and complicated surgery. I have discussed my findings with the patient and his and they are in agreement with referal.
[2018-04-09 12:59] VITALS: BP 94/60; PULSE 47; RESP 18; TEMP 35.9; O2SAT 99
--- NOTE | 2018-04-09 13:06 | COLE_ITS ---
Date of service: 04/09/18 Time of Service: 12:30 Colonoscopy Report Date of procedure: 04/09/18 Pre-op diagnosis general: Hx of Diverticulitis/ ? colovesicular fistula Post-op diagnosis procedure note: same Procedure: Attempted Colonoscopy Flex sig Surgeon: Diane House Anesthesia proc note operative: GETA (Andrés Cueto, MAIL TECHNICIAN/ ASA 2) Estimated blood loss (mL): 5 Pathology: none sent Complications: None Disposition: PACU Indications: Mr. Santana is a pleasant 47-year-old gentleman who had a complicated bout of diverticulitis with an abscess between the sigmoid colon and bladder he was in hospital for a week with IV antibiotics and then went home on antibiotics. He was recovering quite well when he started to have pain with urination again which is how his diverticulitis started. His primary care physician put him back on p.o. antibiotics and another CT scan was done which showed less inflammation smaller fluid collection but a lot of thickening of the bladder. He saw Dr. Reyna and he was scheduled for a cystoscopy. We discussed doing a colonoscopy at the same time to better visualize the inside of his colon and also make sure that there were not any other polyps or issues. Risks, benefits and complications have been reviewed. Complications include but are not limited to bleeding, pain, perforation, missed small lesion/polyp, sore throat, aspiration and adverse reaction to the medications. Questions were entertained and answered to their satisfaction and they wished to proceed. No guarantees were given or implied. Prep: Miralax/Dulcolax Findings: The scope was advanced to about 20 cm at which point there was a sharp 90 degree angle. I tried to insufflate the bowel to see where I needed to go but was unable to see the opening of the colon. After several attempts the colonoscopy was aborted. Procedure Description: After informed consent was obtained the patient was taken to the operating room for the cystoscopy. Once the cystoscopy was done he was placed in a left decubitous position. The patients name, date of , procedure, allergies to medications and metal in their body was reviewed. A rectal exam was done. External exam was normal. Internal exam revealed a normal sphincter tone and no palpable masses. The prostate was smooth. The scope was then introduced and retro-flexed. No internal hemorrhoids were identified. The scope was then advanced to 20 cm. At this point there was a sharp corner and I was unable to insufflate the bowel to see where the opening was. I attempted getting around this corner 3 times. After the third attempt I stopped. The prep was good to 20 cm. The scope was removed and the patient was woken up and taken back to PACU in stable condition. The patient tolerated the procedure well and there were no immediate complications. Follow up: I will refer the patient to [facility] [place]. I think this is going to be a very difficult and complicated surgery. I have discussed my findings with the patient and his and they are in agreement with referal.
--- NOTE | 2018-04-09 13:09 | W.PM.DSUDISC ---
Discharge Plan Disposition Patient Disposition: HOME Condition: Stable Discharge Details Reason For Visit: LLQ PAIN / CHRONIC DIVERTICULITIS / GROSS HEMATURI Attending Provider: Carlyle Reyna Primary Care Provider: Shubham Tabor Discharge Instructions Additional Instructions: call my office 1 to 2 weeks to review pathology results check with Dr House to make sure no other orders are needed Stand Alone Forms: [facility] ([facility]) Activity:: Activity as Tolerated Diet:: As Tolerated Discharge Orders Discharge Orders: Discharge Order (Routine); Ordered 04/09/18 Ordered By: Carlyle Reyna DS: Diagnosis Discharge Diagnosis (1) [place]-vesical fistula: Status: Acute
--- NOTE | 2018-04-09 13:13 | PDOC.DSDIS_ITS ---
Discharge Plan Disposition Patient Disposition: HOME Condition: Stable Discharge Details Reason For Visit: LLQ PAIN / CHRONIC DIVERTICULITIS / GROSS HEMATURI Attending Provider: Carlyle Reyna Primary Care Provider: Shubham Tabor Discharge Instructions Additional Instructions: Findings: Unable to complete Colonoscopy Follow up: No follow up needed with Dr. House. Call if you have increased symptoms. Referal to [facility] [place] Colorectal surgery Please call if you develop: fevers >101.5 Nausea or Vomiting Abdominal pain that is not transient DAY SURGERY UNIT POST COLONOSCOPY INSTRUCTIONS 1. Because there will be medication in your system for the next 24 hours, you may feel a little sleepy. Your coordination will be affected. Therefore: a. Do not drive or operate dangerous equipment for 24 hours. b. Do not drink alcohol beverages for 24 hours (not even beer). c. Plan to go home and rest for the day. 2. Generally there are no restrictions on your activity after a day or so has gone by, but you may feel a bit fatigued for a few days. 3 After you arrive home you may have a light meal and return to a normal diet as you can tolerate it without feeling sick to your stomach. 4. After surgery, you may feel pain or discomfort. This should be only transient, but if it persists please contact your doctor. 5. If there are any questions regarding the findings of your procedure, please feel free to contact your doctor. 6. If you are unable to contact your doctor with a problem, contact the hospital at [phone]. 7. Continue all your regular medications unless directed otherwise. I understand the above instructions and have no questions. Signature of Patient or Responsible Adult Escort Date/Time Name of Responsible Adult Escort Signature of Nurse Date/Time Stand Alone Forms: Colonoscopy Post Instructions, [facility] ([facility]) Activity:: Activity as Tolerated Diet:: As Tolerated Discharge Orders Discharge Orders: Discharge Order (Routine); Ordered 04/09/18 Ordered By: Carlyle Reyna
--- NOTE | 2018-04-09 18:01 | ROE_ITS ---
DATE OF OPERATION: April 09, 2018 PREOPERATIVE DIAGNOSIS: Hematuria. POSTOPERATIVE DIAGNOSIS: Hematuria, with pathology pending. PROCEDURE: Cystoscopy, bladder biopsy with fulguration. SURGEON: Carlyle Reyna M.D. ANESTHESIA: MAC with local. COMPLICATIONS: None. HISTORY: This is a 47-year-old gentleman who has a recent finding of a diverticular abscess. He has been treated with antibiotics. He has had gross hematuria and over the past week has noticed some p neumaturia. He presents for cystoscopy with retrograde pyelogram to ensure that his hematuria is rel ated to his diverticular abscess and not from a primary urologic issue. OPERATIVE REPORT: The patient was brought to the Operating Room on 04/09/18. After successful induc tion of monitored anesthesia care, he was placed in the dorsal lithotomy position. His genitalia was prepped and draped. Two percent Xylocaine jelly was instilled into the urethra to act as a local an esthetic. A 22 Egyptian rigid cystoscope was passed through the urethra into the bladder. The urethra and bladde r were inspected with a 30-degree lens. The pendulous, bulbous, and membranous urethras all appeared normal. The prostatic urethra appeared normal as well. The bladder neck was then entered and the bladder mucosa was inspected. Some debris was found at the base of the bladder. This debris had an appearance of mucus rather than clot. The right side of the bladder appeared quite normal. The right ureteral orifice was identified. I p assed a 6 Egyptian access catheter through the cystoscope into the right ureteral orifice. A retrograd e film was obtained by injecting Omnipaque through the access catheter under fluoroscopic guidance. The right ureter and collecting system appeared normal. The right side drained quite promptly. The left side of the bladder also showed a normal ureteral orifice. More posterior and lateral to th e orifice, however, there appeared to be diffuse, erythematous, pebbly mucosa. There was adherent mu cus in this region. I did not identify a definitive fistulous tract, but the presence of adherent bl ood and mucus made me quite suspicious. I went ahead and biopsied the mucosa in this area using a cold cup biopsy forceps. I then cauterized the biopsy site using a bipolar Bugbee electrode. The bladder was then emptied. The cystoscope was withdrawn. The patient was repositioned for colono scopy by Dr. House. We will plan on discussing the biopsy results with the patient and his by phone. If the patholo gy demonstrates inflammation as I expect, we will proceed with colorectal surgery treatments. cc: Shubham Tabor M.D.
== END 2018-04-09 13:00 | disposition home or self-care (01) ==
PROVIDERS: Surgery; PCP Internal Medicine; Visit Provider Urology
PROC: (CPT 74450; principal; 2018-04-09 12:30)
PROC: 0DJD8ZZ Inspection of Lower Intestinal Tract, Via Natural or Artificial Opening Endoscopic (ICD-10-PCS; CPT 45378; 2018-04-09 12:30)
DX: N30.21 Other chronic cystitis with hematuria (principal); Z87.19 Personal history of other diseases of the digestive system; Z53.09 Procedure and treatment not carried out because of other contraindication
CPT/HCPCS: 52204; 52005; 45378; 88305; 74420; J0744; J1100; J2250; J2405; J3010; Q9967

== ENCOUNTER 2020-10-09 11:48 | Outpatient (REF) | payer BC, SELFPAY ==
--- NOTE | 2020-10-09 11:30 | SKI_PTH ---
PATIENT: Manuel Santana LOC: [facility] U#:[id number] AGE/SX: 49/M ROOM: RE10/09/[address]: MELLISA Garvey : 1970 BED: DIS: 10/09/2020 SPEC #: [id number] RECD: 10/09/20 18:06 STATUS: JOON REQ #: [id number] JEET: 10/09/20 11:[address]: Alexandru Singh DEPT: Surgical Specimen RECD BY: Gely Dowling ENTERED: 10/09/20 18:07 SP TYPE: SKI OTHR DR: Shubham Tabor Tissues: 1 - SKIN BIOPSY(SHAVE/PUNCH) Procedures: SKIN LEVEL 4 Comments: [id number]
== END 2020-10-09 11:49 | disposition home or self-care (01) ==
LOC: LBN 11:48
PROVIDERS: PCP Internal Medicine; Visit Provider Physician Assistant
DX: L98.8 Other specified disorders of the skin and subcutaneous tissue
CPT/HCPCS: 88305

== ENCOUNTER 2021-10-15 08:53 | Day surgery (SDC) | payer BC, SELFPAY ==
--- NOTE | 2021-10-15 06:58 | W.COLOREPORT ---
Colonoscopy Report Date of procedure: 10/15/21 Pre-op diagnosis general: Colon Cancer screening Post-op diagnosis procedure note: same Procedure: Colonoscopy Surgeon: Diane House Anesthesia Type: General:No Airway Estimated blood loss (mL): 0 Pathology: none sent Complications: None Disposition: same day Indications: The patient is here for Colonoscopy pre-op.?His last screening was in 2018, which was not completed due to a tight turn, which could not be passed. He was referred [place] [facility] [place]. 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 Please refer to [facility] [place] OP note and pathology notes, scanned into patient's chart.?He has no family history of colon cancer. He has not had any bowel habit changes. -Discussed colonoscopy bowel prep as well as the procedure. Discussed possible complications of the procedure to include bleeding, pain, perforation, missed small lesion/polyp, sore throat, aspiration and adverse reaction to the medications. Questions were answered to patient?s satisfaction. No guarantees were implied or given.? Prep: Miralax/Dulcolax Procedure Description: After informed consent was obtained the patient was taken to the procedure room and placed in a left decubitous position. Monitors were applied and a time out was done. The patients name, date of , procedure, allergies to medications and metal in their body was reviewed. The patient was then sedated. Once sedated and comfortable a rectal exam was done. External exam was normal. Internal exam revealed a normal sphincter tone and no palpable masses. The prostate felt smooth and slightly enlarged. The scope was then introduced and retro-flexed. no internal hemorrhoids, polyps or masses were identified on retro-flexion. The scope was then advanced to the cecum without difficulty. The ileocecal vlave and appendiceal orifice were identified. The prep was adequate. The scope was then slowly retracted over [] minutes back into the rectum. There were no polyps. There was one diverticulum at the anastamosis noted. The scope was removed and the patient was woken up and taken back to Same day surgery in stable condition. The patient tolerated the procedure well and there were no immediate complications. Follow up: The patient should follow up in 10 years unless they develop changes in bowel habits or other new gastrointestinal complaints.
--- NOTE | 2021-10-15 06:59 | W.PM.DSUDISC ---
Discharge Plan Disposition Patient Disposition: HOME Condition: Good Discharge Details Reason For Visit: Colon Cancer Screening Attending Provider: Diane House Primary Care Provider: Shubham Tabor Discharge Instructions Additional Instructions: Findings: Normal Follow up: 10 years Please call if you develop: fevers >101.5 Nausea or Vomiting Abdominal pain that is not transient Rectal bleeding that is more then a tbsp A hard abdomen and inability to pass gas DAY SURGERY UNIT POST ENDOSCOPY INSTRUCTIONS Instructions for everyone who is given Anesthesia: For your safety, please do the following for the next 24 Hours: a. Do not drive or operate dangerous equipment b. Do not drink alcohol beverages or use any recreational drugs for the first 24 hours or while taking pain medications. The medications in your body may have a reaction that can be dangerous. c. Do not make any important decisions or sign any important papers 1. Generally there are no restrictions on your activity after a day or so has gone by, but you may feel a bit fatigued for a few days. 2. After you arrive home you may have a light meal and return to a normal diet as you can tolerate it without feeling sick to your stomach. 3. After surgery, you may feel pain or discomfort. This should be only transient, but if it persists please contact your doctor. 4. If there are any questions regarding the findings of your procedure, please feel free to contact your doctor. 6. If you are unable to contact your doctor with a problem, contact the hospital at [phone]. 7. Continue all your regular medications unless directed otherwise. I understand the above instructions and have no questions. Signature of Patient or Responsible Adult Escort Date/Time Name of Responsible Adult Escort Signature of Nurse Date/Time Activity:: Activity as Tolerated Diet:: As Tolerated Discharge Orders Discharge Orders: Discharge Order (Routine); Ordered 10/15/21 Ordered By: Diane House
[2021-10-15 10:33] VITALS: BP 119/95; PULSE 84; RESP 16; TEMP 35.9; O2SAT 98
[2021-10-15] MEDS: Lactated Ringers 1,000 ML 80 ML IV (10:55)
--- NOTE | 2021-10-15 11:16 | W.ANESPRE ---
General Info Date of Service Date Performed: 10/15/21 Height: 5 ft 10.5 in Weight: 89.4 kg Body Mass Index (BMI): 27.8 Surgical Procedure: Operation Date: 10/15/21 11:20 Proposed Procedure Side Surgeon p Colonoscopy Diane House MD Meds Allergies and Home Medications Allergies Allergy/AdvReac Type Severity Reaction Status Date / Time morphine AdvReac Mild chest Verified 10/15/21 10:44 tighteness Current Visit Medications: Current Medications Generic Name Dose Route Start Last Admin Trade Name Freq PRN Reason Stop Dose Admin Hyoscyamine Sulfate 0.125 mg 10/15/21 07:00 Hyoscyamine 0.125 Mg Sl/Oral/Chew SL DIRECTED PRN Ringer's Solution 1,000 mls @ 80 mls/hr 10/15/21 06:00 10/15/21 10:55 IV 11/11/21 23:59 80 mls/hr INFUSION JO ANN Administration IV Miscellaneous Supplies 1 each 10/15/21 06:00 Iv Access IV 11/11/21 23:59 DIRECTED JO ANN Ondansetron HCl 4 mg 10/15/21 07:00 Ondansetron 4 Mg/2 Ml Vial IVP Q4H PRN PRN Nausea / Vomiting Sodium Chloride 0 ml 10/15/21 06:00 Normal Saline Flush 10 Ml Syr IV 11/11/21 23:59 PRN PRN Sodium Chloride 0 ml 10/15/21 06:00 Normal Saline 10 Ml Vial IJ 11/11/21 23:59 DIRECTED PRN Sterile Water 0 ml 10/15/21 06:00 Water,Injection,Sterile 10 Ml Vial IJ 11/11/21 23:59 DIRECTED PRN PFSH Active Problems Active Problems: Problem Status Onset Code Constipation K59.00 Screening for colon cancer Z12.11 [place]-vesical fistula N32.1 Diverticulitis of large intestine with abscess K57.20 Medical History Medical History Diverticulitis of intestine with abscess without bleeding Gross hematuria Hypokalemia due to inadequate potassium intake Otorrhea (12/27/13) Tobacco Smoking/Tobacco Use Status: Never Alcohol Alcohol Intake: current Alcohol intake frequency: 3 or more drinks per day Alcohol type: beer Substance Use Substance use: Never Substance use type: does not use Vital Signs and Lab Results Vital Signs Most Recent Vital Signs in EMR: Most Recent Vital Signs Temp Pulse Resp BP Pulse Ox 35.9 C L 84 16 119/95 H 98 10/15/21 10:33 10/15/21 10:33 10/15/21 10:33 10/15/21 10:33 10/15/21 10:33 Lab Results Blood Type / Crossmatch: No Data to Display Complete Blood Count: No Data to Display Complete Metabolic Panel: No Data to Display Liver Function Panel: No Data to Display Coagulation Panel: No Data to Display Cardiac Panel: No Data to Display Arterial Blood Gas: No Data to Display Venous Blood Gas: No Data to Display Pancreas Panel: No Data to Display Thyroid Panel: No Data to Display Infectious Disease: No Data to Display Blood Cultures: No Data to Display Toxicology Panel: No Data to Display Anesthesia Assessment and Plan Anesthesia History Personal History: No History of Anesthesia Complications and No History of General Anesthesia Family History: No Family History of Anesthesia Complications Exercise Tolerance Exercise Tolerance: Metabolic Equivalents>4 Pertinent Negatives Pertinent Negatives: No Symptoms of GERD Cardiac & Pulmonary Exam Cardiac Exam: Normal S1/S2 Heart Sounds Pulmonary Exam: Clear Bilateral Breath Sounds Implantable Cardiac Device Does patient have a Pacemaker or an ICD?: No Airway Exam Known Difficult Airway: No Mallampati Class: 2 Mouth Opening: Normal (> 3cm) Thyromental Distance: Greater than 3 cm Neck Range of Motion: Full ROM Neck Circumference: Normal Teeth Condition: Normal Dentition ASA Classification ASA Score: ASA 2 Emergency Case?: No NPO Status NPO Status: NPO Clears >2 hours, Solids >8 hours Anesthesia Plan Resuscitation Status: Full Code Anesthesia Technique: General Anesthesia Airway Planned: Natural Airway Monitors Used: Standard Monitors
[2021-10-15 11:17] VITALS: BMI 27.8
[2021-10-15 12:53] VITALS: BP 114/94; PULSE 86; RESP 15; TEMP 36.5; O2SAT 94
--- NOTE | 2021-10-15 13:06 | W.ANESPOSTOP ---
Postoperative Evaluation Date, Time and Location Date Performed: 10/15/21 Time Performed: 12:55 Patient Location: Day Surgery Unit Vital Signs Most Recent Imported Vital Signs: Most Recent Vital Signs Temp Pulse Resp BP Pulse Ox 36.5 C 86 15 114/94 H 94 10/15/21 12:53 10/15/21 12:53 10/15/21 12:53 10/15/21 12:53 10/15/21 12:53 Pain Score Most Recent Pain Score: Most Recent Pain Score Pain Level 0 10/15/21 12:53 Assessment Mental Status: Awake (Alert & Oriented to Patient Baseline) Airway and Respiratory Function: Patent airway with normal (patient baseline) respiratory exam Cardiovascular Function: Hemodynamically Stable Hydration Status: Adequately Hydrated Nausea & Vomiting: No Nausea or Vomiting Pain: Pt. Denies Any Pain Peripheral Nerve Block: Patient did not receive a nerve block
[2021-10-15 13:23] VITALS: BP 114/94; PULSE 76; RESP 18; TEMP 36.7; O2SAT 96
== END 2021-10-15 13:44 | disposition home or self-care (01) ==
PROVIDERS: PCP Internal Medicine; Visit Provider Surgery
PROC: 0DJD8ZZ Inspection of Lower Intestinal Tract, Via Natural or Artificial Opening Endoscopic (ICD-10-PCS; CPT 45378; principal; 2021-10-15 11:15)
DX: Z12.11 Encounter for screening for malignant neoplasm of colon (principal); Z98.0 Intestinal bypass and anastomosis status; Z87.19 Personal history of other diseases of the digestive system
CPT/HCPCS: 45378

== ENCOUNTER 2022-12-02 11:35 | Outpatient (REF) | payer BC, SELFPAY ==
[2022-12-02 14:02] LABS: Abs Immature Grans 0.01 10^3/uL (0.0-0.06); Absolute Basophil Count 0.03 10^3/uL (0.0-0.2); Absolute Eosinophil Count 0.15 10^3/uL (0.0-0.7); Absolute Monocyte Count 0.46 10^3/uL (0.1-0.8); Absolute Neutrophil Count 3.16 10^3/uL (1.2-6.7); Basophils % 0.6; Eosinophils % 2.8; HCT 46.3 % (40.0-50.0); HGB 15.9 g/dL (13.5-17.5); Immature Grans % 0.2; Lymphocytes % 28.2; MCH 31.5 pg (27.0-33.0); MCHC 34.3 % (32.0-36.0); MCV 92 fL (80-95); MPV 10.4 fL (8.0-11.0); Monocytes % 8.7; Neutrophils % 59.5; Platelet Count 227 10^3/uL (130-400); RBC 5.05 10^6/uL (4.36-5.78); RDW 11.9 % (11.8-14.1); RDW-SD 40.2 fL; WBC 5.31 10^3/uL (4.4-10.8)
[2022-12-02 14:24] LABS: ALT 32 U/L (16-63); AST 28 U/L (15-37); Albumin 4.2 g/dL (3.4-5.0); Alkaline Phosphatase 75 U/L (46-116); Anion Gap 10.4 mmol/L (3-11); BUN 12 mg/dL (7-18); Bilirubin, Total 0.5 mg/dL (0.2-1.0); CO2 26.6 mmol/L (21.0-32.0); CREATININE 1.2 mg/dL (0.70-1.30); Calcium 9.1 mg/dL (8.5-10.1); Calculated LDL 125 mg/dL (<100); Chloride 102 mmol/L (98-107); Cholesterol 204 mg/dL (<200); Estimated GFR 73.67 (mL/min/1.73m2); Glucose 94 mg/dL (74-106); HDL Cholesterol 52 mg/dL (40-60); Potassium 3.9 mmol/L (3.5-5.1); Sodium 139 mmol/L (136-145); Total Protein 7.7 g/dL (6.4-8.2); Triglyceride 137 mg/dL (<150)
[2022-12-03 09:19] LABS: Hepatitis B Surface Ag Negative (Negative)
[2022-12-03 10:02] LABS: HIV-1/2 Ag & Ab Screen Negative (Negative)
[2022-12-03 10:17] LABS: Hepatitis C Ab w Rflx HCV PCR Negative (Negative)
[2022-12-03 11:18] LABS: Syphilis Serology (RPR) Negative (Negative)
== END 2022-12-02 11:36 | disposition home or self-care (01) ==
LOC: NCHCN 11:35
PROVIDERS: PCP Internal Medicine; Visit Provider Nurse Practitioner Family
DX: Z00.00 Encounter for general adult medical examination without abnormal findings (principal); R74.8 Abnormal levels of other serum enzymes; Z02.1 Encounter for pre-employment examination; Z13.220 Encounter for screening for lipoid disorders; Z11.59 Encounter for screening for other viral diseases; Z11.4 Encounter for screening for human immunodeficiency virus [HIV]
CPT/HCPCS: 80053; 80061; 86803; 87340; 87389; 85025; 86592

== ENCOUNTER 2023-02-04 17:44 | Outpatient (CLI) | payer BC, SELFPAY ==
[2023-02-06 11:43] LABS: TB Interpretation Negative (Negative); TB1 Ag minus Nil 0.02 IU/ml; TB2 Ag minus Nil 0.01 IU/mL
== END 2023-02-04 17:45 | disposition home or self-care (01) ==
LOC: LBO 17:44
PROVIDERS: PCP Internal Medicine; Visit Provider Nurse Practitioner Family
DX: Z02.1 Encounter for pre-employment examination (principal); Z11.1 Encounter for screening for respiratory tuberculosis
CPT/HCPCS: 36415; 86480